=== PATIENT | male | born 1945 | race Caucasian/White ===

== ENCOUNTER 2018-05-07 09:14 | Emergency (ER) | payer MEDICARE, SELFPAY ==
[2018-05-07 09:16] VITALS: BP 127/71; PULSE 84; RESP 14; TEMP 36.9; O2SAT 92; BMI 27.1
--- NOTE | 2018-05-07 09:31 | EKG12_ITS ---
Test Reason : SOB/BACK PAIN Blood Pressure : / mmHG Vent. Rate : 064 BPM Atrial Rate : 065 BPM P-R Int : 252 ms QRS Dur : 082 ms QT Int : 448 ms P-R-T Axes : 062 063 059 degrees QTc Int : 462 ms Sinus rhythm with marked sinus arrhythmia with 1st degree A-V block Otherwise normal ECG Confirmed by KAYLI BARRIOS, BRISSA ([id number]), editor producer ARMAAN GARCIA ([id number]) on 05/12/2018 9:06:52 AM Referred By: HEIDI Confirmed By:BRISSA MILAN MD
--- NOTE | 2018-05-07 09:31 | RAD_ITS ---
STUDY: X-RAY CHEST REASON FOR EXAM: Male, 73 years old. 2 week history of shortness of breath. TECHNIQUE: PA and lateral views of the chest. COMPARISON: Comparison is made with prior study dated August 16, 2014. FINDINGS: EKG electrodes are seen. Stable increased linear markings at the lung bases suggestive of scarring. There is no demonstrated pleural abnormality. There is mild cardiac enlargement. Normal mediastinum and lori. Normal visualized pulmonary arteries. There is atherosclerotic calcification of the aortic arch with tortuosity. There are diffuse degenerative changes of the visualized thoracic spine. Healed fracture of the right 10th rib. There is no demonstrated abnormality of the visualized soft tissue structures of the upper abdomen. RAD/Chest PA and Lateral IMPRESSION: Stable increased markings at the lung bases suggestive of scarring. Mild cardiomegaly. Electronically Signed: Mateo Amador, at 11:15 EST , Service support ,
[2018-05-07 09:50] VITALS: PULSE 73; RESP 17; O2SAT 96
[2018-05-07] MEDS: Ipratropium/Albuterol Sulfate 3 ML AMPUL.NEB INHALATION (09:50)
[2018-05-07 09:55] LABS: Absolute Lymphocyte Count 1.87 X10^3/ul (0.83-4.51); Absolute Neutrophil Count 6.3 X10^3/uL (2.0-7.7); Basophil# 0.02 X10^3/uL; Basophil% 0.2 % (0-1); Eosinophil# 0.23 X10^3/uL; Eosinophils% 2.4 % (0-5); Hematocrit 47.3 % (40-54); Hemoglobin 16.5 g/dl (13.0-16.5); Lymphocyte # 1.87 X10^3/ul (4.0); Lymphocyte % 19.8 % (19-41); Mean Corp Hgb Conc 34.9 g/gl (32-36); Mean Corpuscular Hgb 32.4 pg (27.0-32.0); Mean Corpuscular Volume 92.7 fL (80-94); Mean Platelet Vol. 10.9 fl (6.2-12.0); Monocyte# 0.96 X10^3/uL; Monocyte% 10.2 % (0-10); Neutrophil # 6.32 X10^3/uL (2.7-7.7); Platelet Count 440 K/mm3 (150-450); RBC Distribution Width CV 14.3 % (11.6-14.6); White Blood Count 9.4 K/mm3 (4.4-11.0)
[2018-05-07 10:01] LABS: Anion Gap 7 (5-15); BUN 10 mg/dL (7-18); BUN/Creat Ratio 9.9 RATIO (10-20); Chloride 96 mmol/L (98-107); Creatinine, Serum 1.01 mg/dL (0.70-1.30); EST Glomerular Filtration Rate 77 mL/min (>60); Est Glom Filt Rate - Afr Amer 93 mL/min (>60); Estimated Creatinine Clearance 61.14 ml/min; Glucose 111 mg/dL (74-106); POSITIVE COUNT NO; POSITIVE DIFFERENTIAL NO; POSITIVE MORPHOLOGY NO; Sodium Level 132 mmol/L (136-145)
--- NOTE | 2018-05-07 11:01 | ED.DCSUM_ITS ---
- ER Visit Summary Date of Service: 05/07/18 Chief Complaint: Back pain History of Present Illness: The patient is a 73 M who goes to the [facility]. He reports that he has had a cough for the past 1-2 weeks. Productive green/white sputum without blood. Denies any fever or chills. Does report that he has shortness of breath that is severe with walking or coughing. Is mild at rest. Is not on home O2. He does use albuterol and Symbicort. Patient reports approximately 1 week ago he had the onset of left upper back pain. He describes it as sharp pain is 1010 worst 5-10 currently. Is worsened by movement or coughing. Is relieved by nothing. Denies any radiation to his legs. No numbness or weakness in his legs. No problem with his bowels or his bladder. No groin numbness. No recent trauma. No fall, MVA, or change in activity. Physical Examination: Vitals: Stable. Afebrile. General: A&O x 3. NAD. Cardiovascular exam: Regular rate and rhythm, no murmur, rub or gallop. Respiratory exam: No respiratory distress. Mild wheezing bilaterally. Good air movement. Abdominal exam: Soft, nontender, nondistended, normal bowel sounds. No peritoneal signs. Back: Moderate tenderness palpation of the paraspinous musculature left lower thoracic region. No vertebral tenderness. No point tenderness. Negative straight leg bilaterally. 5/5 DF, PF, EHL bilaterally. Normal sensation to light touch throughout. Extremity: No clubbing, cyanosis, or edema. Test Results: EKG is sinus with first-degree AV block rate is 64 with no acute changes. CBC shows monocytes 10. Chem-7 shows a sodium 132, potassium 3.0, chloride 96, glucose 111. Influenza is negative. Chest x-ray shows chronic changes. Emergency Department Course and Treatment: Patient was treated with morphine and Zofran IV. He was given Solu-Medrol IV. Was given albuterol and Atrovent aerosols. He is resting comfortably. Treatment Plan: Had a prolonged discussion with patient that I suspect that he pulled something in his coughing. He will be discharged with [place] and Colace for pain. He will be placed on a 5-day burst of prednisone and Zithromax for his COPD exacerbation. [facility] if not improving. Return to the emergency department for any worsening symptoms. Disposition: To home in improved and stable condition. Impression: 1. COPD exacerbation. 2. Thoracic back strain. This note was generated with [employer] dictation software. It may contain incorrect words, spelling, and punctuation that were not noted in review of the chart prior to signing ED Disposition - Plan for ED Patient: Disposition: Home or Assisted Living Instructions: ED Spasm Back No Trauma Prescriptions: Oxycodone HCl/Acetaminophen [Percocet 5/325] 1 tablet PO Q6H PRN PRN 5 Days #20 tablet PRN Reason: Pain Azithromycin [Zithromax Z-Garrison] 250 mg PO UD #1 box Docusate Sodium [Colace] 100 mg PO DAILY #20 capsule Potassium Chloride [K-Dur] 40 meq PO DAILY #10 tablet Prednisone [Deltasone] 60 mg PO DAILY #15 tablet [facility] - 3-5 Days if not improving
[2018-05-07] MEDS: MethylPREDNISolone 125 MG/2 ML Vial IV (11:17)
[2018-05-07] MEDS: Ondansetron 4 MG/2 ML Vial IV (11:17)
[2018-05-07] MEDS: Azithromycin 250 MG Tablet 500 MG PO (11:17)
[2018-05-07] MEDS: Morphine 4 MG/ML Syringe IV (11:17)
[2018-05-07] MEDS: 0.9% Normal Saline 1,000 ML 999 ML IV (11:18)
[2018-05-07 11:39] VITALS: O2SAT 92
[2018-05-07 13:39] VITALS: BP 114/70; PULSE 73; RESP 20; O2SAT 91
== END 2018-05-07 13:40 | disposition home or self-care (01) ==
PROVIDERS: Emergency Provider Emergency Medicine
DX: J44.1 Chronic obstructive pulmonary disease with (acute) exacerbation (principal); S29.012A Strain of muscle and tendon of back wall of thorax, initial encounter; X58.XXXA Exposure to other specified factors, initial encounter; Y93.9 Activity, unspecified; Y92.9 Unspecified place or not applicable; Y99.9 Unspecified external cause status; I44.0 Atrioventricular block, first degree; I10 Essential (primary) hypertension; E78.00 Pure hypercholesterolemia, unspecified; F17.210 Nicotine dependence, cigarettes, uncomplicated
CPT/HCPCS: 71046; 80048; 85025; 87804; 93005; 94640; 96361; 96374; 96375; 99285; J7030; A4216; J2405

== ENCOUNTER 2018-05-21 23:14 | Inpatient (IN) | payer OTHER, MEDICARE, SELFPAY ==
[2018-05-21 23:15] VITALS: BP 143/76; PULSE 87; RESP 18; TEMP 37.2; O2SAT 91; BMI 25.0
--- NOTE | 2018-05-21 23:39 | RAD_ITS ---
HISTORY: Cough and short of breath. EXAM: XR Chest 2 Views: COMPARISON: 05/07/18 CXR FINDINGS: LINES/DEVICES: None. LUNGS: There are chronic interstitial changes. Mild emphysema. No pneumothorax. No consolidation or effusion. MEDIASTINUM AND CARDIOVASCULAR STRUCTURES: Cardiac silhouette not enlarged. Central airways and mediastinal contour are unremarkable. BONES AND SOFT TISSUES: Unremarkable. RAD/Chest PA and Lateral IMPRESSION: Chronic interestitial changes and mild emphysema. No radiographic evidence of acute cardiopulmonary disease. at 0143 Reported and signed by: Cali Real MD Electronically Signed: Cali Real, at 1:42 EDT Tel , Service support ,
--- NOTE | 2018-05-21 23:39 | EKG12_ITS ---
Test Reason : SOB Blood Pressure : / mmHG Vent. Rate : 060 BPM Atrial Rate : 070 BPM P-R Int : 236 ms QRS Dur : 080 ms QT Int : 386 ms P-R-T Axes : 048 081 032 degrees QTc Int : 386 ms Sinus rhythm with marked sinus arrhythmia with 1st degree A-V block Otherwise normal ECG Confirmed by KAYLI BARRIOS, BRISSA ([id number]), telegraph editor CATHERINE HORVATH ([id number]) on 05/25/2018 11:45:56 AM Referred By: DR ECHEVARRIA Confirmed By:BRISSA MILAN MD
[2018-05-21 23:50] VITALS: PULSE 72; RESP 26
[2018-05-21] MEDS: Ipratropium/Albuterol Sulfate 3 ML AMPUL.NEB INHALATION (23:59)
[2018-05-21] MEDS: Albuterol 2.5 MG/3 ML VIAL.NEB. INHALATION (23:59)
[2018-05-22] VITALS (18 sets, daily range): BP systolic 102–137; BP diastolic 57–83; PULSE 54–86; RESP 16–29; TEMP 36.6–36.9; O2SAT 92–97; BMI 25.7
[2018-05-22] MEDS: MethylPREDNISolone 125 MG/2 ML Vial IV (00:03)
[2018-05-22 00:19] LABS: Absolute Lymphocyte Count 0.68 X10^3/ul (0.83-4.51); Absolute Neutrophil Count 7.6 X10^3/uL (2.0-7.7); Basophil# 0.02 X10^3/uL; Basophil% 0.2 % (0-1); Hematocrit 46.3 % (40-54); Hemoglobin 16.3 g/dl (13.0-16.5); Lymphocyte # 0.68 X10^3/ul (4.0); Lymphocyte % 7.3 % (19-41); Mean Corp Hgb Conc 35.2 g/gl (32-36); Mean Corpuscular Hgb 33.3 pg (27.0-32.0); Mean Corpuscular Volume 94.5 fL (80-94); Mean Platelet Vol. 11.7 fl (6.2-12.0); Monocyte# 0.99 X10^3/uL; Monocyte% 10.6 % (0-10); Neutrophil # 7.59 X10^3/uL (2.7-7.7); Neutrophil % 81.7 % (47-70); Platelet Count 264 K/mm3 (150-450); RBC Distribution Width CV 14.2 % (11.6-14.6); RBC Distribution Width SD 48.4 fl (35.1-43.9); White Blood Count 9.3 K/mm3 (4.4-11.0)
[2018-05-22 00:20] LABS: POSITIVE COUNT NO; POSITIVE DIFFERENTIAL NO; POSITIVE MORPHOLOGY NO
[2018-05-22 00:31] LABS: Anion Gap 8 (5-15); BUN 14 mg/dL (7-18); BUN/Creat Ratio 13.1 RATIO (10-20); Calcium,Total 8.6 mg/dL (8.5-10.1); Chloride 100 mmol/L (98-107); Creatinine, Serum 1.07 mg/dL (0.70-1.30); EST Glomerular Filtration Rate 72 mL/min (>60); Est Glom Filt Rate - Afr Amer 87 mL/min (>60); Estimated Creatinine Clearance 57.71 ml/min; Glucose 84 mg/dL (74-106); Potassium 3.6 mmol/L (3.5-5.1); Sodium Level 135 mmol/L (136-145)
--- NOTE | 2018-05-22 00:38 | ED.RN ---
PTS SISTER VITA WAS NOTIFIED PER PT REQUEST THAT HE WAS BEING SEEN IN THE EMERGENCY DEPARTMENT AND IS IN STABLE CONDITION. SHE STATED SHE WOULD CALL HIM IN THE MORNING TO CHECK ON HIM
--- NOTE | 2018-05-22 02:23 | ED.VISSUMM ---
- ER Visit Summary Date of Service: 05/22/18 Chief Complaint: Shortness of breath History of Present Illness: The patient is a 73 M who presents with shortness of breath. He does have a history of COPD. He has been worse since yesterday. He complains of congestion rhinorrhea shortness of breath and productive cough. He denies any pain. No fevers or vomiting. Physical Examination: Afebrile initial pulse ox 91% on room air Moist mucous membranes Heart regular rate and rhythm Decreased air exchange inspiratory and expiratory wheezing tachypnea Abdomen soft Alert Skin warm and dry Test Results: EKG shows sinus arrhythmia with a first-degree AV block at a rate of 60 similar to prior. CBC BMP unremarkable. Two-view chest x-ray shows chronic changes no acute disease. Emergency Department Course and Treatment: Patient was treated with IV Solu-Medrol as well as albuterol and Atrovent aerosols. He was placed on nasal cannula. On reevaluation his pulse ox is 92% even on 2 L. He is still tachypneic. Therefore I do feel he will need admitted. He was given additional aerosols and will be discussed with the hospitalist for admission. Treatment Plan: [] Disposition: Admit Impression: Acute COPD exacerbation This note was generated with [employer] dictation software. It may contain incorrect words, spelling, and punctuation that were not noted in review of the chart prior to signing ED Disposition - Plan for ED Patient: [facility] -
[2018-05-22] MEDS: Ipratropium/Albuterol Sulfate 3 ML AMPUL.NEB INHALATION ×6 (02:30→22:17)
[2018-05-22] MEDS: Albuterol 2.5 MG/3 ML VIAL.NEB. INHALATION (02:30)
--- NOTE | 2018-05-22 02:38 | PCM.HP.STD ---
Problem List (1) Tobacco abuse Status: Chronic (2) Chronic obstructive lung disease Status: Chronic (3) Benign essential hypertension Status: Chronic (4) COPD exacerbation Status: Chronic History of Present Illness Date of Admission: 05/22/18 Chief Complaint: shortness of breath The patient is a 73 year old M with a significant history of tobacco abuse; essential hypertension; and COPD who presented to the emergency department because of persistent shortness of breath at rest which markedly increases with exertion. Associated with her symptoms is predominantly dry, but occasionally productive with green sputum. Also he has nasal congestion, runny nose and teary eyes. Reportedly he completed a course of prednisone 1-2 weeks ago. Also he completed a course of azithromycin about a week ago. Past Medical History Past Medical History (Chronic Problems): Chronic Problems COPD exacerbation (Chronic) Tobacco abuse (Chronic) Chronic obstructive lung disease (Chronic) Benign essential hypertension (Chronic) Allergies No Known Allergies Allergy (Verified 05/21/18 23:17) Home Medications: Ambulatory Orders Medication Instructions Recorded Budesonide/Formoterol 160/4.5 2 puff INHALATION BID #1 inhaler 06/27/14 [Symbicort 160/4.5 Mcg Inhaler (SP)] Finasteride [Proscar] 5 mg PO DAILY 08/14/14 Multivitamins,Therapeutic 1 tablet PO DAILY 08/14/14 [Multivitamin] Simvastatin [Zocor] 40 mg PO QHS 08/14/14 Tamsulosin HCl [Flomax] 0.8 mg PO DAILY 08/14/14 Travoprost 0.004% [Travatan 0.004% 1 drop EACH EYE DAILY 08/14/14 Eye Drop] predniSONE tablet 60 mg PO DAILY #15 tablet 08/14/14 Amlodipine [Norvasc] mg PO DAILY 08/15/14 Lisinopril [Zestril] mg PO 08/15/14 hydrOXYzine tablet [Atarax] mg PO TID PRN PRN 08/15/14 Lorazepam [Ativan] 0.5 mg PO TID #14 tablet 08/16/14 Azithromycin [Zithromax Z-Garrison] 250 mg PO UD #1 box 05/07/18 Docusate Sodium [Colace] 100 mg PO DAILY #20 capsule 05/07/18 Potassium Chloride [K-Dur] 40 meq PO DAILY #10 tablet 03/07/19 Prednisone [Deltasone] 60 mg PO DAILY #15 tablet 05/07/18 Surgical History: no surgical history Lives: Alone Smoking Status: Current every day smoker Tobacco Use: Cigarettes Alcohol: None - *Family History Maternal History Items: - - Denies any maternal family history. Paternal History Items: - - Denies any paternal family history. Review of Systems Constitutional: Reports: Anorexia. Denies: Chills, Fever, Weight Change HEENT: Reports: Sinus Congestion, Sinus Drainage. Denies: Head Aches Cardiovascular: Denies: Chest Pain, Palpitations Respiratory: Reports: Cough, Shortness of breath at rest, Sputum production Gastrointestinal: Denies: Abdominal Pain, Nausea, Vomiting Genitourinary: Denies: Dysuria Musculoskeletal: Denies: Joint Pain, Joint Tenderness Skin: Denies: Rash, Wounds Neurological: Denies: Numbness, Tingling, Focal weakness Psychiatric: Denies: Anxiety, Depression, Homicidal Ideations, Suicidal Ideations Hematologic/ Lymphatic: Denies: Easy Bruising, Easy Bleeding VTE Information - Inpt Only VTE Present on Admission: No VTE Mechan Device Prophylaxis: None VTE Pharm Prophylaxis ordered?: Yes - Physical Exam General: Alert, Oriented x3, Cooperative HEENT: Atraumatic, PERRLA, EOMI, Normocephalic Neck: Supple, Trachea Midline Lungs: Diminished, Tachypneic Cardiovascular: Regular rate, No murmurs Abdomen: Bowel Sounds Present, Soft, Non Tender Extremities: No edema, Capillary Refill Less than 3 Seconds Skin: No rashes, No breakdown Musculoskeletal: No Tenderness to Palpation of Joints or Extremities Neurological: Neuro grossly intact Psych/Mental Status: Normal Affect, Appropriate Vital Signs Temp Pulse Resp BP Pulse Ox 99.0 F 70 18 105/57 L 93 05/21/18 23:15 05/22/18 02:30 05/22/18 02:30 05/22/18 01:11 05/22/18 02:31 Oxygen Flow Rate (L/min) 2 Oxygen Delivery Method Nasal Cannula Weight: 74.843 kg Body Mass Index (BMI) 25.0 Laboratory Tests Past 24 Hrs 05/22/18 05/22/18 00:01 00:01 WBC 9.3 RBC 4.90 Hgb 16.3 Hct 46.3 MCV 94.5 H MCH 33.3 H MCHC 35.2 RDW 14.2 RDW Differential 48.4 H Plt Count 264 MPV 11.7 Immature Gran % (Auto) 0.200 Neut % (Auto) 81.7 H Lymph % (Auto) 7.3 L [place] % (Auto) 10.6 H Eos % (Auto) 0.0 Baso % (Auto) 0.2 Absolute Neuts (auto) 7.6 Absolute Lymphs (auto) 0.68 L Total Counted Not Reportable Sodium 135 L Potassium 3.6 Chloride 100 Carbon Dioxide 27.0 Anion Gap 8 BUN 14 Creatinine 1.07 Estim Creat Clear Calc 57.71 Est GFR (MDRD) Af Amer 87 Est GFR (MDRD) Non-Af 72 BUN/Creatinine Ratio 13.1 Glucose 84 Calcium 8.6 Assessment/Plan The patient is a 73 year old M with a significant history of tobacco abuse; essential hypertension; and COPD who presented to the emergency department because of persistent shortness of breath at rest which markedly increases with exertion; productive cough consistent with likely COPD exacerbation. COPD exacerbation CXR independently reviewed confirms hyperinflation without any acute cardia pulmonary process. EKG independently reviewed confirms sinus arrhythmia with first-degree AV block. Review of old records shows that EKG is unchanged. Scheduled DuoNeb Albuterol as needed Solu-Medrol continued Received doxycycline in the emergency department. We will continue exactly. Oxygen as needed. Mucinex ordered. Hypertension On presentation his blood pressure was within goal Trend blood pressures Tobacco abuse Patient smoked 2 packs/day. Counseled Nicotine patch ordered. DVT prophylaxis: subcutaneous Lovenox ordered. Code Visit Inpatient E&M: 01440 Init Hosp L3
[2018-05-22] MEDS: Doxycycline 100 MG CAPSULE PO ×3 (03:00→21:50)
[2018-05-22] MEDS: 0.9% NaCl Peripheral Flush Adult/Peds IV ×3 (05:13→21:50)
[2018-05-22] MEDS: guaiFENesin 1,200 MG Tablet 1200 MG PO ×2 (05:13→21:50)
[2018-05-22] MEDS: Enoxaparin 40 MG/0.4 ML Syringe SC (09:26)
--- NOTE | 2018-05-22 09:34 | NURSING ---
Message left with nurse at [facility] in [place] to get home med list faxed.
--- NOTE | 2018-05-22 10:38 | PCM.PN.BLA ---
Progress Note 73-year-old male with past medical history of chronic nicotine dependence, hypertension, COPD admitted with shortness of breath. Patient was admitted to the floor and managed as acute COPD exacerbation. Respiratory panel was positive for influenza. Started on Tamiflu. He was seen and examined. Complains of feeling of wanting to smoke. Feels restless. Denied any fever or chills. On 2 L of oxygen which is new for him. Vitals are stable. Labs reviewed Chest X-ray negative for acute cardiopulmonary infiltrate Physical exam is significant for patient being relatively dyspneic on 2 L of oxygen, slight central and peripheral cyanosis Generalized wheezes on exam Continue with breathing treatment IV Solu-Medrol, Tamiflu, nicotine replacement, doxycycline
--- NOTE | 2018-05-22 13:20 | CASEMGMT ---
Addendum entered by Jf Montesinos 05/22/18 17:47: Call placed to the [facility] and spoke to SUSANA Hargrove. She was made aware of hospitalization and possible discharge over the weekend. She asked for pt to be instructed to contact [facility] on Friday so they can make a follow-up appt with them. She was made aware pt may discharge home with O2 but will need Home O2 qualification testing completed 1st and that he is agreeable to having it billed through [facility]. She asked for SUSANA VAZQUEZ to complete Home Oxygen Program packet with pt and fax to [facility]. She states if pt would decide in the future to have his O2 be provided through the [facility] instead of [facility], that he would have to drive up to [facility] to complete this paperwork if it is not done here while @ the hospital. SUSANA VAZQUEZ to room to complete Home Oxygen Program packet. Reviewed information with pt and forms signed by pt. Discussed importance of pt not smoking while using Oxygen. Pt voices understanding and states he plans on quitting. Unable to complete entire packet d/t home oxygen qualification testing has not been completed. CM to finish completing this information once it is available. Packet will need faxed to [facility] @ [phone]. Discharge instructions and summary to be faxed to [facility] @ when pt is discharged. Pt instructed to call the [facility] on Friday to schedule a follow-up appt. Pt voices understanding. Gene VELAZQUEZ RN, CM Original Note: SUSANA VAZQUEZ HOTEL OR MOTEL CLEANING SUPERVISOR TAYLOR to room to meet with patient for initial transition planning/care coordination assessment. SUSANA VAZQUEZ introduced self and role at [facility]. Pt voices understanding and consents to assessment at this time. Pt sitting up in bed in no distress at this time. Pt is A/O at this time and answers all questions appropriately. Care providers, pharmacy, and demographics verified/updated at this time. PCP: @ [facility]. CITY PLANT SUPERVISOR SUSANA Avila Specialists: Eye doctor @ [facility]. Preferred Pharmacy: [facility] for short-term. Insurance: [facility] A & B, [facility] Prescription Benefit: @ [facility]. Voices concern over cost of medication [facility], as he does not have any prescription benefit other than [facility]. Pt stated, I don't have any money. Pt states he could afford to pay $10-15 if he needed to. Will need collins check @ [facility] if discharges over the weekend. Pt would like to be notified of [id number] cost before he is discharged. Living Will/HPOA: Does not have LW or HCPOA. States is interested in completing paperwork. Brian FRASER, notified pt wishing to complete AD paperwork and also pt's financial concerns. LNOK: Son, Isaias, who lives in [place], [place]. Pt states does not see him often. Sister, Fatmata. Living Arrangements: Lives alone in one-story apt. No stairs. Independent. Transportation: Pt states drives self and states no transportation concerns at this time. States drove himself to the hospital and plans on driving home on discharge. States sister can assist with transportation if needed. DME: Denies using any DME and denies needs. Does not have Home O2, BIPAP/CPAP, or nebulizer. Will need home O2 qualification testing completed prior to discharge. Agreeable to having O2 billed through [facility]. States no preference of DME company but voices concern of any [id number] cost he may have. Call placed to [facility] and spoke to [place]. [facility] will cover 80% and [facility] will be billed the remainder 20%. Pt made aware and voiced appreciation of SUSANA VAZQUEZ getting this information. Pt states no need for further DME at this time. HHC/SNF: No history of either and pt denies needs. No needs identified. Discussed CCN for COPD but pt declines wanting referral made. Pt wishes to return home and states has no concerns with going home at time of discharge. Pt voices no further concerns/needs at this time. Advised pt to ask for CM if any further questions/concerns/needs arise. Voices understanding. PLAN: Home Gene VELAZQUEZ RN, CM
--- NOTE | 2018-05-22 13:47 | CASEMGMT ---
SUSANA VAZQUEZ NOTE: Reviewed [facility] Transfer Decl[facility] Form with pt. Pt states he does not wish to transfer to . Form signed by pt. Copy made and placed on chart. Pt given original. Form faxed to @ [phone], along with H/P, and demographics sheet. Gene VELAZQUEZ RN CM
--- NOTE | 2018-05-22 15:09 | CASEMGMT ---
Social Work Note SW received referral for advanced directives and financial. SW met with pt. SW introduced self and role at [facility]. Pt is alert and orientated x3. SW assisted pt with completed advanced directives. SW asked pt if he had financial concerns. Pt states no. SW provided pt with financial resources in the event he discharges home and needs assistance. SW provided pt with Medicaid application, prescription assistance, [employer], and prescription [employer]OPE resources. SW encouraged pt to review paperwork. Pt states understanding, denied additional needs or concerns at this time. BRIA placed copy of pt's advanced directives on pt's chart and provided pt with original copy. Kalyn Mcdowell [employer], FOOTWEAR PRODUCTION MACHINE OPERATOR
[2018-05-22] MEDS: Oseltamivir Phosphate 30 MG Capsule PO ×2 (15:30→21:50)
[2018-05-22] MEDS: Acetaminophen 325 MG Tablet 650 MG PO (15:30)
[2018-05-22] MEDS: Aspirin 81 MG TAB.CHEW PO (15:34)
[2018-05-22] MEDS: MELATONIN 3 MG TABLET PO (21:50)
[2018-05-22] MEDS: Latanoprost 0.005% 1 Bottle 1 DRP EACH EYE (21:50)
[2018-05-22] MEDS: amLODIPine 5 MG Tablet PO (21:50)
[2018-05-22] MEDS: Atorvastatin Calcium 20 MG Tablet PO (21:50)
[2018-05-23] VITALS (21 sets, daily range): BP systolic 103–134; BP diastolic 62–81; PULSE 50–90; RESP 16–28; TEMP 36.6–36.9; O2SAT 85–95
[2018-05-23] MEDS: Ipratropium/Albuterol Sulfate 3 ML AMPUL.NEB INHALATION ×6 (02:45→22:58)
[2018-05-23] MEDS: Haloperidol 5 MG Tablet 2.5 MG PO (03:49)
[2018-05-23] MEDS: 0.9% NaCl Peripheral Flush Adult/Peds IV ×3 (06:04→21:48)
[2018-05-23] MEDS: Enoxaparin 40 MG/0.4 ML Syringe SC (10:02)
[2018-05-23] MEDS: amLODIPine 5 MG Tablet PO (10:03)
[2018-05-23] MEDS: Lisinopril 40 MG Tablet PO (10:03)
[2018-05-23] MEDS: Tamsulosin HCl 0.4 MG Capsule 0.8 MG PO (10:03)
[2018-05-23] MEDS: Doxycycline 100 MG CAPSULE PO ×2 (10:03→21:46)
[2018-05-23] MEDS: Oseltamivir Phosphate 30 MG Capsule PO ×2 (10:03→21:47)
[2018-05-23] MEDS: hydroCHLOROthiazide 25 MG Tablet PO (10:03)
[2018-05-23] MEDS: guaiFENesin 1,200 MG Tablet 1200 MG PO ×2 (10:13→21:46)
--- NOTE | 2018-05-23 11:55 | CM.UR ---
Met face to face with patient to explain that he will have to go to [facility] within the month in order to keep the oxygen they send to him. Instructed the importance and that they will remove the oxygen if he fails to see them timely. Verified his address was correct. Instructed on the process for arranging the o2. Also instructed on routine checking to see if he is smoking. SUSANA Arvizu, CCM.
--- NOTE | 2018-05-23 12:11 | PCM.PN.HOSP ---
Subjective: Patient is short of breath. Patient is frustrated of his general health and respiratory distress. He feels like is not getting better as per his expectation even though was admitted on 05/22/2018. Patient has advanced COPD Vitals/I&O's: Vital Signs Temp Pulse Resp BP Pulse Ox 98.3 F 66 16 114/70 95 05/23/18 09:00 05/23/18 11:14 05/23/18 11:14 05/23/18 09:00 05/23/18 09:00 Oxygen Flow Rate (L/min) 2 Oxygen Delivery Method Nasal Cannula Weight: 169 lb 3 oz Body Mass Index (BMI) 25.7 Intake and Output for Last 24 Hours 05/21/18 05/22/18 05/23/18 23:59 23:59 23:59 Intake Total 610 / 610 600 / 600 Output Total 400 / 400 Balance 210 / 210 600 / 600 General: Alert, Oriented x3, Cooperative HEENT: Atraumatic, PERRLA, EOMI, Normocephalic Oral: Dry Mucosa Neck: Supple, No JVD, Negative Carotid Bruits Lungs: Diminished - Air entry severely diminished in all lung laird., Rhonchi, Short of Breath, Tachypneic, Wheezes Cardiovascular: Regular rate, Regular Rhythm, Normal S1, Normal S2, No murmurs Abdomen: Bowel Sounds Present, Soft, Non Tender, Non-Distended Extremities: No edema, Capillary Refill Less than 3 Seconds Skin: No rashes, No breakdown Musculoskeletal: No Tenderness to Palpation of Joints or Extremities, Arthritic Changes, Muscle Wasting Lymphatic: No Cervical, Supraclavicular, or Inguinal Adenopathy Neurological: Cranial nerves II-XII grossly intact, Deep Tendon Reflexes 2+/4 and Symmetrical, Neuro grossly intact Psych/Mental Status: Normal Affect, Appropriate Microbiology Past 72 Hours 05/22/18 04:55 Mucosa - Nasopharyngeal Respiratory Panel (PCR) - Final Influenza A (Subtype H3) Current Medications Acetaminophen (Tylenol) 650 mg PO Q6H PRN PRN PRN Reason: HEADACHE Last Admin: 05/22/18 15:30 Dose: 650 mg Albuterol Sulfate (Ventolin Aerosols) 2.5 mg INHALATION Q2H PRN PRN PRN Reason: SHORTNESS OF BREATH Albuterol/Ipratropium (Duoneb) 3 ml INHALATION Q4H.RT [facility] Last Admin: 05/23/18 11:14 Dose: 3 ml Amlodipine Besylate (Norvasc) 5 mg PO DAILY [facility] Last Admin: 05/23/18 10:03 Dose: 5 mg Atorvastatin Calcium (Lipitor) 20 mg PO QHS [facility] Last Admin: 05/22/18 21:50 Dose: 20 mg Doxycycline Monohydrate (Doxycycline) 100 mg PO BID [facility] Last Admin: 05/23/18 10:03 Dose: 100 mg Enoxaparin Sodium (Lovenox) 40 mg SC DAILY@1000 [facility] Last Admin: 05/23/18 10:02 Dose: 40 mg Guaifenesin (Mucinex) 1,200 mg PO BID [facility] Last Admin: 05/23/18 10:13 Dose: 1,200 mg Hydrochlorothiazide (Hctz) 25 mg PO DAILY [facility] Last Admin: 05/23/18 10:03 Dose: 25 mg Latanoprost (Xalatan Opthalmic) 1 drop EACH EYE QHS [facility] Last Admin: 05/22/18 21:50 Dose: 1 drop Lisinopril (Zestril) 40 mg PO DAILY [facility] Last Admin: 05/23/18 10:03 Dose: 40 mg Magnesium Hydroxide (Milk Of Magnesia) 30 ml PO DAILY PRN PRN PRN Reason: Constipation Melatonin (Melatonin) 3 mg PO QHS [facility] Last Admin: 05/22/18 21:50 Dose: 3 mg Methylprednisolone (Solu-Medrol) 40 mg IV Q8 [facility] Last Admin: 05/23/18 06:02 Dose: 40 mg Nicotine (Nicoderm Cq (Pbkc)) 21 mg TRANSDERM. DAILY [facility] Last Admin: 05/23/18 10:02 Dose: 21 mg Nicotine Polacrilex (Rugby Nicotine (Bkc)) 2 mg PO Q2H PRN PRN PRN Reason: Nicotine Craving Nystatin (Nystatin) 500,000 unit PO 4X/DAY [facility] Ondansetron HCl (Zofran) 4 mg IV Q8H PRN PRN PRN Reason: NAUSEA Oseltamivir Phosphate (Tamiflu) 30 mg PO BID [facility] Stop: 05/26/18 22:01 Last Admin: 05/23/18 10:03 Dose: 30 mg Sodium Chloride () 5 - 15 ml IV UD PRN PRN Reason: SALINE FLUSH Last Admin: 05/23/18 06:04 Dose: 10 ml Tamsulosin HCl (Flomax) 0.8 mg PO DAILY [facility] Last Admin: 05/23/18 10:03 Dose: 0.8 mg Medical Necessity - Tobacco Use Smoking Status: Current every day smoker Tobacco Use: Cigarettes Assessment/Plan The patient is a 73 year old M with a significant history of tobacco abuse; essential hypertension; and COPD, not on home oxygen who presented to the emergency department because of persistent shortness of breath at rest which markedly increases with exertion; productive cough consistent with likely COPD exacerbation. 1. COPD exacerbation, most probably from influenza A, subtype H3 changed from injury with underlying advanced COPD: Chest x-ray showed no acute cardiopulmonary process. On bronchodilator, DuoNeb every 4 hourly, IV Solu-Medrol, doxycycline, oxygen and Mucinex. On Tamiflu. 2. Hypertension: Blood pressure is controlled. First-degree AV block on EKG with sinus arrhythmia 3. Chronic nicotine use, smoker, 2 packs/day. On nicotine patch. Smoking cessation counseling was done. 4. DVT prophylaxis on Lovenox Patient was tried to convince the presence of his son regarding course of the disease, COPD exacerbation, influenza A and requested patience and cooperate with treatment in order to get better. Patient and his son affirmed understanding. Code Visit Inpatient E&M: 84055 Subs Hosp L3
--- NOTE | 2018-05-23 12:17 | PN_ITS ---
Subjective: Patient is short of breath. Patient is frustrated of his general health and respiratory distress. He feels like is not getting better as per his e xpectation even though was admitted on 05/22/2018. Patient has advanced COPD Vitals/I&O's: Vital Signs Temp Pulse Resp BP Pulse Ox 98.3 F 66 16 114/70 95 05/23/18 09:00 05/23/18 11:14 05/23/18 11:14 05/23/18 09:00 05/23/18 09:00 Oxygen Flow Rate (L/min) 2 Oxygen Delivery Method Nasal Cannula Weight: 169 lb 3 oz Body Mass Index (BMI) 25.7 Intake and Output for Last 24 Hours 05/21/18 05/22/18 05/23/18 23:59 23:59 23:59 Intake Total 610 / 610 600 / 600 Output Total 400 / 400 Balance 210 / 210 600 / 600 General: Alert, Oriented x3, Cooperative HEENT: Atraumatic, PERRLA, EOMI, Normocephalic Oral: Dry Mucosa Neck: Supple, No JVD, Negative Carotid Bruits Lungs: Diminished - Air entry severely diminished in all lung laird., Rhonchi, Short of Breath, Tachypneic, Wheezes Cardiovascular: Regular rate, Regular Rhythm, Normal S1, Normal S2, No murmurs Abdomen: Bowel Sounds Present, Soft, Non Tender, Non-Distended Extremities: No edema, Capillary Refill Less than 3 Seconds Skin: No rashes, No breakdown Musculoskeletal: No Tenderness to Palpation of Joints or Extremities, Arthritic Changes, Muscle Wasting Lymphatic: No Cervical, Supraclavicular, or Inguinal Adenopathy Neurological: Cranial nerves II-XII grossly intact, Deep Tendon Reflexes 2+/4 and Symmetrical, Neuro grossly intact Psych/Mental Status: Normal Affect, Appropriate Microbiology Past 72 Hours 05/22/18 04:55 Mucosa - Nasopharyngeal Respiratory Panel (PCR) - Final Influenza A (Subtype H3) Current Medications Acetaminophen (Tylenol) 650 mg PO Q6H PRN PRN PRN Reason: HEADACHE Last Admin: 05/22/18 15:30 Dose: 650 mg Albuterol Sulfate (Ventolin Aerosols) 2.5 mg INHALATION Q2H PRN PRN PRN Reason: SHORTNESS OF BREATH Albuterol/Ipratropium (Duoneb) 3 ml INHALATION Q4H.RT [facility] Last Admin: 05/23/18 11:14 Dose: 3 ml Amlodipine Besylate (Norvasc) 5 mg PO DAILY [facility] Last Admin: 05/23/18 10:03 Dose: 5 mg Atorvastatin Calcium (Lipitor) 20 mg PO QHS [facility] Last Admin: 05/22/18 21:50 Dose: 20 mg Doxycycline Monohydrate (Doxycycline) 100 mg PO BID [facility] Last Admin: 05/23/18 10:03 Dose: 100 mg Enoxaparin Sodium (Lovenox) 40 mg SC DAILY@1000 [facility] Last Admin: 05/23/18 10:02 Dose: 40 mg Guaifenesin (Mucinex) 1,200 mg PO BID [facility] Last Admin: 05/23/18 10:13 Dose: 1,200 mg Hydrochlorothiazide (Hctz) 25 mg PO DAILY [facility] Last Admin: 05/23/18 10:03 Dose: 25 mg Latanoprost (Xalatan Opthalmic) 1 drop EACH EYE QHS [facility] Last Admin: 05/22/18 21:50 Dose: 1 drop Lisinopril (Zestril) 40 mg PO DAILY [facility] Last Admin: 05/23/18 10:03 Dose: 40 mg Magnesium Hydroxide (Milk Of Magnesia) 30 ml PO DAILY PRN PRN PRN Reason: Constipation Melatonin (Melatonin) 3 mg PO QHS [facility] Last Admin: 05/22/18 21:50 Dose: 3 mg Methylprednisolone (Solu-Medrol) 40 mg IV Q8 [facility] Last Admin: 05/23/18 06:02 Dose: 40 mg Nicotine (Nicoderm Cq (Pbkc)) 21 mg TRANSDERM. DAILY [facility] Last Admin: 05/23/18 10:02 Dose: 21 mg Nicotine Polacrilex (Rugby Nicotine (Bkc)) 2 mg PO Q2H PRN PRN PRN Reason: Nicotine Craving Nystatin (Nystatin) 500,000 unit PO 4X/DAY [facility] Ondansetron HCl (Zofran) 4 mg IV Q8H PRN PRN PRN Reason: NAUSEA Oseltamivir Phosphate (Tamiflu) 30 mg PO BID [facility] Stop: 05/26/18 22:01 Last Admin: 05/23/18 10:03 Dose: 30 mg Sodium Chloride () 5 - 15 ml IV UD PRN PRN Reason: SALINE FLUSH Last Admin: 05/23/18 06:04 Dose: 10 ml Tamsulosin HCl (Flomax) 0.8 mg PO DAILY [facility] Last Admin: 05/23/18 10:03 Dose: 0.8 mg Medical Necessity - Tobacco Use Smoking Status: Current every day smoker Tobacco Use: Cigarettes Assessment/Plan The patient is a 73 year old M with a significant history of tobacco abuse; essential hypertension; and COPD, not on home oxygen who presented to the emergency department because of persistent shortness of breath at rest which markedly increases with exertion; productive cough consistent with likely COPD exacerbation. 1. COPD exacerbation, most probably from influenza A, subtype H3 changed from injury with underlying advanced COPD: Chest x-ray showed no acute cardiopulmonary process. On bronchodilator, DuoNeb every 4 hourly, IV Solu- Medrol, doxycycline, oxygen and Mucinex. On Tamiflu. 2. Hypertension: Blood pressure is controlled. First-degree AV block on EKG with sinus arrhythmia 3. Chronic nicotine use, smoker, 2 packs/day. On nicotine patch. Smoking cessation counseling was done. 4. DVT prophylaxis on Lovenox Patient was tried to convince the presence of his son regarding course of the disease, COPD exacerbation, influenza A and requested patience and cooperate with treatment in order to get better. Patient and his son affirmed understanding. Code Visit Inpatient E&M: 15412 Subs Hosp L3
[2018-05-23] MEDS: NYSTATIN 500,000 UNIT/5 ML UDC 500000 UNIT PO ×3 (13:14→21:48)
[2018-05-23] MEDS: Acetaminophen 325 MG Tablet 650 MG PO ×2 (14:35→21:47)
[2018-05-23] MEDS: ALPRAZolam 0.5 MG Tablet PO (15:41)
[2018-05-23] MEDS: MELATONIN 3 MG TABLET PO (21:46)
[2018-05-23] MEDS: Atorvastatin Calcium 20 MG Tablet PO (21:46)
[2018-05-23] MEDS: traZODone 50 MG Tablet PO (21:48)
[2018-05-23] MEDS: Latanoprost 0.005% 1 Bottle 1 DRP EACH EYE (21:50)
[2018-05-24] VITALS (17 sets, daily range): BP systolic 101–123; BP diastolic 58–74; PULSE 50–90; RESP 16–24; TEMP 36.7–37.1; O2SAT 90–96
[2018-05-24] MEDS: Ipratropium/Albuterol Sulfate 3 ML AMPUL.NEB INHALATION ×5 (03:09→23:15)
[2018-05-24] MEDS: ALPRAZolam 0.5 MG Tablet PO ×2 (03:27→21:10)
[2018-05-24] MEDS: 0.9% NaCl Peripheral Flush Adult/Peds IV ×3 (06:26→21:07)
[2018-05-24] MEDS: Oseltamivir Phosphate 30 MG Capsule PO ×2 (10:44→21:10)
[2018-05-24] MEDS: hydroCHLOROthiazide 25 MG Tablet PO (10:44)
[2018-05-24] MEDS: guaiFENesin 1,200 MG Tablet 1200 MG PO ×2 (10:44→21:10)
[2018-05-24] MEDS: Tamsulosin HCl 0.4 MG Capsule 0.8 MG PO (10:44)
[2018-05-24] MEDS: Lisinopril 40 MG Tablet PO (10:44)
[2018-05-24] MEDS: NYSTATIN 500,000 UNIT/5 ML UDC 500000 UNIT PO ×4 (10:45→21:07)
[2018-05-24] MEDS: Doxycycline 100 MG CAPSULE PO ×2 (10:45→21:10)
[2018-05-24] MEDS: Enoxaparin 40 MG/0.4 ML Syringe SC (10:46)
[2018-05-24] MEDS: amLODIPine 5 MG Tablet PO (10:47)
--- NOTE | 2018-05-24 12:12 | PN_ITS ---
Subjective: Patient slept well yesterday. Patient has mild shortness of breath and wheezing. Mild chest tightness. On 2 L of oxygen. Vitals/I&O's: Vital Signs Temp Pulse Resp BP Pulse Ox 98.8 F 63 16 116/65 94 05/24/18 07:44 05/24/18 07:44 05/24/18 07:44 05/24/18 07:44 05/24/18 07:44 Oxygen Flow Rate (L/min) [ 2 AMBULATION with Oxygen] Oxygen Flow Rate (L/min) 1 Oxygen Delivery Method Nasal Cannula Weight: 169 lb 3 oz Body Mass Index (BMI) 25.7 Intake and Output for Last 24 Hours 05/22/18 05/23/18 05/24/18 23:59 23:59 23:59 Intake Total 610 / 610 2109 250 / 250 Output Total 400 / 400 Balance 210 / 210 2109 250 / 250 General: Alert, Oriented x3, Cooperative HEENT: Atraumatic, PERRLA, EOMI, Normocephalic Neck: Supple, No JVD, Negative Carotid Bruits Lungs: Diminished, Rhonchi, Short of Breath, Wheezes Cardiovascular: Regular rate, Regular Rhythm, Normal S1, Normal S2, No murmurs Abdomen: Bowel Sounds Present, Soft, Non Tender, Non-Distended Extremities: No edema, Capillary Refill Less than 3 Seconds Skin: No rashes, No breakdown Musculoskeletal: No Tenderness to Palpation of Joints or Extremities, Arthritic Changes, Muscle Wasting Neurological: Cranial nerves II-XII grossly intact, Deep Tendon Reflexes 2+/4 and Symmetrical, Neuro grossly intact Psych/Mental Status: Normal Affect, Appropriate Microbiology Past 72 Hours 05/22/18 04:55 Mucosa - Nasopharyngeal Respiratory Panel (PCR) - Final Influenza A (Subtype H3) Current Medications Acetaminophen (Tylenol) 650 mg PO Q6H PRN PRN PRN Reason: HEADACHE Last Admin: 05/23/18 21:47 Dose: 650 mg Albuterol Sulfate (Ventolin Aerosols) 2.5 mg INHALATION Q2H PRN PRN PRN Reason: SHORTNESS OF BREATH Albuterol/Ipratropium (Duoneb) 3 ml INHALATION Q4H.RT [facility] Last Admin: 05/24/18 11:04 Dose: 3 ml Alprazolam (Xanax) 0.5 mg PO TID PRN PRN Reason: anxiety Last Admin: 05/24/18 03:27 Dose: 0.5 mg Amlodipine Besylate (Norvasc) 5 mg PO DAILY [facility] Last Admin: 05/24/18 10:47 Dose: 5 mg Atorvastatin Calcium (Lipitor) 20 mg PO QHS [facility] Last Admin: 05/23/18 21:46 Dose: 20 mg Doxycycline Monohydrate (Doxycycline) 100 mg PO BID [facility] Last Admin: 05/24/18 10:45 Dose: 100 mg Enoxaparin Sodium (Lovenox) 40 mg SC DAILY@1000 [facility] Last Admin: 05/24/18 10:46 Dose: 40 mg Guaifenesin (Mucinex) 1,200 mg PO BID [facility] Last Admin: 05/24/18 10:44 Dose: 1,200 mg Hydrochlorothiazide (Hctz) 25 mg PO DAILY [facility] Last Admin: 05/24/18 10:44 Dose: 25 mg Latanoprost (Xalatan Opthalmic) 1 drop EACH EYE QHS [facility] Last Admin: 05/23/18 21:50 Dose: 1 drop Lisinopril (Zestril) 40 mg PO DAILY [facility] Last Admin: 05/24/18 10:44 Dose: 40 mg Magnesium Hydroxide (Milk Of Magnesia) 30 ml PO DAILY PRN PRN PRN Reason: Constipation Melatonin (Melatonin) 3 mg PO QHS [facility] Last Admin: 05/23/18 21:46 Dose: 3 mg Methylprednisolone (Solu-Medrol) 40 mg IV Q8 [facility] Last Admin: 05/24/18 06:25 Dose: 40 mg Nicotine (Nicoderm Cq (Pbkc)) 21 mg TRANSDERM. DAILY [facility] Last Admin: 05/24/18 10:44 Dose: 21 mg Nicotine Polacrilex (Rugby Nicotine (Bkc)) 2 mg PO Q2H PRN PRN PRN Reason: Nicotine Craving Nystatin (Nystatin) 500,000 unit PO 4X/DAY [facility] Last Admin: 05/24/18 10:45 Dose: 500,000 unit Ondansetron HCl (Zofran) 4 mg IV Q8H PRN PRN PRN Reason: NAUSEA Oseltamivir Phosphate (Tamiflu) 30 mg PO BID [facility] Stop: 05/26/18 22:01 Last Admin: 05/24/18 10:44 Dose: 30 mg Sodium Chloride () 5 - 15 ml IV UD PRN PRN Reason: SALINE FLUSH Last Admin: 05/24/18 06:26 Dose: 10 ml Tamsulosin HCl (Flomax) 0.8 mg PO DAILY [facility] Last Admin: 05/24/18 10:44 Dose: 0.8 mg Trazodone HCl (Desyrel) 50 mg PO QHS PRN PRN Reason: insomnia Last Admin: 05/23/18 21:48 Dose: 50 mg Medical Necessity - Tobacco Use Smoking Status: Current every day smoker Tobacco Use: Cigarettes Assessment/Plan The patient is a 73 year old M with a significant history of tobacco abuse; essential hypertension; and COPD, not on home oxygen who presented to the emergency department because of persistent shortness of breath at rest which markedly increases with exertion; productive cough consistent with likely COPD exacerbation. 1. COPD exacerbation, most probably from influenza A, subtype H3 changed from injury with underlying advanced COPD: Chest x-ray showed no acute cardiopulmonary process. On bronchodilator, DuoNeb every 4 hourly, IV Solu- Medrol, doxycycline, oxygen and Mucinex. On Tamiflu. 2. Hypertension: Blood pressure is controlled. First-degree AV block on EKG with sinus arrhythmia 3. Chronic nicotine use, smoker, 2 packs/day. On nicotine patch. Smoking cessation counseling was done. 4. DVT prophylaxis on Lovenox 5. Mild anxiety/depression: Patient is started on Xanax 0.5 mg 3 times daily as needed and trazodone 50 mg at bedtime as needed yesterday. Patient was tried to convince the presence of his son regarding course of the disease, COPD exacerbation, influenza A and requested patience and cooperate with treatment in order to get better. Patient and his son affirmed understanding. Code Visit Inpatient E&M: 34427 Subs Hosp L2
[2018-05-24] MEDS: Latanoprost 0.005% 1 Bottle 1 DRP EACH EYE (21:05)
[2018-05-24] MEDS: Acetaminophen 325 MG Tablet 650 MG PO (21:08)
[2018-05-24] MEDS: MELATONIN 3 MG TABLET PO (21:09)
[2018-05-24] MEDS: Atorvastatin Calcium 20 MG Tablet PO (21:09)
[2018-05-24] MEDS: traZODone 50 MG Tablet PO (21:10)
[2018-05-25] VITALS (10 sets, daily range): BP systolic 101–140; BP diastolic 52–80; PULSE 53–62; RESP 16–20; TEMP 36.4–36.9; O2SAT 87–97
[2018-05-25] MEDS: Ipratropium/Albuterol Sulfate 3 ML AMPUL.NEB INHALATION ×2 (02:54→10:23)
[2018-05-25] MEDS: Acetaminophen 325 MG Tablet 650 MG PO (05:39)
[2018-05-25] MEDS: 0.9% NaCl Peripheral Flush Adult/Peds IV (05:39)
[2018-05-25] MEDS: ALPRAZolam 0.5 MG Tablet PO (05:39)
[2018-05-25 06:28] LABS: Anion Gap 7 (5-15); BUN 43 mg/dL (7-18); BUN/Creat Ratio 46.8 RATIO (10-20); Calcium,Total 9.4 mg/dL (8.5-10.1); Chloride 104 mmol/L (98-107); Creatinine, Serum 0.92 mg/dL (0.70-1.30); EST Glomerular Filtration Rate 85 mL/min (>60); Est Glom Filt Rate - Afr Amer 103 mL/min (>60); Estimated Creatinine Clearance 67.12 ml/min; Glucose 169 mg/dL (74-106); Potassium 3.7 mmol/L (3.5-5.1); Sodium Level 140 mmol/L (136-145)
--- NOTE | 2018-05-25 09:39 | DCINST_ITS ---
- Discharge Diagnoses Current Active Problems: Current Active and Chronic Problems COPD exacerbation (Chronic) You will use the following diet at home:: Cardiac Discharge Activity: May Not Drive Weight Bearing Status: Weight bearing as tolerated Call your doctor if you observe: Fever of 101 or Higher, Inability to urinate, Inability to have a bowel movement, Shortness of breath, Dizziness, Swelling in the ankles, Chest pain, Increased palpitations (irregular heartbeat), Calf discomfort Allergies/Adverse Reactions: Allergies No Known Allergies Allergy (Verified 05/22/18 04:08) Medications to take at Discharge Simvastatin [Zocor] 40 mg PO QHS 08/14/14 Tamsulosin HCl [Flomax] 0.8 mg PO DAILY 08/14/14 Amlodipine [Norvasc] 5 mg PO DAILY 08/15/14 Budesonide/Formoterol 160/4.5 [Symbicort 160/4.5 Mcg Inhaler (SP)] 2 puff INHALATION BID 05/22/18 Latanoprost/Pf [Latanoprost 0.005% Eye Drop] 1 drop EACH EYE QHS 05/22/18 Lisinopril/Hydrochlorothiazide [Lisinopril-Hctz 20-12.5 mg Tab] 2 each PO DAILY 05/22/18 Doxycycline 100 mg PO BID #8 capsule 05/25/18 Guaifenesin [Mucinex] 1,200 mg PO BID #14 tablet 05/25/18 Ipratropium/Albuterol Sulfate [Duoneb] 3 ml INHALATION Q4H PRN PRN #30 ampul.neb 05/25/18 Nicotine [Nicoderm Cq] 21 mg TRANSDERM. DAILY #20 patch 05/25/18 Oseltamivir Phosphate [Tamiflu] 30 mg PO BID #4 capsule 05/25/18 Prednisone 10 mg PO DAILY #30 tablet 05/25/18 The following prescriptions were given: Ipratropium/Albuterol Sulfate [Duoneb] 3 ml INHALATION Q4H PRN PRN #30 ampul.neb PRN Reason: Shortness Of Breath Nicotine [Nicoderm Cq] 21 mg TRANSDERM. DAILY #20 patch Prednisone 10 mg PO DAILY #30 tablet Doxycycline 100 mg PO BID #8 capsule Guaifenesin [Mucinex] 1,200 mg PO BID #14 tablet Oseltamivir Phosphate [Tamiflu] 30 mg PO BID #4 capsule Primary Care Physician: [facility] [Primary Care Provider] - Please follow up with your Primary Care Physician in: in 2 weeks Test Results: Test results from this visit will be discussed in further detail at your follow- up appointment, if applicable. Please Follow Up With: Calos Vega MD When: 1-2 weeks
--- NOTE | 2018-05-25 09:39 | DS.PCM_ITS ---
Discharge Date and Diagnosis Date of Admission: 05/22/18 Date of Discharge: 05/25/18 - Secondary Discharge Diagnosis Chronic Problems COPD exacerbation (Chronic) Tobacco abuse (Chronic) Chronic obstructive lung disease (Chronic) Benign essential hypertension (Chronic) Hospital Course and Treatment Summary of Care Provided: [] The patient is a 73 year old M with a significant history of tobacco abuse; essential hypertension; and COPD, not on home oxygen who presented to the emergency department because of persistent shortness of breath at rest which markedly increases with exertion; productive cough consistent with likely COPD exacerbation. 1. COPD exacerbation, most probably from influenza A, subtype H3 changed from injury with underlying advanced COPD: Chest x-ray showed no acute cardiopulmonary process. On bronchodilator, DuoNeb every 4 hourly, IV Solu- Medrol, doxycycline, oxygen and Mucinex. On Tamiflu. Patient improved. Patient does not have hypoxia at rest and even on ambulation. Does not need oxygen. Acute hypoxic respiratory failure, present since admission secondary to COPD exacerbation: Resolved. 2. Hypertension: Blood pressure is controlled. First-degree AV block on EKG with sinus arrhythmia 3. Chronic nicotine use, smoker, 2 packs/day. On nicotine patch. Smoking cessation counseling was done. 4. DVT prophylaxis on Lovenox 5. Mild anxiety/depression: Patient is started on Xanax 0.5 mg 3 times daily as needed and trazodone 50 mg at bedtime as needed yesterday. Discharge medication reconciliation done. Discharge follow-up instructions completed. Discharge process discussed with the patient and all questions were answered to patient's satisfaction. Prescription for Tamiflu, Mucinex, doxycycline and tapering dose of prednisone was given. Patient is advised to follow-up with energy administrator Dr. Vega in 2 weeks. Needs to [facility] in order to further evaluate anxiety/depression and may need SSRI. Total time spent, exact 35 minutes on discharge meds reconciliation, examination, review of imaging and blood test and discussion with the patient on follow-up instructions. Subjective: Shortness of breath and tachypnea has improved. Hypoxia resolved. Patient is a [facility] - Physical Exam General: Alert, Oriented x3, Cooperative HEENT: Atraumatic, PERRLA, EOMI, Normocephalic Neck: Supple, No JVD, Negative Carotid Bruits Lungs: Diminished, Rhonchi Cardiovascular: Regular rate, Regular Rhythm, Normal S1, Normal S2, No murmurs Abdomen: Bowel Sounds Present, Soft, Non Tender, Non-Distended Extremities: No edema, Capillary Refill Less than 3 Seconds Skin: No rashes, No breakdown Musculoskeletal: No Tenderness to Palpation of Joints or Extremities, Arthritic Changes Neurological: Cranial nerves II-XII grossly intact Psych/Mental Status: Normal Affect, Appropriate Vital Signs Temp Pulse Resp BP Pulse Ox 98.5 F 58 L 16 140/59 H 87 05/25/18 08:09 05/25/18 08:09 05/25/18 08:09 05/25/18 08:09 05/25/18 08:32 Oxygen Flow Rate (L/min) [ 0.5 AMBULATION with Oxygen] Oxygen Flow Rate (L/min) 0.5 Oxygen Delivery Method Room Air Weight: 169 lb 3 oz Body Mass Index (BMI) 25.7 Intake and Output for Last 24 Hours 05/23/18 05/24/18 05/25/18 23:59 23:59 23:59 Intake Total 2109 450 / 450 Output Total 500 / 500 Balance 2109 -50 / -50 Microbiology Past 72 Hours 05/22/18 04:55 Respiratory Panel (PCR) - Final Mucosa - Nasopharyngeal Influenza A (Subtype H3) Laboratory Tests Past 24 Hrs 05/25/18 05:50 Sodium 140 Potassium 3.7 Chloride 104 Carbon Dioxide 29.0 Anion Gap 7 BUN 43 H Creatinine 0.92 Estim Creat Clear Calc 67.12 Est GFR (MDRD) Af Amer 103 Est GFR (MDRD) Non-Af 85 BUN/Creatinine Ratio 46.8 H Glucose 169 H Calcium 9.4 Discharge Activity: May Not Drive Weight Bearing Status: Weight bearing as tolerated Call your doctor if you observe: Fever of 101 or Higher, Inability to urinate, Inability to have a bowel movement, Shortness of breath, Dizziness, Swelling in the ankles, Chest pain, Increased palpitations (irregular heartbeat), Calf discomfort Home Medications: Medications to take at Discharge Simvastatin [Zocor] 40 mg PO QHS 08/14/14 Tamsulosin HCl [Flomax] 0.8 mg PO DAILY 08/14/14 Amlodipine [Norvasc] 5 mg PO DAILY 08/15/14 Budesonide/Formoterol 160/4.5 [Symbicort 160/4.5 Mcg Inhaler (SP)] 2 puff INHALATION BID 05/22/18 Latanoprost/Pf [Latanoprost 0.005% Eye Drop] 1 drop EACH EYE QHS 05/22/18 Lisinopril/Hydrochlorothiazide [Lisinopril-Hctz 20-12.5 mg Tab] 2 each PO DAILY 05/22/18 Doxycycline 100 mg PO BID #8 capsule 05/25/18 Guaifenesin [Mucinex] 1,200 mg PO BID #14 tablet 05/25/18 Ipratropium/Albuterol Sulfate [Duoneb] 3 ml INHALATION Q4H PRN PRN #30 ampul.neb 05/25/18 Nicotine [Nicoderm Cq] 21 mg TRANSDERM. DAILY #20 patch 05/25/18 Oseltamivir Phosphate [Tamiflu] 30 mg PO BID #4 capsule 05/25/18 Prednisone 10 mg PO DAILY #30 tablet 05/25/18 Following Prescrptions Were Given to Patient: Ipratropium/Albuterol Sulfate [Duoneb] 3 ml INHALATION Q4H PRN PRN #30 ampul.neb PRN Reason: Shortness Of Breath Nicotine [Nicoderm Cq] 21 mg TRANSDERM. DAILY #20 patch Prednisone 10 mg PO DAILY #30 tablet Doxycycline 100 mg PO BID #8 capsule Guaifenesin [Mucinex] 1,200 mg PO BID #14 tablet Oseltamivir Phosphate [Tamiflu] 30 mg PO BID #4 capsule [facility] - Please follow up with your Primary Care Physician in: in 2 weeks Please Follow Up With: Calos Vega MD When: 1-2 weeks Medical Necessity - Tobacco Use Smoking Status: Current every day smoker Tobacco Use: Cigarettes Meaningful Use Info Meaningful Use Diagnoses (Choose all that apply): None applicable Code Visit Inpatient E&M: 80029 Disch Hosp
[2018-05-25] MEDS: Oseltamivir Phosphate 30 MG Capsule PO (10:04)
[2018-05-25] MEDS: Lisinopril 40 MG Tablet PO (10:04)
[2018-05-25] MEDS: Tamsulosin HCl 0.4 MG Capsule 0.8 MG PO (10:04)
[2018-05-25] MEDS: amLODIPine 5 MG Tablet PO (10:04)
[2018-05-25] MEDS: Doxycycline 100 MG CAPSULE PO (10:04)
[2018-05-25] MEDS: guaiFENesin 1,200 MG Tablet 1200 MG PO (10:04)
[2018-05-25] MEDS: NYSTATIN 500,000 UNIT/5 ML UDC 500000 UNIT PO (10:05)
[2018-05-25] MEDS: Enoxaparin 40 MG/0.4 ML Syringe SC (10:05)
[2018-05-25] MEDS: hydroCHLOROthiazide 25 MG Tablet PO (10:08)
--- NOTE | 2018-05-26 14:04 | CASEMGMT ---
SUSANA VAZQUEZ NOTE: Call received from Samson Piedra @ [facility], inquiring about pt's discharge. She was made aware pt was discharged yesterday 05/25/18 @ 1122. Gene VELAZQUEZ RN CM
--- NOTE | 2018-05-26 14:30 | CASEMGMT ---
SUSANA VAZQUEZ Discharge Follow-Up Phone Call. Cinthia: 12 Strata: 4 Discharge Date: 05/25/18 Adm Dx: COPD Exac Call to pt to inquire about how has been doing since being discharged from the hospital. Pt stated, i'm not doing too bad. States he still has a cough but is using the I.S frequently during the day. Pt stated he cancelled his appt @ the [facility] for 06/01 d/t he is not able to make it that late in the day. He states he now has an appt @ the [facility] on June 10 with PACT team 9 and also with a electrician's assistant the same day. Discussed instructions for appt with Dr Vega, and pt was made that an appt was scheduled for him for 07/08/18 @ 0815 and that he is on a waiting list to get in earlier if they have an opening. Pt provided with Dr Vega's phone number. 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 Pt inquired if he could come in to the hospital to have a walking test done again to see if he qualifies for oxygen. SUSANA VAZQUEZ inquired if he was feeling more SOB or if he felt like he needed oxygen and he stated, no, but I thought I might be able to get it. Informed pt that he did not qualify for it when they tested him here @ [facility] but that if he feels like he is starting to feel more SOB to call the [facility] to make an appt to see the ALUMINUM WELDER there or he could return to [facility] ER if he was SOB and unable to [facility]. Pt states he has no further questions. SUSANA VAZQUEZ thanked pt for choosing [facility]. Gene VELAZQUEZ RN, CM
== END 2018-05-25 11:15 | disposition home or self-care (01) | DRG 193 ==
LOC: ED 05-22 02:44 → MS3 05-22 03:27
PROVIDERS: Admitting Provider Hospitalist; Emergency Provider Emergency Medicine; Visit Provider Internal Medicine
DX: J10.1 Influenza due to other identified influenza virus with other respiratory manifestations (principal); J96.01 Acute respiratory failure with hypoxia; J44.1 Chronic obstructive pulmonary disease with (acute) exacerbation; F17.210 Nicotine dependence, cigarettes, uncomplicated; I44.0 Atrioventricular block, first degree; I10 Essential (primary) hypertension; F41.9 Anxiety disorder, unspecified; F32.9 Major depressive disorder, single episode, unspecified
CPT/HCPCS: 36415; 71046; 80048; 85025; 87633; 93005; 94640; 94667; 94668; 97161; 97165; 99282; A4216

== ENCOUNTER → 2018-10-06 12:06 | Outpatient (CLI) | payer MEDICARE, SELFPAY ==
[2018-10-06 12:03] VITALS: BMI 25.4
--- NOTE | 2018-10-06 12:09 | RAD_ITS ---
STUDY: X-RAY CHEST REASON FOR EXAM: Male, 73 years old. Right posterior chest pain. History of recent pneumonia. TECHNIQUE: PA and lateral views of the chest. COMPARISON: Comparison is made with prior examination dated May 22, 2018. FINDINGS: Stable pleural parenchymal changes at the left lung base with blunting of the left costophrenic angle. Mild increased markings in the right lung base. There is no demonstrated pleural abnormality. There is borderline cardiomegaly. Normal mediastinum and lori. Normal visualized pulmonary arteries. There is atherosclerotic calcification of the aortic arch with tortuosity. There are diffuse degenerative changes of the visualized thoracic spine. Healed right lower rib fractures. There is no demonstrated abnormality of the visualized soft tissue structures of the upper abdomen. RAD/Chest PA and Lateral IMPRESSION: Stable examination. Electronically Signed: Mateo Amador, at 12:44 EDT , Service support ,
== END ==
PROVIDERS: Referring Provider Physician Assistant Surgical; Visit Provider Physician Assistant Surgical
DX: J44.1 Chronic obstructive pulmonary disease with (acute) exacerbation (principal); R07.81 Pleurodynia
CPT/HCPCS: 71046

== ENCOUNTER 2019-05-25 13:49 | Emergency (ER) | payer MEDICARE, OTHER, SELFPAY ==
[2018-10-06 12:03] VITALS: BMI 25.4
[2019-05-25 13:50] VITALS: BP 142/78; PULSE 110; RESP 24; TEMP 36.9; O2SAT 97; BMI 25.8
[2019-05-25 14:05] VITALS: BP 125/75; PULSE 110; RESP 23; O2SAT 95
--- NOTE | 2019-05-25 14:11 | RAD_ITS ---
STUDY: X-RAY CHEST REASON FOR EXAM: Male, 74 years old. And quot; I NEED AN ALBUTEROL TREATMENT and quot;, COMPLAINS OF DYSPNEA, HX OF COPD TECHNIQUE: AP and lateral views of the chest. COMPARISON: Comparison is made with prior study dated October 06, 2018. FINDINGS: Hyperinflation. Stable lingular scarring with blunting of the left costophrenic angle. There is borderline cardiomegaly. Normal mediastinum and lori. Normal visualized pulmonary arteries. There is atherosclerotic calcification of the aortic arch with tortuosity. There are diffuse degenerative changes of the visualized thoracic spine. Normal visualized ribs, clavicles, and shoulders. There is no demonstrated abnormality of the visualized soft tissue structures of the upper abdomen. RAD/Chest 1 View (Portable) IMPRESSION: Stable pleural parenchymal changes at the left lung base. Electronically Signed: Mateo Amador, at 14:57 EDT , Service support ,
--- NOTE | 2019-05-25 14:12 | ED.DCSUM_ITS ---
History of Present Illness Chief Complaint: Shortness of Breath Informant: Patient Onset: Today Narrative: Worsening shortness of breath for last couple hours. States mild productive cough with phlegm. No fevers. No chest pain. No abdominal pain no nausea vomiting or diarrhea. No myalgias. Tobacco history. He is on Combivent for which he used prior to arrival which helps with wheezing. He is also on Symbicort. He states I want nebulizer treatment and to go home. Denies history of diabetes. Prior similar symptoms: Yes Past Medical History - Allergies and Home Meds Allergies/Adverse Reactions: Allergies No Known Allergies Allergy (Verified 05/25/19 13:52) Primary Care Physician: [place] [Primary Care Provider] - Surgical History: no surgical history Lives: - - COPD, hypertension Smoking Status: Current every day smoker - Family History Maternal Family History: Reports: - - Denies any maternal family history. Paternal Family History: Reports: - - Denies any paternal family history. Review of Systems General: Denies: Chills, Fever, Sweats Eyes: Denies: Visual changes - bilaterally, Diplopia ENT: Denies: Rhinorrhea, Sore throat Cardiovascular: Denies: Chest pain, Palpitations Respiratory: Reports: Dyspnea, Cough. Denies: Dyspnea on exertion Gastrointestinal: Denies: Abdominal pain, Nausea, Vomiting, Diarrhea, Melena, Hematochezia Genitourinary: Denies: Dysuria, Hematuria, Frequency Musculoskeletal: Denies: Back pain, Extremity Pain Skin: Denies: Rash, Wounds Neurological: Denies: Headache, Weakness, Numbness Physical Exam Vital Signs/Narrative: Vital Signs Temp Pulse Resp BP Pulse Ox 05/25/19 14:05 110 H 23 H 125/75 H 95 05/25/19 13:50 98.5 F 110 H 24 H 142/78 H 97 Inital Vital Signs reviewed: Yes General: Well nourished, Well developed, No Acute Distress Head: Normocephalic, Atraumatic Eyes: Perrl, EOMI ENT: Moist mucous membranes Neck: Supple, Nontender Cardiovascular: Regular rhythm, No murmurs, Tachycardia, - - Heart rate 106 on the monitor. Respiratory: No distress, Chest nontender, Decreased Air Movement Abdomen: Soft, Nontender, Nondistended, Normal bowel sounds Back: Nontender, Normal Inspection Extremities: Nontender, No edema Skin: Normal color, No rash Neurological: Alert, Oriented x3, Cranial nerves II-XII grossly intact, Normal Strength, Normal Sensation Psychological: Normal affect, Normal Mood Diagnostic/Tx/Re-eval Patient was not hypoxic, nontoxic, slight tachycardia. Patient started on st eroids, Zithromax started in treatment according to Gold's criteria. Aerosol treatment given. Shortly afterwards patient told respiratory he is anxious to leave. Chest x-ray reviewed by myself 1 view does not show any acute process. He is placed on antibiotics that would cover for any potential infiltrate findings. He has his Combivent to use. He will be given 4 days of steroids along with finishing his Zithromax. Due to new onset shortness of breath and cough, Covid information sent home with patient. Signs and symptoms discussed to return. ED Disposition - Plan for ED Patient: Disposition: Home or Assisted Living Diagnosis: COPD exacerbation Instructions: Copd Flare Prescriptions: predniSONE tablet 60 mg PO DAILY #12 tab Transmission Status: Pending to [facility] Azithromycin [Zithromax] 250 mg PO DAILY #4 tab Transmission Status: Pending to [facility] [[facility] - 3-5 Days if not improving
[2019-05-25] MEDS: Albuterol 2.5 MG/3 ML VIAL.NEB. INHALATION (14:29)
[2019-05-25 14:30] VITALS: PULSE 99; RESP 18
[2019-05-25 14:55] VITALS: BP 101/78; PULSE 116; RESP 18; O2SAT 96
[2019-05-25] MEDS: predniSONE 20 MG Tablet 60 MG PO (14:55)
[2019-05-25] MEDS: Azithromycin 250 MG Tablet 500 MG PO (14:55)
== END 2019-05-25 14:57 | disposition home or self-care (01) ==
LOC: ED 14:57
PROVIDERS: Emergency Provider Emergency Medicine
DX: J44.1 Chronic obstructive pulmonary disease with (acute) exacerbation (principal); I10 Essential (primary) hypertension; F17.200 Nicotine dependence, unspecified, uncomplicated
CPT/HCPCS: 71045; 94640; 99283

== ENCOUNTER 2019-11-22 06:12 | Emergency (ER) | payer OTHER, MEDICARE, SELFPAY ==
[2019-11-22 06:13] VITALS: BP 151/92; PULSE 75; RESP 16; TEMP 36.3; O2SAT 97; BMI 27.5
[2019-11-22 06:20] VITALS: O2SAT 98
--- NOTE | 2019-11-22 06:20 | RAD_ITS ---
STUDY: X-RAY CHEST REASON FOR EXAM: Male, 74 years old. SOB TECHNIQUE: PA and lateral views of the chest. COMPARISON: Comparison is made with prior study of 05/25/2019. FINDINGS: EKG electrodes are seen. Hyperinflation. Stable mild increased linear markings at the lung bases suggestive of scarring. There is no demonstrated pleural abnormality. Normal size heart. Normal mediastinum and lori. Normal visualized pulmonary arteries. There is atherosclerotic calcification of the aortic arch with tortuosity. There are diffuse degenerative changes of the visualized thoracic spine. Normal visualized ribs, clavicles, and shoulders. There is no demonstrated abnormality of the visualized soft tissue structures of the upper abdomen. RAD/Chest PA and Lateral IMPRESSION: Hyperinflation. Stable scarring at the lung bases. Electronically Signed: Mateo Amador, at 8:03 EDT , Service support ,
--- NOTE | 2019-11-22 06:20 | EKG12_ITS ---
Test Reason : SOB Blood Pressure : / mmHG Vent. Rate : 060 BPM Atrial Rate : 060 BPM P-R Int : 280 ms QRS Dur : 076 ms QT Int : 438 ms P-R-T Axes : 070 047 037 degrees QTc Int : 438 ms Sinus rhythm with 1st degree A-V block with Premature supraventricular complexes Low voltage QRS (Limb Leads) Confirmed by MARTA BARRIOS, ION ([id number]), photographic editor CATHERINE HORVATH ([id number]) on 11/24/2019 12:38:39 PM Referred By: MR Confirmed By:ION LOZANO MD
--- NOTE | 2019-11-22 06:24 | ED.DCSUM_ITS ---
History of Present Illness Chief Complaint: Shortness of Breath Informant: Patient Narrative: Patient presenting for evaluation secondary to shortness of breath. Patient has a underlying history of emphysema. Patient tells me the he had a relatively slow noted sooner shortness of breath tonight. He states that it is associated with some dyspnea on exertion. He denies any chest pain. He denies any fevers. Denies any cough. Patient denies any recent infectious symptoms such as nausea vomiting or diarrhea. Patient states that this does not have any sort of relieving factors, but states that in the past it has gotten better with an albuterol bath. He denies any recent travel or surgery. He denies any recent hospital admissions, antibiotic use or steroid use. Review of systems otherwise negative. Past Medical History - Allergies and Home Meds Allergies/Adverse Reactions: Allergies No Known Allergies Allergy (Verified 05/25/19 13:52) Primary Care Physician: [place] [Primary Care Provider] - 3-5 Days Prior records reviewed: Yes Past Medical History: - - COPD, hypertension, hyperlipidemia Surgical History: no surgical history Smoking Status: Current every day smoker Drugs: None - Family History Maternal Family History: Reports: - - Denies any maternal family history. Paternal Family History: Reports: - - Denies any paternal family history. Review of Systems All systems negative except as indicated General: Denies: Chills, Fever, Sweats Eyes: Denies: Visual changes - bilaterally, Diplopia ENT: Denies: Rhinorrhea, Sore throat Cardiovascular: Denies: Chest pain, Palpitations Respiratory: Reports: Dyspnea Gastrointestinal: Denies: Abdominal pain, Nausea, Vomiting, Diarrhea, Melena, Hematochezia Genitourinary: Denies: Dysuria, Hematuria, Frequency Musculoskeletal: Denies: Back pain, Extremity Pain Skin: Denies: Rash, Wounds Neurological: Denies: Headache, Weakness, Numbness Physical Exam Vital Signs/Narrative: Vital Signs Temp Pulse Resp BP Pulse Ox 11/22/19 06:13 97.3 F L 75 16 151/92 H 97 Inital Vital Signs reviewed: Yes General: Well nourished, Well developed, No Acute Distress Head: Normocephalic, Atraumatic Eyes: Perrl, EOMI ENT: Moist mucous membranes, No rhinorrhea Neck: Supple, Nontender Cardiovascular: Regular rate, Regular rhythm, No murmurs, - - 2+ radial pulses bilaterally symmetric Respiratory: Chest nontender, Wheezing - Minimal scattered, - - Patient is able to speak in about 8-10 word sentences and does not seem extremely dyspneic. Prolonged expiratory phase is noted. Poor air movement is noted throughout the lung laird Abdomen: Soft, Nontender, Normal bowel sounds, - - Minimal distention but not overly tympanitic, nontender Back: Nontender, Normal Inspection Extremities: Nontender, No edema Skin: Normal color, No rash Neurological: Alert, Oriented x3, Cranial nerves II-XII grossly intact, Normal Strength, Normal Sensation Psychological: Normal affect, Normal Mood Diagnostic/Tx/Re-eval Laboratory Data 11/22/19 11/22/19 06:25 06:25 WBC 8.2 RBC 4.79 Hgb 16.1 Hct 46.3 MCV 96.7 H MCH 33.6 H MCHC 34.8 RDW Std Deviation 49.1 H RDW Coeff of Tanja 13.7 Plt Count 270 MPV 12.0 Immature Gran % (Auto) 0.200 Neut % (Auto) 61.0 Lymph % (Auto) 28.5 Greene % (Auto) 9.0 Eos % (Auto) 1.1 Baso % (Auto) 0.2 Absolute Neuts (auto) 5.0 Absolute Lymphs (auto) 2.34 Nucleated RBC % 0 Sodium 141 Potassium 3.4 L Chloride 105 Carbon Dioxide 31.0 Anion Gap 5 BUN 11 Creatinine 1.09 Estim Creat Clear Calc 55.78 Est GFR (MDRD) Af Amer 85 Est GFR (MDRD) Non-Af 70 BUN/Creatinine Ratio 10.1 Glucose 119 H Calcium 8.9 Troponin I < 0.015 - EKG Initial EKG Interpretation: - - Sinus rhythm at 60 with a first-degree AV block MN interval was 280. Isoelectric ST segments. Normal T waves. Occasional PVCs are noted. No significant changes from prior EKG in May 2018. - Medical Decision Making Patient presented secondary to shortness of breath. Patient was evaluated with an EKG which is found to be unremarkable and unchanged from prior. CBC chemistr y and troponin unremarkable. Patient was given DuoNeb and albuterol breathing treatments as well as prednisone. Repeat evaluation showed symptomatic improvement. PA and lateral chest x-ray by my personal review shows a questionable right lower lobe infiltrate at. Patient is nontoxic, has reassuring vital signs, and I believe is appropriate for outpatient treatment. Patient will be given azithromycin Z-Garrison as well as a burst prednisone. [facility] He is encouraged to keep that. Patient was discharged in stable condition. ED Disposition - Plan for ED Patient: Disposition: Home or Assisted Living Diagnosis: COPD exacerbation Instructions: ED COPD Flare Prescriptions: Prednisone [Deltasone] 60 mg PO DAILY #15 tab Prescription Printed Azithromycin [Zithromax Z-Garrison] 250 mg PO UD #1 box Prescription Printed [facility]errals[facility] [Primary [facility] - 5-7 Days
[2019-11-22] MEDS: predniSONE 20 MG Tablet 60 MG PO (06:31)
[2019-11-22 06:33] LABS: Absolute Lymphocyte Count 2.34 X10^3/uL (0.83-4.51); Basophil# 0.02 X10^3/uL; Basophil% 0.2 % (0-1); Eosinophil# 0.09 X10^3/uL; Eosinophils% 1.1 % (0-5); Hematocrit 46.3 % (40-54); Hemoglobin 16.1 g/dL (13.0-16.5); Lymphocyte # 2.34 X10^3/ul (4.0); Lymphocyte % 28.5 % (19-41); Mean Corp Hgb Conc 34.8 g/dL (32-36); Mean Corpuscular Hgb 33.6 pg (27.0-32.0); Mean Corpuscular Volume 96.7 fL (80-94); Monocyte# 0.74 X10^3/uL; NRBC Flagged by Analyzer 0 % (0-5); Neutrophil # 4.99 X10^3/uL (2.7-7.7); Platelet Count 270 K/mm3 (150-450); RBC Distribution Width CV 13.7 % (11.6-14.6); RBC Distribution Width SD 49.1 fl (35.1-43.9); Red Blood Count 4.79 M/mm3 (4.6-6.2); White Blood Count 8.2 K/mm3 (4.4-11.0)
[2019-11-22] MEDS: Ipratropium/Albuterol Sulfate 3 ML AMPUL.NEB INHALATION (06:45)
[2019-11-22] MEDS: Albuterol 2.5 MG/3 ML VIAL.NEB. INHALATION ×3 (06:45)
[2019-11-22 06:46] VITALS: PULSE 67; RESP 16; O2SAT 97
[2019-11-22 06:51] LABS: Anion Gap 5 (5-15); BUN 11 mg/dL (7-18); BUN/Creat Ratio 10.1 RATIO (10-20); Calcium,Total 8.9 mg/dL (8.5-10.1); Chloride 105 mmol/L (98-107); Creatinine, Serum 1.09 mg/dL (0.70-1.30); EST Glomerular Filtration Rate 70 mL/min (>60); Est Glom Filt Rate - Afr Amer 85 mL/min (>60); Estimated Creatinine Clearance 55.78 ml/min; Glucose 119 mg/dL (74-106); Potassium 3.4 mmol/L (3.5-5.1); Sodium Level 141 mmol/L (136-145)
[2019-11-22 07:57] VITALS: BP 142/76; PULSE 61; RESP 18; O2SAT 94
== END 2019-11-22 07:58 | disposition home or self-care (01) ==
PROVIDERS: Emergency Provider Emergency Medicine
DX: J44.1 Chronic obstructive pulmonary disease with (acute) exacerbation (principal); I44.0 Atrioventricular block, first degree; F17.200 Nicotine dependence, unspecified, uncomplicated; I10 Essential (primary) hypertension; E78.5 Hyperlipidemia, unspecified
CPT/HCPCS: 71046; 80048; 84484; 85025; 93005; 94640; 99251; 99285; G0463

== ENCOUNTER 2021-01-04 13:19 | Emergency (ER) | payer OTHER, MEDICARE, SELFPAY ==
[2021-01-04 13:19] VITALS: BP 141/80; PULSE 84; RESP 16; TEMP 36.9; O2SAT 97; BMI 24.7
--- NOTE | 2021-01-04 13:42 | ED.RN ---
PT LEFT WITHOUT BEING SEEN. REGISTRATION AWARE
== END 2021-01-04 13:42 ==
LOC: ED 13:50
DX: R06.02 Shortness of breath (principal)

== ENCOUNTER 2021-02-01 12:58 | Emergency (ER) | payer OTHER, SELFPAY ==
[2021-02-01 12:58] VITALS: BP 118/64; PULSE 63; RESP 20; TEMP 36.4; O2SAT 98; BMI 25.5
--- NOTE | 2021-02-01 14:18 | NURSING ---
ELEANOR, FROM [facility] , CALLED TO SEE IF PATIENT WAS HERE
[2021-02-01 14:36] VITALS: BP 137/74; PULSE 68; RESP 14; O2SAT 97
[2021-02-01 14:37] VITALS: O2SAT 97
--- NOTE | 2021-02-01 15:04 | NURSING ---
GRETA LEIGH, CALLED. WAS CHECKING UP ON PATIENT STATUS
[2021-02-01 15:48] VITALS: PULSE 70; RESP 18; O2SAT 97
[2021-02-01] MEDS: Ipratropium/Albuterol Sulfate 3 ML AMPUL.NEB INHALATION (15:48)
--- NOTE | 2021-02-01 15:48 | EDS_ITS ---
HPI History of Present Illness Chief Complaint: Shortness of Breath Onset/Context/Timing Onset: Today Context: gradual Timing: Continuous Worsened by: Nothing Relieved by: Albuterol Associated Symptoms Negative for cough, rhinorrhea, ear pain, fever, sore throat, chills, clear sputum, white sputum, yellow sputum or green sputum Narrative Narrative: Patient presents with shortness of breath that became worse today. Patient states it is gradually gotten worse. Patient states it has been con stant. Patient denies any cough. Patient denies any sore throat. Patient denies any fevers or chills. Patient denies any chest pain. Patient states he has a history of COPD and this feels similar to prior flareups of his COPD. Patient states that I just need a breathing treatment. Patient denies any exposures to COVID-19. Patient states he has been vaccinated against COVID-19 and has also received a booster. [facility] Medical History Benign essential hypertension Chronic obstructive lung disease COPD exacerbation Hypertension Tobacco abuse Home Medications simvastatin 40 mg PO QHS 08/14/14 [History Last Taken Unknown] tamsulosin 0.8 mg PO DAILY 08/14/14 [History Last Taken Unknown] amlodipine 5 mg PO DAILY 08/15/14 [History Last Taken Unknown] budesonide-formoterol 2 puff INHALATION BID 05/22/18 [History Last Taken Unknown] latanoprost (PF) 1 drp EACH EYE QHS 05/22/18 [History Last Taken Unknown] lisinopril-hydrochlorothiazide 2 tab PO DAILY 05/22/18 [History Last Taken Unknown] ipratropium-albuterol 3 ml INHALATION Q4H PRN PRN #30 ampul.neb 05/25/18 [Rx Last Taken Unknown] azithromycin 250 mg PO UD #1 box 11/22/19 [Rx Last Taken Unknown] prednisone 60 mg PO DAILY #15 tab 11/22/19 [Rx Last Taken Unknown] Allergy/AdvReac Type Severity Reaction Status Date / Time No Known Allergies Allergy Verified 02/01/21 13:00 Social History Smoking Status: Current every day smoker tobacco type: cigarettes Tobacco: How many years used: 60 second hand exposure: Yes alcohol intake: never substance use type: does not use ROS ROS ED Constitutional Constitutional ED: Denies chills or fever(s) Eyes Eyes: Denies blurry vision or change in vision ENT ENT ED: Denies rhinorrhea or sore throat Cardiovascular Cardiovascular: Denies chest pain or palpitations Respiratory/Chest Respiratory/Chest: Reports dyspnea; Denies cough Gastrointestinal Gastrointestinal: Denies nausea or vomiting Genitourinary Genitourinary ED: Reports urinary frequency; Denies dysuria or hematuria Musculoskeletal Musculoskeletal: Denies back pain or neck pain Integumentary Denies abscess or rash Neurologic Neurologic: Denies headache(s) or weakness Allergic/Immunologic Allergic/Immunologic ED: Denies mouth swelling or urticaria EXAM Physical Exam Const Vital Signs: 02/01/21 12:58 02/01/21 14:36 02/01/21 14:37 Temperature 97.6 F L Temperature Source Temporal Pulse Rate 63 68 Respiratory Rate 20 H 14 Respiratory Effort Non-Labored Short of Breath Respiratory Depth Normal Respiratory Pattern Normal Blood Pressure 118/64 137/74 H Blood Pressure Mean 82 95 Pulse Ox 98 97 Oxygen Delivery Method Room Air Room Air Room Air Positive well nourished and well developed General Appearance ED: well developed HEENT Reports moist mucous membranes Neck supple and no JVD Resp normal respiratory effort Auscultation: wheezes expiratory wheezes (Mild) and throughout Cardio regular rate and regular rhythm GI non-tender and non-distended Palpation: soft Neuro oriented x3, CN's II-XII intact bilaterally and no sensory deficits noted Sensorium / Orientation: alert Motor Exam: strength 5/5 throughout Psych mental status grossly normal MDM MDM MDM Narrative Medical decision making narrative: Patient was given a DuoNeb aerosol here. Patient felt better on reevaluation. Patient wants to go home. Patient was instructed to follow-up with his primary care physician in 5 to 7 days. Patient understood and was agreeable with the plan. All questions were answered. Discharge Plan Triage Chief Complaint: Shortness of Breath ED Provider: [facility] Dx/Rx/DC Orders Clinical Impression: COPD exacerbation Instructions: ED COPD Flare Prescriptions: No Action simvastatin 40 MG tablet 40 mg PO QHS RF: 0 tamsulosin 0.4 MG capsule 0.8 mg PO DAILY RF: 0 amlodipine 2.5 MG tablet 5 mg PO DAILY RF: 0 budesonide-formoterol 1 INHALER inhaler 2 puff inhalation BID RF: 0 lisinopril-hydrochlorothiazide 1 EACH tablet 2 tab PO DAILY RF: 0 latanoprost (PF) 7.5 ML drops 1 drp EACH EYE QHS RF: 0 ipratropium-albuterol 3 ML solution for nebulization 3 ml inhalation Q4H PRN PRN (Reason: Shortness Of Breath) Qty: 30 RF: 0 prednisone 20 MG tablet 60 mg PO DAILY Qty: 15 RF: 0 azithromycin 250 MG tablet 250 mg PO UD Qty: 1 RF: 0 [facility]errals[facility] [Primary Care Provider] - 3-5 Days Disposition Disposition: Home, Self Care
[2021-02-01 16:05] VITALS: BP 146/87; O2SAT 96
== END 2021-02-01 16:05 | disposition home or self-care (01) ==
PROVIDERS: Emergency Provider Emergency Medicine
DX: J44.1 Chronic obstructive pulmonary disease with (acute) exacerbation (principal); F17.210 Nicotine dependence, cigarettes, uncomplicated; I10 Essential (primary) hypertension; Z79.52 Long term (current) use of systemic steroids
CPT/HCPCS: 94640; 99282

== ENCOUNTER 2021-04-04 06:21 | Emergency (ER) | payer OTHER, SELFPAY ==
[2021-04-04 06:21] VITALS: PULSE 69; RESP 26; TEMP 36.4; O2SAT 93; BMI 25.3
[2021-04-04 06:26] VITALS: BP 154/74; PULSE 69; PULSE 72; RESP 15; RESP 18; TEMP 36.4; O2SAT 92; O2SAT 96
--- NOTE | 2021-04-04 06:30 | EKG12_ITS ---
Test Reason : SOB Blood Pressure : / mmHG Vent. Rate : 059 BPM Atrial Rate : 059 BPM P-R Int : 330 ms QRS Dur : 074 ms QT Int : 444 ms P-R-T Axes : 071 058 039 degrees QTc Int : 439 ms Sinus bradycardia with 1st degree A-V block Anterior infarct , age undetermined Abnormal ECG Confirmed by ZI BARRIOS, SRIRAM ([id number]), copy editor CATHERINE HORVATH ([id number]) on 04/05/2021 11:07:34 AM Referred By: DARREL Confirmed By:XAVIER PINON MD
--- NOTE | 2021-04-04 06:32 | EDS_ITS ---
HPI History of Present Illness Chief Complaint: Shortness of Breath Informant: patient Onset/Context/Timing Onset: Yesterday Context: gradual Timing: Continuous Quality: Positive for Wheezing Current Severity: Mild Maximum Severity: Moderate Worsened by: Exertion and Coughing Relieved by: Rest, Oxygen and Albuterol Associated Symptoms cough; Negative for rhinorrhea, fever, sore throat, subjective, chills, sweats, clear sputum, white sputum, yellow sputum or green sputum Chest Pain: Positive for None Narrative Narrative: 75-year-old male history of COPD and hypertension. Not on home oxygen. Patient still smokes about 2 packs of cigarettes a day. States he started having shortness of breath about 6 PM yesterday. Denies any chest pain. No fever or chills. States he has a nonproductive cough. He cannot point to bring up the sputum. Denies any hemoptysis. He has had prior episodes like this before. He currently is on no antibiotics nor any steroids. He has never had a DVT or PE. No recent travel, surgery or immobilization. No leg pain or swelling. He is vaccinated against Covid with 2 Pfizer vaccines and a booster. PE Risk Factors: Negative for Cancer, Prior DVT or PE, Recent immobilization, Recent surgery and Recent travel Prior similar symptoms: Yes Recent Illness/Hospitalization: No PFSH PFS Medical History Benign essential hypertension Chronic obstructive lung disease COPD exacerbation Hypertension Tobacco abuse Home Medications simvastatin 40 mg PO QHS 08/14/14 [History Last Taken Unknown] tamsulosin 0.8 mg PO DAILY 08/14/14 [History Last Taken Unknown] amlodipine 5 mg PO DAILY 08/15/14 [History Last Taken Unknown] budesonide-formoterol 2 puff INHALATION BID 05/22/18 [History Last Taken Unknown] latanoprost (PF) 1 drp EACH EYE QHS 05/22/18 [History Last Taken Unknown] lisinopril-hydrochlorothiazide 2 tab PO DAILY 05/22/18 [History Last Taken Unknown] ipratropium-albuterol 3 ml INHALATION Q4H PRN PRN #30 ampul.neb 05/25/18 [Rx Last Taken Unknown] azithromycin 250 mg PO UD #1 box 11/22/19 [Rx Last Taken Unknown] prednisone 60 mg PO DAILY #15 tab 11/22/19 [Rx Last Taken Unknown] azithromycin [Zithromax] 250 mg PO DAILY 4 Days #4 tab 04/04/21 [Rx Last Taken Unknown] prednisone 40 mg PO DAILY 7 Days #14 tab 04/04/21 [Rx Last Taken Unknown] Allergy/AdvReac Type Severity Reaction Status Date / Time No Known Allergies Allergy Verified 02/01/21 13:00 Social History Smoking Status: Current every day smoker tobacco type: cigarettes Tobacco: How many years used: 60 second hand exposure: Yes alcohol intake: never substance use type: does not use ROS ROS ED ROS Narrative Nonproductive cough. Shortness of breath. Denies chest pain. Denies fever. Review of Systems ROS Unobtainable: Denies due to encephalopathy Constitutional Constitutional ED: Denies chills, fever(s) or sweats Eyes Eyes: Denies change in vision ENT ENT ED: Denies ear pain, rhinorrhea or sore throat Cardiovascular Cardiovascular: Denies chest pain or palpitations Respiratory/Chest Respiratory/Chest: Reports cough and dyspnea; Denies sputum Gastrointestinal Gastrointestinal: Denies abdominal pain, diarrhea, nausea or vomiting Genitourinary Genitourinary ED: Denies dysuria Musculoskeletal Musculoskeletal: Denies myalgias Integumentary Denies rash Neurologic Neurologic: Denies headache(s) Psychiatric Psychiatric: Denies depression Endocrine Endocrinology: Denies polyuria Hematologic/Lymphatic Hematologic/Lymphatic: Denies easy bruising Allergic/Immunologic Allergic/Immunologic ED: Denies urticaria EXAM Physical Exam Narrative Exam Narrative: 75-year-old male vital signs are stable. Per squad his pulse ox was 90% on room air at home. Here he is 96% on 2 L and not hypoxic. He is in no severe distress. He is not tripoding. H EENT exam is unremarkable. Moist mucous membranes. Poor dentition. Neck nontender. No JVD. No lymphadenopathy. Lungs coarse breath sounds. Prolonged expiratory phase. Rhonchi. Few scattered expiratory wheezes. Equal symmetrical. Heart regular rhythm rate about 72 no murmur. Chest wall nontender. No crepitus. No subcu air. Abdomen soft nontender normal bowel sounds no peritoneal signs. Moving all 4 extremities. Calves are nontender without edema or cords. Neurologically is awake and alert with no focal motor deficits. Back nontender. Const Vital Signs: 04/04/21 06:21 04/04/21 06:26 04/04/21 06:27 Temperature 97.6 F L 97.6 F L Temperature Source Temporal Temporal Pulse Rate 69 69 Respiratory Rate 26 H 15 Respiratory Effort Short of Breath Respiratory Pattern Blood Pressure 154/74 H Blood Pressure Mean 100 Pulse Ox 93 96 Oxygen Delivery Method Room Air Nasal Cannula Oxygen Flow Rate (L/min) 2 04/04/21 06:51 Temperature Temperature Source Pulse Rate 70 Respiratory Rate 22 H Respiratory Effort Respiratory Pattern Tachypnea Blood Pressure Blood Pressure Mean Pulse Ox Oxygen Delivery Method Oxygen Flow Rate (L/min) Positive well nourished and well developed; Negative for obese, cachectic, contractures or unkempt General Appearance ED: well developed and NAD; Negative for unkempt, cachectic, contractures or pallor Nutritional Appearance: Negative for cachectic or obese HEENT Reports moist mucous membranes atraumatic Eyes PERRL and EOMs intact bilaterally General Eye ED: Negative for scleral icterus Neck no lymphadenopathy, supple, no meningeal signs and no JVD General: Negative for tenderness Resp normal respiratory effort and No clear to auscultation bilaterally Resp Narrative: 29 expiratory phase. Effort and Inspection: Negative for pain with movement Auscultation: rhonchi and wheezes; Negative for rales or diminished lung sounds Cardio regular rate, regular rhythm, S1 normal heart sound, S2 normal heart sound and no murmurs GI non-tender, non-distended and no masses Auscultation: normoactive bowel sounds Palpation: soft; Negative for tender, guarding or rebound tenderness present Back/Spine no CVA tenderness and normal to inspection General Back: Negative for CVA tenderness or tenderness Extremity normal to inspection General Extremety ED: Negative for edema or tenderness General Extremity: Negative for edema Neuro oriented x3 Sensorium / Orientation: alert, oriented to person, oriented to place and oriented to time; Negative for orientation impaired, confused, lethargic or st uporous Motor Exam: strength 5/5 throughout Psych mental status grossly normal Appearance: Negative for unkempt Attitude: No agitated Mood & Affect: Negative for depressed, anxious or tearful Thought Process: normal thought process Skin no wounds General Skin Exam: Negative for jaundice or pallor Lesions: no lesions Rashes: no rashes MDM MDM MDM Narrative Medical decision making narrative: 75-year-old male with COPD not on home O2. Presents with nonproductive cough with shortness of breath. Clinically I suspect this to be a COPD flare rule out pneumonia or bronchitis. He has no history or risk factors for PE. I do not believe this to be a pneumothorax because he has breath sounds bilaterally. And clinically and only gets a CHF. He also has no cardiac history. Cardiac work-up with oral prednisone and both DuoNeb and albuterol aerosols. Repeat exam patient is doing well at 7:13 AM patient is doing well. He was able to cough up a small amount of sputum its noel in color. He will be placed on antibiotics. Zithromax. Given his first dose here. Also prednisone for the next week. [facility] Return if worse. Patient is comfortable with the plan. Lab Data Attestation: I reviewed the patient's lab results. Lab results narrative: CBC shows a white count of 9. Hemoglobin is 16.8 and hematocrit 47. Chemistry panel normal. Gap of 5 normal BUN and creatinine. Troponin normal at 8. Labs: Laboratory Results - last 24 hr 04/04/21 04/04/21 06:37 06:37 WBC 9.3 RBC 4.81 Hgb 16.8 H Hct 47.5 MCV 98.8 H MCH 34.9 H MCHC 35.4 RDW Std Deviation 50.5 H RDW Coeff of Tanja 13.8 Plt Count 254 MPV 11.2 Immature Gran % (Auto) 0.100 Neut % (Auto) 63.1 Lymph % (Auto) 26.8 Barber % (Auto) 9.5 Eos % (Auto) 0.3 Baso % (Auto) 0.2 Absolute Neuts (auto) 5.9 Absolute Lymphs (auto) 2.50 Nucleated RBC % 0 Sodium 138 Potassium 3.8 Chloride 104 Carbon Dioxide 29.0 Anion Gap 5 BUN 8 Creatinine 0.77 Estim Creat Clear Calc 59.85 Est GFR (MDRD) Af Amer 126 Est GFR (MDRD) Non-Af 104 BUN/Creatinine Ratio 10.4 Glucose 90 Calcium 9.0 Troponin I High Sens 8 Radiography Chest X-Ray - ED: 1 View, Read by ED Physician, Heart, Lungs, Mediastinum, Bony Structures, No Acute Disease and Chronic Changes Diagnostic Testing: Chest x-ray, portable, single view interpreted by myself shows chronic changes. No acute process. Normal cardiac silhouette. No infiltrate. No CHF. No pleural effusions. Rhythm Strip Rhythm Strip: Sinus Rhythm Rate: 59 Ectopy: None EKG Initial EKG: Attestation: I personally reviewed and interpreted this EKG as follows: Interpretation: Sinus Rhythm, No Acute Injury Pattern and Sinus Bradycardia Comments: Sinus bradycardia rate of 59. No acute signs of LA nor ischemia. First-degree AV block with a MN interval with 330. Unchanged from prior EKG from November 2019. Prior EKG tracings: available for review Prior: Unchanged Discharge Plan Triage Chief Complaint: Shortness of Breath ED Provider: Josef Varghese Dx/Rx/DC Orders Clinical Impression: COPD exacerbation, Acute dyspnea Instructions: Acute Bronchitis, ED COPD Flare Prescriptions: New prednisone 20 mg tablet 40 mg PO DAILY 7 Days Qty: 14 RF: 0 azithromycin [Zithromax] 250 mg tablet 250 mg PO DAILY 4 Days Qty: 4 RF: 0 No Action simvastatin 40 MG tablet 40 mg PO QHS RF: 0 tamsulosin 0.4 MG capsule 0.8 mg PO DAILY RF: 0 amlodipine 2.5 MG tablet 5 mg PO DAILY RF: 0 budesonide-formoterol 1 INHALER inhaler 2 puff inhalation BID RF: 0 lisinopril-hydrochlorothiazide 1 EACH tablet 2 tab PO DAILY RF: 0 latanoprost (PF) 7.5 ML drops 1 drp EACH EYE QHS RF: 0 ipratropium-albuterol 3 ML solution for nebulization 3 ml inhalation Q4H PRN PRN (Reason: Shortness Of Breath) Qty: 30 RF: 0 prednisone 20 MG tablet 60 mg PO DAILY Qty: 15 RF: 0 azithromycin 250 MG tablet 250 mg PO UD Qty: 1 RF: 0 Primary Care Provider: [facility] Referrals: [facility] [Primary Care Provider] - 3-5 Days Activity Restrictions/Additional Instructions: Plenty of fluids and rest. Follow-up with your doctors at the [place]. Prednisone daily to decrease inflammation in your lungs and help improve your breathing. Use your inhalers at home as needed. 2 puffs every 2-4 hours as needed. Return if worse. You absolutely, positively need to stop smoking. Disposition Disposition: Home, Self Care
[2021-04-04] MEDS: predniSONE 20 MG Tablet 60 MG PO (06:38)
[2021-04-04 06:46] LABS: Absolute Neutrophil Count 5.9 X10^3/uL (2.0-7.7); Basophil# 0.02 X10^3/uL; Basophil% 0.2 % (0-1); Eosinophil# 0.03 X10^3/uL; Eosinophils% 0.3 % (0-5); Hematocrit 47.5 % (40-54); Hemoglobin 16.8 g/dL (13.0-16.5); Lymphocyte % 26.8 % (19-41); Mean Corp Hgb Conc 35.4 g/dL (32-36); Mean Corpuscular Hgb 34.9 pg (27.0-32.0); Mean Corpuscular Volume 98.8 fL (80-94); Mean Platelet Vol. 11.2 fl (6.2-12.0); Monocyte# 0.89 X10^3/uL; Monocyte% 9.5 % (0-10); NRBC Flagged by Analyzer 0 % (0-5); Neutrophil # 5.88 X10^3/uL (2.7-7.7); Neutrophil % 63.1 % (47-70); Platelet Count 254 K/mm3 (150-450); RBC Distribution Width CV 13.8 % (11.6-14.6); RBC Distribution Width SD 50.5 fl (35.1-43.9); Red Blood Count 4.81 M/mm3 (4.6-6.2); White Blood Count 9.3 K/mm3 (4.4-11.0)
[2021-04-04] MEDS: Ipratropium/Albuterol Sulfate 3 ML AMPUL.NEB INHALATION (06:46)
[2021-04-04] MEDS: Albuterol 2.5 MG/3 ML VIAL.NEB. INHALATION ×2 (06:49→07:30)
[2021-04-04 06:51] VITALS: PULSE 70; RESP 22
[2021-04-04 07:04] LABS: Anion Gap 5 (5-15); BUN 8 mg/dL (7-18); BUN/Creat Ratio 10.4 RATIO (10-20); Chloride 104 mmol/L (98-107); Creatinine, Serum 0.77 mg/dL (0.70-1.30); EST Glomerular Filtration Rate 104 mL/min (>60); Est Glom Filt Rate - Afr Amer 126 mL/min (>60); Estimated Creatinine Clearance 59.85 ml/min; Glucose 90 mg/dL (74-106); Potassium 3.8 mmol/L (3.5-5.1); Sodium Level 138 mmol/L (136-145); Troponin-I HS 8 pg/mL (3.0-78.0)
--- NOTE | 2021-04-04 07:05 | RAD_ITS ---
STUDY: X-RAY CHEST REASON FOR EXAM: Male, 75 years old. Copd flare TECHNIQUE: Single AP portable view of the chest. COMPARISON: November 22, 2019 chest x-ray FINDINGS: Nonspecific hyperinflation of the lungs. There is no demonstrated pleural abnormality. Normal size heart. Normal mediastinum and lori. Normal visualized pulmonary arteries. Normal visualized aortic arch and descending thoracic aorta. There are diffuse degenerative changes of the visualized thoracic spine. -Year-old left lower rib fractures. There is no demonstrated abnormality of the visualized soft tissue structures of the upper abdomen. RAD/Chest 1 View (Portable) IMPRESSION: Stable chest. No visualized acute focal infiltrate. Electronically Signed: Allie Kimball MD at 7:27 EST ,
== END 2021-04-04 23:59 | disposition home or self-care (01) ==
PROVIDERS: Emergency Provider Emergency Medicine; Visit Provider Emergency Medicine
DX: J44.1 Chronic obstructive pulmonary disease with (acute) exacerbation (principal); F17.210 Nicotine dependence, cigarettes, uncomplicated; I10 Essential (primary) hypertension; R06.00 Dyspnea, unspecified
CPT/HCPCS: 71045; 80048; 84484; 85025; 87426; 93005; 94640; 99285

== ENCOUNTER 2021-09-11 01:33 | Emergency (ER) | payer OTHER, SELFPAY ==
[2021-09-11 01:34] VITALS: BP 141/81; RESP 18; TEMP 36.5; O2SAT 92; BMI 23.5
[2021-09-11 01:38] VITALS: O2SAT 92
--- NOTE | 2021-09-11 02:12 | RAD_ITS ---
STUDY: X-RAY CHEST REASON FOR EXAM: Male, 76 years old. dyspnea TECHNIQUE: PA and lateral. COMPARISON: 04/04/2021. FINDINGS: LUNGS: The lungs are hyperinflated. No consolidation. Reticular opacities in the mid to lower lungs likely scarring. No pneumothorax. MEDIASTINUM: Aortic atherosclerotic. CARDIAC SILHOUETTE: Not enlarged. BONES AND SOFT TISSUES: Nonacute bilateral rib fractures. Degenerative changes in the dorsal spine. RAD/Chest PA and Lateral IMPRESSION: Mildly hyperinflated lungs. No infiltrates. Electronically Signed: Ly Shah MD at 3:18 EDT ,
[2021-09-11 02:19] VITALS: PULSE 60; RESP 22; O2SAT 94
[2021-09-11] MEDS: Ipratropium/Albuterol Sulfate 3 ML AMPUL.NEB INHALATION (02:19)
[2021-09-11] MEDS: predniSONE 20 MG Tablet 40 MG PO (02:52)
[2021-09-11 03:24] VITALS: BP 144/80; PULSE 88; RESP 17; TEMP 36.7; O2SAT 95
--- NOTE | 2021-09-11 03:25 | EDS_ITS ---
HPI History of Present Illness Chief Complaint: Shortness of Breath Narrative Narrative: Patient is a 76-year-old male with past medical history of COPD who continues to smoke about 1 pack a day. He states he does not have need for supplemental oxygen at home. He states he has been taking his normal medications as directed but does feel increased shortness of breath at this time. He denies any fevers or chills or chest pain or known sick contacts but with his symptoms presents for evaluation [facility] Medical History Benign essential hypertension Chronic obstructive lung disease COPD exacerbation Hypertension Tobacco abuse Home Medications simvastatin 40 mg tablet 40 mg PO QHS cholesterol 08/14/14 [History Last Taken Unknown] tamsulosin 0.4 mg capsule 0.8 mg PO DAILY prostate 08/14/14 [History Last Taken Unknown] amlodipine 2.5 mg tablet 5 mg PO DAILY bp 08/15/14 [History Last Taken Unknown] budesonide-formoterol HFA 160 mcg-4.5 mcg/actuation aerosol inhaler 2 puff inhalation BID breathing 05/22/18 [History Last Taken Unknown] latanoprost (PF) 0.005 % eye drops 1 drp EACH EYE QHS eye drops 05/22/18 [History Last Taken Unknown] lisinopril 20 mg-hydrochlorothiazide 12.5 mg tablet 2 tab PO DAILY blood pressure 05/22/18 [History Last Taken Unknown] ipratropium 0.5 mg-albuterol 3 mg (2.5 mg base)/3 mL nebulization soln 3 ml inhalation Q4H PRN PRN Shortness Of Breath ##30 05/25/18 [Rx Last Taken Unknown] azithromycin 250 mg tablet 250 mg PO UD ##1 11/22/19 [Rx Last Taken Unknown] prednisone 20 mg tablet 60 mg PO DAILY #15 tabs 11/22/19 [Rx Last Taken Unknown] azithromycin 250 mg tablet (Zithromax) 250 mg PO DAILY 4 days #4 tabs 04/04/21 [Rx Last Taken Unknown] prednisone 20 mg tablet 40 mg PO DAILY 7 days #14 tabs 04/04/21 [Rx Last Taken Unknown] prednisone 20 mg tablet 40 mg PO DAILY 5 days #10 tabs 09/11/21 [Rx Last Taken Unknown] Allergy/AdvReac Type Severity Reaction Status Date / Time No Known Allergies Allergy Verified 09/11/21 01:37 Social History Smoking Status: Current every day smoker tobacco type: cigarettes Tobacco: How many years used: 60 second hand exposure: Yes alcohol intake: never substance use type: does not use ROS ROS ED Constitutional Constitutional ED: Denies chills or fever(s) ENT ENT ED: Denies sore throat Cardiovascular Cardiovascular: Denies chest pain Respiratory/Chest Respiratory/Chest: Reports dyspnea; Denies cough Gastrointestinal Gastrointestinal: Denies abdominal pain, diarrhea, nausea or vomiting Genitourinary Genitourinary ED: Denies dysuria Musculoskeletal Musculoskeletal: Denies myalgias Integumentary Denies rash Neurologic Neurologic: Denies headache(s) Hematologic/Lymphatic Hematologic/Lymphatic: Denies easy bleeding or easy bruising EXAM Physical Exam Const Vital Signs: 09/11/21 01:34 09/11/21 01:38 09/11/21 02:19 Temperature 97.7 F L Temperature Source Temporal Pulse Rate 60 Respiratory Rate 18 22 H Respiratory Effort Short of Breath Respiratory Depth Respiratory Pattern Tachypnea Blood Pressure 141/81 H Blood Pressure Mean 101 Pulse Ox 92 Oxygen Delivery Method Room Air Room Air 09/11/21 02:19 Temperature Temperature Source Pulse Rate Respiratory Rate 22 H Respiratory Effort Normal Short of Breath Respiratory Depth Normal Respiratory Pattern Tachypnea Blood Pressure Blood Pressure Mean Pulse Ox 94 Oxygen Delivery Method Room Air Positive well nourished and well developed General Appearance ED: well developed HEENT Reports moist mucous membranes HEENT Narrative: No tongue or lip swelling no oral lesions no airway edema or compromise Eyes PERRL and EOMs intact bilaterally Neck supple and no JVD Resp normal respiratory effort Resp Narrative: Breast sounds are diminished throughout with diffuse expiratory wheezing but no nasal flaring retractions tachypnea or accessory muscle use Cardio regular rate and regular rhythm Rate: other Other Details: Radial pulses are plus 2 out of 4 bilaterally are equal and symmetric Extremity normal to inspection Extremity Narrative: No asymmetric edema no pitting edema negative Homans' sign bilaterally Neuro oriented x3 and CN's II-XII intact bilaterally Sensorium / Orientation: alert Psych mental status grossly normal Skin no rashes or lesions noted MDM MDM MDM Narrative Medical decision making narrative: Patient presented to the ER satting 92% on room air but otherwise in no acute distress. His history and exam is consistent with a COPD exacerbation. We discussed basic blood work but patient states that he does not feel that is necessary as he has been down this road before and simply would like improvement with his breathing status and a possible x-ray. Patient had an x-ray obtained which showed changes consistent with COPD but no acute infection or pneumothorax. He was given oral steroids and a DuoNeb and on reevaluation reported feeling better and his breath sounds have improved as well. Therefore at this time as he is not requiring supplemental oxygen and is in no acute respiratory distress is otherwise safe for discharge Radiography Diagnostic Testing: Clinical Impression(s) from Imaging Studies Chest X-Ray 09/11/21 02:12 IMPRESSION: Mildly hyperinflated lungs. No infiltrates. Electronically Signed: Ly Shah MD at 3:18 EDT , 2 view chest x-ray as interpreted by the emergency medicine physician reveals hyperinflated lungs consistent with COPD but no infiltrate pneumothorax or pleural effusion Discharge Plan Triage Chief Complaint: Shortness of Breath ED Provider: Jossue Jenkins Dx/Rx/DC Orders Clinical Impression: COPD exacerbation Instructions: COPD: Chronic Coughing Prescriptions: New prednisone 20 mg tablet 40 mg PO DAILY 5 Days Qty: 10 0RF No Action simvastatin 40 MG tablet 40 mg PO QHS tamsulosin 0.4 MG capsule 0.8 mg PO DAILY amlodipine 2.5 MG tablet 5 mg PO DAILY Label Comments: PT UNSURE OF DOSE budesonide-formoterol 1 INHALER inhaler 2 puff inhalation BID lisinopril-hydrochlorothiazide 1 EACH tablet 2 tab PO DAILY latanoprost (PF) 7.5 ML drops 1 drp EACH EYE QHS ipratropium-albuterol 3 ML solution for nebulization 3 ml inhalation Q4H PRN PRN (Reason: Shortness Of Breath) Qty: 30 0RF prednisone 20 MG tablet 60 mg PO DAILY Qty: 15 0RF Rx Instructions: With food azithromycin 250 MG tablet 250 mg PO UD Qty: 1 0RF Rx Instructions: TAKE 2 TABLETS 1ST DAY THEN 1 TABLET DAILY FOR NEXT 4 DAYS. prednisone 20 mg tablet 40 mg PO DAILY 7 Days Qty: 14 0RF azithromycin [Zithromax] 250 mg tablet 250 mg PO DAILY 4 Days Qty: 4 0RF Rx Instructions: start on day 2 of therapy [facility] [facility] [Primary [facility] Provider] - Activity Restrictions/Additional Instructions: Continue all of your previous medications as directed and add the steroid for the next 5 days to control inflammation. If you have any further concerns please return to the ER for repeat evaluation Disposition Disposition: Home, Self Care
== END 2021-09-11 04:02 | disposition home or self-care (01) ==
PROVIDERS: Emergency Provider Emergency Medicine; Visit Provider Emergency Medicine
DX: J44.1 Chronic obstructive pulmonary disease with (acute) exacerbation (principal); I10 Essential (primary) hypertension; F17.210 Nicotine dependence, cigarettes, uncomplicated
CPT/HCPCS: 71046; 94640; 99251; 99282; G0463

== ENCOUNTER 2023-05-09 10:26 | Emergency (ER) | payer OTHER, SELFPAY ==
[2023-05-09] VITALS (8 sets, daily range): BP systolic 97–150; BP diastolic 65–86; PULSE 41–49; RESP 14–24; TEMP 36.1–36.8; O2SAT 88–97; BMI 23.9
--- NOTE | 2023-05-09 10:37 | EKG12_ITS ---
Test Reason : Blood Pressure : / mmHG Vent. Rate : 046 BPM Atrial Rate : 000 BPM P-R Int : 000 ms QRS Dur : 074 ms QT Int : 418 ms P-R-T Axes : 000 043 057 degrees QTc Int : 365 ms Junctional rhythm Cannot rule out Anterior infarct (cited on or before 04-APR-2021) ST & T wave abnormality, consider inferolateral ischemia Abnormal ECG NORMAL SINUS RHYTHM WITH HIGH GRADE AV BLOCK Confirmed by Abhijit Montenegro ([id number]), managing editor GT ERICKSON [id number]) on 05/12/2023 2:12:15 PM Referred By: Lincoln Mcguire Confirmed By:Abhijit Montenegro
--- NOTE | 2023-05-09 10:47 | EDS_ITS ---
HPI History of Present Illness Chief Complaint: Shortness of Breath Narrative Narrative: 78-year-old male presenting with shortness of breath. He states he is always short of breath. He seems a little confused. I asked him if he typically wears oxygen at home and he states yes and no . He then stares off. I repeated the question and he says not exactly . He states he does not believe he had a fever at home but has not checked. He does have a cough. He states he does not have any pain anywhere. He states he is not lightheaded or dizzy. He is not nauseous or vomiting. Patient does have history of COPD. Patient does answer questions appropriately with a delayed response. He is alert to self and situation. [facility] Medical History Benign essential hypertension Chronic obstructive lung disease COPD exacerbation Hypertension Tobacco abuse Home Medications simvastatin 40 mg tablet 40 mg PO QHS cholesterol 08/14/14 [History Last Taken Unknown] tamsulosin 0.4 mg capsule 0.8 mg PO DAILY prostate 08/14/14 [History Last Taken Unknown] amlodipine 2.5 mg tablet 5 mg PO DAILY bp 08/15/14 [History Last Taken Unknown] budesonide-formoterol HFA 160 mcg-4.5 mcg/actuation aerosol inhaler 2 puff inhalation BID breathing 05/22/18 [History Last Taken Unknown] latanoprost (PF) 0.005 % eye drops 1 drp EACH EYE QHS eye drops 05/22/18 [History Last Taken Unknown] lisinopril 20 mg-hydrochlorothiazide 12.5 mg tablet 2 tab PO DAILY blood pressure 05/22/18 [History Last Taken Unknown] ipratropium 0.5 mg-albuterol 3 mg (2.5 mg base)/3 mL nebulization soln 3 ml inhalation Q4H PRN PRN Shortness Of Breath ##30 05/25/18 [Rx Last Taken Unknown] azithromycin 250 mg tablet 250 mg PO UD ##1 11/22/19 [Rx Last Taken Unknown] prednisone 20 mg tablet 60 mg (3 x 20 mg) PO DAILY #15 tabs 11/22/19 [Rx Last Taken Unknown] azithromycin 250 mg tablet (Zithromax) 250 mg PO DAILY 4 days #4 tabs 04/04/21 [Rx Last Taken Unknown] prednisone 20 mg tablet 40 mg (2 x 20 mg) PO DAILY 7 days #14 tabs 04/04/21 [Rx Last Taken Unknown] prednisone 20 mg tablet 40 mg (2 x 20 mg) PO DAILY 5 days #10 tabs 09/11/21 [Rx Last Taken Unknown] prednisone 50 mg tablet 50 mg PO DAILY 5 days #5 tabs 05/09/23 [Rx Last Taken Unknown] Allergy/AdvReac Type Severity Reaction Status Date / Time No Known Allergies Allergy Verified 09/11/21 01:37 Social History Smoking Status: Current every day smoker tobacco type: cigarettes Tobacco: How many years used: 60 second hand exposure: Yes alcohol intake: never substance use type: does not use ROS ROS ED Constitutional Constitutional ED: Denies chills, fever(s) or sweats Eyes Eyes: Denies blurry vision or change in vision ENT ENT ED: Denies ear pain or sore throat Cardiovascular Cardiovascular: Denies chest pain, palpitations or racing heartbeat Respiratory/Chest Respiratory/Chest: Reports cough and dyspnea; Denies sputum Gastrointestinal Gastrointestinal: Denies abdominal pain, constipation, diarrhea, nausea or vomiting Genitourinary Genitourinary ED: Denies dysuria, hematuria or urinary frequency Musculoskeletal Musculoskeletal: Denies arthralgias, myalgias or neck pain Integumentary Denies abscess, Abrasions or rash Neurologic Neurologic: Denies headache(s), paresthesias or weakness Psychiatric Psychiatric: Denies anxiety, depression, suicidal ideation or suicidal thoughts Endocrine Endocrinology: Denies polydipsia or polyuria EXAM Physical Exam Const Vital Signs: 05/09/23 10:26 05/09/23 10:31 05/09/23 10:32 Temperature 98.3 F Temperature Source Oral Pulse Rate 49 L Respiratory Rate 23 H Respiratory Effort Short of Breath Respiratory Pattern Blood Pressure 97/86 H Blood Pressure Mean 89 Pulse Ox 93 93 Oxygen Delivery Method Room Air Room Air Room Air Oxygen Flow Rate (L/min) 05/09/23 10:35 05/09/23 10:35 05/09/23 10:39 Temperature Temperature Source Pulse Rate Respiratory Rate Respiratory Effort Respiratory Pattern Blood Pressure Blood Pressure Mean Pulse Ox 88 92 Oxygen Delivery Method Room Air Nasal Cannula Room Air Oxygen Flow Rate (L/min) 2 05/09/23 10:39 05/09/23 10:49 05/09/23 11:08 Temperature 97.8 F Temperature Source Temporal Pulse Rate 49 L 42 L Respiratory Rate 16 24 H Respiratory Effort Respiratory Pattern Tachypnea Blood Pressure 109/78 Blood Pressure Mean 88 Pulse Ox 93 Oxygen Delivery Method Room Air Room Air Oxygen Flow Rate (L/min) 05/09/23 12:00 05/09/23 13:50 Temperature 96.9 F L Temperature Source Pulse Rate 41 L 41 L Respiratory Rate 14 22 H Respiratory Effort Respiratory Pattern Blood Pressure 150/66 H 149/65 H Blood Pressure Mean 94 93 Pulse Ox 96 92 Oxygen Delivery Method Nasal Cannula Oxygen Flow Rate (L/min) Positive well nourished General Appearance ED: NAD; Negative for pallor HEENT Reports moist mucous membranes atraumatic Eyes PERRL and EOMs intact bilaterally Neck no lymphadenopathy and supple Resp normal respiratory effort and clear to auscultation bilaterally Cardio regular rhythm Rate: bradycardia GI non-tender Neuro CN's II-XII intact bilaterally and no sensory deficits noted Sensorium / Orientation: alert, oriented to person, oriented to place and oriented to time Skin no wounds General Skin Exam: Negative for jaundice or pallor MDM MDM MDM Narrative Medical decision making narrative: Patient presenting with dyspnea which is not a new issue for him. He is found to be bradycardic and found to be in a 3rd degree heart block on EKG on my interpretation. Cardiac workup was pursued. CBC to assess white blood cell count, hemoglobin, platelets. BMP to assess renal function, electrolytes, glucose. High-sensitivity troponin and BNP were obtained. CBC shows normal white blood cell count 10.5. Hemoglobin 16.2. Platelets 261 renal function normal. Potassium slightly low at 3.1 which was repleted orally. High- sensitivity troponin 18. BNP 123.1. Chest x-ray on my interpretation shows concern for CHF and the patient is slightly hypoxic at 91 to 92% on room air when his O2 is taken off. Patient was discussed with Dr. Montenegro who also spoke with Dr. Giang and the plan was to give the patient a pacemaker given his heart block. Patient expressed that he did not want this. Both Dr. Giang and myself spoke with the patient's son on the phone with nursing staff around and he ex pressed to his son that he does not want any pacemaker and he does not want to be admitted. His son acknowledges this. I individually called him back to make sure that he understood that his father was in heart failure and was hypoxic and his heart rate was 38-39 with a heart block and likely this would kill him. He acknowledged understanding severe disability, injury, based on current vi kendy signs and symptoms. Patient still does not want to stay at the hospital and is requesting to leave. Son is aware and states this is what he would want . I expressed to the patient's son that I could not obtain follow-up for him as his primary is the [place] and I recommended that he try to make contact with [facility] to get him to follow-up appointments. Patient discharged with a prednisone burst. He has albuterol at home. Impression: 1. CHF 2. Hypoxia 3. Third-degree heart block 4. COPD exacerbation Lab Data Attestation: I reviewed the patient's lab results. Labs: Laboratory Results - last 24 hr 05/09/23 10:41 WBC 10.5 RBC 5.01 Hgb 16.2 Hct 47.4 MCV 94.6 H MCH 32.3 H MCHC 34.2 RDW Std Deviation 51.0 H RDW Coeff of Tanja 14.7 H Plt Count 361 MPV 11.5 Immature Gran % (Auto) 0.600 Neut % (Auto) 56.6 Lymph % (Auto) 32.4 [place] % (Auto) 9.1 Eos % (Auto) 0.7 Baso % (Auto) 0.6 Absolute Neuts (auto) 5.9 Absolute Lymphs (auto) 3.39 Nucleated RBC % 0 Sodium 140 Potassium 3.1 L Chloride 104 Carbon Dioxide 32.0 Anion Gap 4 L BUN 11 Creatinine 0.87 Estim Creat Clear Calc 65.52 Est GFR (MDRD) Af Amer 108 Est GFR (MDRD) Non-Af 90 BUN/Creatinine Ratio 12.6 Glucose 94 Calcium 9.1 Troponin I High Sens 18 B-Natriuretic Peptide 123.1 H ABG Data ABG results: ABG 05/09/23 11:23 Specimen Type ART Sample Site R Radial pH 7.47 H Bicarbonate Actual 29.2 H Total CO2 30 Base Excess 6 H O2 Saturation 89 L ABG pCO2 40.4 ABG pO2 53 L O2 Delivery Device Room Air Vent Mode Not entered Radiography Diagnostic Testing: Clinical Impression(s) from Imaging Studies Chest X-Ray 05/09/23 11:20 IMPRESSION: Mild pulmonary venous hypertension worrisome for early CHF. This is a new finding when compared to 09/11/2021. Advise clinical correlation. Electronically Signed: José Latham MD at 11:33 EST , Discharge Plan Triage Chief Complaint: Shortness of Breath ED Provider: Lincoln Mcguire Dx/Rx/DC Orders Clinical Impression: CHF (congestive heart failure), Third degree heart block, Hypoxia, Acute hypokalemia Instructions: Heart Block 3rd Degree, ED Heart Failure, Congestive (CHF), ED Dyspnea Prescriptions: New prednisone 50 mg tablet 50 mg PO DAILY 5 Days Qty: 5 0RF No Action simvastatin 40 MG tablet 40 mg PO QHS tamsulosin 0.4 MG capsule 0.8 mg PO DAILY amlodipine 2.5 MG tablet 5 mg PO DAILY Patient Comments: PT UNSURE OF DOSE budesonide-formoterol 1 INHALER inhaler 2 puff inhalation BID lisinopril-hydrochlorothiazide 1 EACH tablet 2 tab PO DAILY latanoprost (PF) 7.5 ML drops 1 drp EACH EYE QHS ipratropium-albuterol 3 ML solution for nebulization 3 ml inhalation Q4H PRN PRN (Reason: Shortness Of Breath) Qty: 30 0RF prednisone 20 MG tablet 60 mg PO DAILY Qty: 15 0RF Rx Instructions: With food azithromycin 250 MG tablet 250 mg PO UD Qty: 1 0RF Rx Instructions: TAKE 2 TABLETS 1ST DAY THEN 1 TABLET DAILY FOR NEXT 4 DAYS. prednisone 20 mg tablet 40 mg PO DAILY 7 Days Qty: 14 0RF azithromycin [Zithromax] 250 mg tablet 250 mg PO DAILY 4 Days Qty: 4 0RF Rx Instructions: start on day 2 of therapy prednisone 20 mg tablet 40 mg PO DAILY 5 Days Qty: 10 0RF [facility] [[facility] Provider[facility] - Disposition Disposition: Against Medical Advice
[2023-05-09 11:04] LABS: Absolute Lymphocyte Count 3.39 X10^3/uL (0.83-4.51); Absolute Neutrophil Count 5.9 X10^3/uL (2.0-7.7); Basophil# 0.06 X10^3/uL; Basophil% 0.6 % (0-1); Eosinophil# 0.07 X10^3/uL; Eosinophils% 0.7 % (0-5); Hematocrit 47.4 % (40-54); Hemoglobin 16.2 g/dL (13.0-16.5); Lymphocyte # 3.39 X10^3/ul (0.83-4.51); Lymphocyte % 32.4 % (19-41); Mean Corp Hgb Conc 34.2 g/dL (32-36); Mean Corpuscular Hgb 32.3 pg (27.0-32.0); Mean Corpuscular Volume 94.6 fL (80-94); Mean Platelet Vol. 11.5 fl (6.2-12.0); Monocyte# 0.95 X10^3/uL; Monocyte% 9.1 % (0-10); NRBC Flagged by Analyzer 0 % (0-5); Neutrophil # 5.94 X10^3/uL (2.7-7.7); Neutrophil % 56.6 % (47-70); Platelet Count 361 K/mm3 (150-450); RBC Distribution Width CV 14.7 % (11.6-14.6); Red Blood Count 5.01 M/mm3 (4.6-6.2); White Blood Count 10.5 K/mm3 (4.4-11.0)
[2023-05-09] MEDS: Ipratropium/Albuterol Sulfate 3 ML AMPUL.NEB INHALATION (11:08)
[2023-05-09] MEDS: MethylPREDNISolone 125 MG/2 ML Vial IV (11:13)
[2023-05-09 11:15] LABS: Anion Gap 4 (5-15); BUN 11 mg/dL (7-18); BUN/Creat Ratio 12.6 RATIO (10-20); Calcium,Total 9.1 mg/dL (8.5-10.1); Chloride 104 mmol/L (98-107); Creatinine, Serum 0.87 mg/dL (0.70-1.30); EST Glomerular Filtration Rate 90 mL/min (>60); Est Glom Filt Rate - Afr Amer 108 mL/min (>60); Estimated Creatinine Clearance 65.52 ml/min; Glucose 94 mg/dL (74-106); Potassium 3.1 mmol/L (3.5-5.1); Sodium Level 140 mmol/L (136-145); Troponin-I HS 18 pg/mL (3.0-78.0)
--- NOTE | 2023-05-09 11:20 | RAD_ITS ---
EXAM: XR CHEST, 1 VIEW CLINICAL INDICATION: SOB TECHNIQUE: Frontal view of the chest. COMPARISON: 09/11/2021. FINDINGS: LUNGS AND PLEURAL SPACES: Discoid scarring with adjacent subsegmental atelectases in the left lower to mid peripheral lung zone. Clearing of discoid atelectasis in the right peripheral lung base. No pneumothorax. No effusion. No suspicious infiltrates. HEART: Unremarkable. Cardiac silhouette not enlarged. There is suspicious mild pulmonary venous hypertension worrisome for early CHF. MEDIASTINUM: Central airways and mediastinal contour are unremarkable. BONES/JOINTS: Unremarkable. No acute fracture. SOFT TISSUES: Unremarkable. RAD/Chest 1 View (Portable) IMPRESSION: Mild pulmonary venous hypertension worrisome for early CHF. This is a new finding when compared to 09/11/2021. Advise clinical correlation. Electronically Signed: José Latham MD at 11:33 EST ,
[2023-05-09 11:23] LABS: BNP,B-Type NATRIURETIC PEPTIDE 123.1 pg/mL (0-100)
[2023-05-09 11:26] LABS: Base Excess 6 mmol/L (-2 to +2); Bicarbonate 29.2 mmol/L (22-26); Blood Gas Specimen Type ART; Mode Not entered; O2 Delivery Device Room Air; PO2 53 mmHG (75-100); SITE R Radial; SO2 89 % (95-99); Total Carbon Dioxide 30 mmol/L; pCO2 40.4 mmHg (35-45); pH 7.47 (7.35-7.45)
--- NOTE | 2023-05-09 11:40 | ED.RN ---
THIS RN CONTACTED PT SISTER, WAS UNABLE TO REACH VIA PHONE CALL. THIS RN LEFT A VOICE MESSAGE WITH CALL BACK NUMBER.
--- NOTE | 2023-05-09 12:33 | ED.RN ---
THIS RN ASKED BY HEATHER MEZA TO NOTIFY PT SISTER OF HIS PRESENCE IN THE EMERGENCY ROOM, THE PATIENT HAD REQUESTED BY THE PATIENT. THIS RN CALLS VITA, THERE WAS NO ANSWER, AND THIS RN LEAVES A VOICE MESSAGE WITH A CALL BACK NUMBER. PT IS BRADYCARDIC WITH A HEART RATE 30-40 BEATS PER MINUTE. PT IS ALERT AND ORIENTED X3. PT REPORTS THAT HE DOES NOT WANT TO HAVE A PACEMAKER PLACED. PER DR. CHICAS PT DOES NOT HAVE CAPACITY TO MAKE MEDICAL DECISIONS AND REQUESTS THIS [employer] TO CONTACT THE SON. DR. MILAN AT THE BEDSIDE TO SPEAK WITH PATIENT ABOUT HIS SX AND BRADYCARDIA. DR. MILAN PROVIDES EDUCATION TO PT AND SON VIA PHONE CALL ABOUT MEDICAL NEED FOR THE PACEMAKER AND THE PATIENT REFUSES. THIS RN CALLS SON SHERYL AND INFORMS HIM OF PT PRESENCE IN THE DEPARTMENT AND SITUATION OF HIS LOW HEART RATE AND CONCERN OF PT BEING CONFUSED. SHERYL SPEAKS WITH THE PATIENT ON THE PHONE ,AND SPEAKS WITH WELL AND SHERYL REPORTS THAT HE WILL APPROVE OF THE FATHER SIGNING OUT AGAINST MEDICAL ADVICE. DR. CHICAS SHARES CONCERN THAT THE PT COULD FROM DECLINING INTERVENTION AND THE PATIENT AND THE SON REPORT THAT THEY ARE OK WITH THE PATIENT SIGNING OUT AMA. PT SIGNS AMA FORMS.
--- NOTE | 2023-05-09 12:52 | ED.RN ---
Patient states we need to contact Isaias for his ride home, no number for Isaias who is his landlord in his phone. Patient states he has his number at home and then requests the number for [employer] who would be able to come to get him. A number was provided to patient for [employer] and this nurse stayed in the patient room while he made the phone call. Patient spoke with Beth who advised they would arrange for someone to come pick him up. Patient did not hang up the phone and was noticed when I went to store the phone number for [employer] number in patients phone per his request, Beth called back and stated is he safe to go with us because I heard your conversation and I was making sure he was discharged . The conversation was again about patient being safe to go home, his health possibly deteriorating further with signing out against medical advise. At that time before I could answer Beth fully, patient sister Fatmata arrived to the hospital. I updated Beth that we were in discussion now with family and patient would not need a ride home right now. With patient's permission, I updated Fatmata regarding patient decision to sign out AMA, son Isaias being aware and approves decision. Fatmata was also updated that patient was strongly advised to stay at the hospital. At that point I stepped outside the room to let the family talk with patient.
--- NOTE | 2023-05-09 13:20 | ED.RN ---
Conversation with sister and her spouse along with patient, patient continues to be adament he wants to go home. He asks if I change my mind, can I come back in . I emphasized the importance on if he has any doubt he should consider staying at the hospital, Fatmata (sister) also emphasizes the importance. Patient advised to return to ED if symptoms worsen. Patient will be transported by sister back to his residence.
== END 2023-05-09 13:50 | disposition left against medical advice (07) ==
PROVIDERS: Emergency Provider Student in an Organized Health Care Education/Training Program; Referring Provider Student in an Organized Health Care Education/Training Program; Visit Provider Student in an Organized Health Care Education/Training Program
DX: I11.0 Hypertensive heart disease with heart failure (principal); J44.1 Chronic obstructive pulmonary disease with (acute) exacerbation; I50.9 Heart failure, unspecified; I44.2 Atrioventricular block, complete; E87.6 Hypokalemia; F17.210 Nicotine dependence, cigarettes, uncomplicated; R09.02 Hypoxemia
CPT/HCPCS: 36600; 71045; 80048; 82803; 83880; 84484; 85025; 87631; 93005; 94640; 96374; 99283

== ENCOUNTER 2023-05-14 03:54 | Inpatient (IN) | payer OTHER, SELFPAY ==
[2023-05-14] VITALS (20 sets, daily range): BP systolic 114–146; BP diastolic 45–105; PULSE 38–62; RESP 16–24; TEMP 35.8–36.7; O2SAT 92–98; BMI 26.0; BMI 24.1
--- NOTE | 2023-05-14 03:57 | EKG12_ITS ---
Test Reason : sob Blood Pressure : / mmHG Vent. Rate : 045 BPM Atrial Rate : 000 BPM P-R Int : 000 ms QRS Dur : 090 ms QT Int : 500 ms P-R-T Axes : 000 026 052 degrees QTc Int : 432 ms SINUS RHYTHM WITH 2:1 CONDUCTION Nonspecific T wave abnormality Abnormal ECG Confirmed by KAYLI BARRIOS, BRISSA ([id number]), legal editor GT ERICKSON ([id number]) on 05/15/2023 6:23:21 AM Referred By: Confirmed By:BRISSA MILAN MD
--- NOTE | 2023-05-14 03:57 | RAD_ITS ---
INDICATION: sob EXAMINATION/TECHNIQUE: X-RAY - XR Chest 2 Views COMPARISON: Prior study dated: 05/09/2023 FINDINGS: LINES/DEVICES: None. LUNGS: The lungs are well expanded. There is increased retrocardiac opacity. No pleural effusion or edema. No pneumothorax. MEDIASTINUM AND CARDIOVASCULAR STRUCTURES: Cardiac silhouette not enlarged. Aortic calcification. Central airways and mediastinal contour are unremarkable. BONES AND SOFT TISSUES: No acute abnormality. RAD/Chest PA and Lateral IMPRESSION: Increased retrocardiac opacity which could be atelectasis or pneumonia. Electronically Signed: Ashu Ellis MD at 5:55 EDT ,
--- NOTE | 2023-05-14 04:01 | ED.VIS.DYS ---
HPI History of Present Illness Chief Complaint: Shortness of Breath Informant: patient and EMS Narrative Narrative: Patient states he has been short of breath the last couple hours at home, presenting to the ER by EMS at around 4 AM. He denies a recent cough, denies any chest discomfort, admits that he has swelling in both legs that is worse than usual, denies orthopnea. EMS notes that he has a history of COPD and CHF, he has an albuterol nebulizer at home, patient admits this and also admits that he did not try to use it this morning. When asked why, he states it did not occur to him. [facility] Medical History (Updated 05/14/23 @ 06:[address] Zackery Teixeira MD) Benign essential hypertension CHF (congestive heart failure) Chronic obstructive lung disease Hypertension Nicotine dependence, cigarettes, uncomplicated Third degree heart block Tobacco abuse Home Medications simvastatin 40 mg tablet 40 mg PO QHS cholesterol 08/14/14 [History Last Taken Unknown] tamsulosin 0.4 mg capsule 0.8 mg PO DAILY prostate 08/14/14 [History Last Taken Unknown] amlodipine 2.5 mg tablet 5 mg PO DAILY bp 08/15/14 [History Last Taken Unknown] budesonide-formoterol HFA 160 mcg-4.5 mcg/actuation aerosol inhaler 2 puff inhalation BID breathing 05/22/18 [History Last Taken Unknown] latanoprost (PF) 0.005 % eye drops 1 drp EACH EYE QHS eye drops 05/22/18 [History Last Taken Unknown] lisinopril 20 mg-hydrochlorothiazide 12.5 mg tablet 2 tab PO DAILY blood pressure 05/22/18 [History Last Taken Unknown] ipratropium 0.5 mg-albuterol 3 mg (2.5 mg base)/3 mL nebulization soln 3 ml inhalation Q4H PRN PRN Shortness Of Breath ##30 05/25/18 [Rx Last Taken Unknown] Allergy/AdvReac Type Severity Reaction Status Date / Time No Known Allergies Allergy Verified 09/11/21 01:37 Social History Smoking Status: Current every day smoker tobacco type: cigarettes Tobacco: How many years used: 60 second hand exposure: Yes alcohol intake: never substance use type: does not use ROS ROS ED Constitutional Constitutional ED: Denies chills or fever(s) Eyes Eyes: Denies change in vision or diplopia ENT ENT ED: Denies rhinorrhea or sore throat Cardiovascular Cardiovascular: Reports leg edema; Denies chest pain, orthopnea or palpitations Respiratory/Chest Respiratory/Chest: Reports dyspnea; Denies cough or orthopnea Gastrointestinal Gastrointestinal: Denies abdominal pain, diarrhea, nausea or vomiting Genitourinary Genitourinary ED: Denies dysuria or hematuria Musculoskeletal Musculoskeletal: Denies back pain or neck pain Integumentary Denies abscess or rash Neurologic Neurologic: Denies headache(s), paresthesias or weakness Psychiatric Psychiatric: Reports anxiety; Denies suicidal thoughts EXAM Physical Exam Const Vital Signs: 05/14/23 03:55 05/14/23 04:01 05/14/23 04:30 Temperature 96.4 F L Temperature Source Temporal Pulse Rate 62 55 L Respiratory Rate 23 H 18 Respiratory Effort Short of Breath Respiratory Pattern Tachypnea Normal Blood Pressure 136/98 H Blood Pressure Mean 110 Pulse Ox 96 Oxygen Delivery Method Room Air 05/14/23 04:50 05/14/23 05:24 05/14/23 03:57 Temperature Temperature Source Pulse Rate 55 L 48 L Respiratory Rate 18 Respiratory Effort Respiratory Pattern Normal Blood Pressure 136/68 H Blood Pressure Mean Pulse Ox Oxygen Delivery Method Room Air 05/14/23 03:54 05/14/23 05:54 05/14/23 07:00 Temperature 97.4 F L Temperature Source Oral Pulse Rate 40 L 45 L 47 L Respiratory Rate 22 H 17 20 H Respiratory Effort Respiratory Pattern Blood Pressure 141/50 H 146/70 H 136/64 H Blood Pressure Mean 80 95 88 Pulse Ox 94 93 94 Oxygen Delivery Method Room Air Room Air Room Air 05/14/23 07:20 05/14/23 07:30 05/14/23 07:40 Temperature Temperature Source Pulse Rate 46 L 43 L 50 L Respiratory Rate 18 16 20 H Respiratory Effort Respiratory Pattern Blood Pressure 121/55 H Blood Pressure Mean 76 Pulse Ox 93 93 93 Oxygen Delivery Method 05/14/23 07:45 05/14/23 07:50 Temperature Temperature Source Pulse Rate 38 L 48 L Respiratory Rate 20 H 19 H Respiratory Effort Respiratory Pattern Blood Pressure 126/67 H Blood Pressure Mean 86 Pulse Ox 92 93 Oxygen Delivery Method Positive well nourished and well developed General Appearance ED: well developed and NAD HEENT Reports moist mucous membranes normocephalic and atraumatic Eyes PERRL and EOMs intact bilaterally Neck full ROM and supple Resp clear to auscultation bilaterally Resp Narrative: Tachypnea, no respiratory distress. Speaking in 10 word sentences, at least. Equal breath sounds bilaterally, diminished throughout but symmetrically. No other abnormal breath sounds. Cardio regular rate and regular rhythm Rate: Negative for bradycardia or tachycardic GI non-tender and non-distended Auscultation: normoactive bowel sounds Palpation: soft Back/Spine no CVA tenderness General Back: other FROM Extremity normal to inspection General Extremety ED: Yes edema; Negative for pulses abnormal or tenderness General Extremity: edema bilateral lower extremity Details: moderate; Negative for pulses abnormal Neuro oriented x3, CN's II-XII intact bilaterally and no sensory deficits noted Sensorium / Orientation: awake and alert Motor Exam: strength 5/5 throughout Psych Psych Narrative: Somewhat anxious, speaking at staff angrily Skin no rashes or lesions noted and no wounds MDM MDM MDM Narrative Medical decision making narrative: I reviewed prior ED visits to see if the patient had been here recently, he was here 5 days ago. Apparently he was in acute congestive heart failure to some degree, and had complete heart block on the EKG. He left AGAINST MEDICAL ADVICE, understanding that he could without a pacemaker. Here, his EKG similarly shows a rate in the 40s, on my interpretation it appears to be a high-grade AV block, 2:1 conduction with a PVC that appears to reset the ventricular starting point. Otherwise morphology is very similar to the one that he had 5 days ago. There is no acute injury pattern. In addition to the EKG, respiratory workup was ordered, and he was empirically treated for COPD with nebulizer treatments. He states afterwards that they did not help his breathing and he still feels short of breath although his respiratory rate is 18, and he is yelling at staff about it that he wants to get out of here if no one is going to help him. I explained to him that we are monitoring him closely, his vital signs are stable and normal, and that testing is underway but does not happen immediately since there are other patients in the department. He became more upset, again asking why we are not helping him if he cannot breathe. Seen 5 days ago that his x-ray showed mild pulmonary venous congestion, and that he was prescribed prednisone, I had nursing give him a nitroglycerin and considering the possibility that he has more pulmonary edema now although he does not sound wet, after that he stopped complaining of dyspnea and was able to converse with us in full sentences without any difficulty. His two-view chest x-ray on my interpretation looks very similar to what it did 5 days ago; radiology states he appears to have developed acute consolidation/infiltrate left lower lobe retrocardiac. In reviewing his tests that he had 5 days ago, it appears that he tested positive for COVID although it was not discussed and the patient did not know about it until I told him. When I asked him for how long he has been coughing, he states he thinks at least a week, definitely not less. This makes it much less likely that he continues to be contagious at this time, and his leukocytosis argues against active COVID as well. Given the possibility of early pneumonia, I will cover him with antibiotics, holding off on Decadron since he has been on steroids recently. His BNP came back a little more elevated than it was 5 days ago, from 123 to 202. This is still not extremely high for an 78-year-old man, and clinically he is not in acute congestive heart failure. He does have some peripheral fluid retention however which could be related to some right-sided failure. In addition I discussed with him the high degree AV block that he seems to continue to have, as well as refreshing his memory about the discussions with cardiology and about his heart several days ago. He does recall this, he states he change his mind and now he wants the pacemaker. He states he does not want to be admitted for it, but in discussing this further with him, I advised that he get the pacemaker soon as possible, because going home and coming back introduces unnecessary risk of permanent disability and due to symptomatic bradycardia and/or cardiac arrest. In the end after long discussion the patient is amenable to staying in the hospital if that is what it takes to get the pacemaker. History & Record Review Additional record(s) reviewed:: Prior ED visit Lab Data Attestation: I reviewed the patient's lab results. Labs: Laboratory Results - last 24 hr 05/14/23 04:28 WBC 14.1 H RBC 4.71 Hgb 15.6 Hct 45.4 MCV 96.4 H MCH 33.1 H MCHC 34.4 RDW Std Deviation 51.2 H RDW Coeff of Tanja 14.6 Plt Count 312 MPV 12.4 H Immature Gran % (Auto) 1.100 H Neut % (Auto) 80.0 H Lymph % (Auto) 11.2 L Falls % (Auto) 7.6 Eos % (Auto) 0.0 Baso % (Auto) 0.1 Absolute Neuts (auto) 11.3 H Absolute Lymphs (auto) 1.57 Nucleated RBC % 0 Sodium 143 Potassium 3.6 Chloride 105 Carbon Dioxide 34.0 H Anion Gap 4 L BUN 27 H Creatinine 1.00 Estim Creat Clear Calc 57.00 Est GFR (MDRD) Af Amer 93 Est GFR (MDRD) Non-Af 76 BUN/Creatinine Ratio 27.0 H Glucose 149 H Calcium 9.0 Troponin I High Sens 18 B-Natriuretic Peptide 201.7 H Radiography Diagnostic Testing: Clinical Impression(s) from Imaging Studies Chest X-Ray 05/14/23 03:57 IMPRESSION: Increased retrocardiac opacity which could be atelectasis or pneumonia. Electronically Signed: Ashu Ellis MD at 5:55 EDT Reading Location ID and State: [address] [place] [address] Tel , Service support , Rhythm Strip Rhythm Strip: Bradycardia Rate: 45 Ectopy: PVC(s) EKG Initial EKG: Attestation: I personally reviewed and interpreted this EKG as follows: Comments: High degree AV block, PVC, bradycardia Prior EKG tracings: available for review (05/09/2023) Prior: Unchanged Management Discussion w/another healthcare provider: Hospitalist and Rubber Splicer (Cardiology) Discharge Plan Dx/Rx/DC Orders Clinical Impression: High degree atrioventricular block, COVID-19, Pneumonia Disposition Disposition: Acute Care Hospital [facility]
[2023-05-14] MEDS: Albuterol 2.5 MG/3 ML VIAL.NEB. INHALATION ×3 (04:30→05:05)
[2023-05-14] MEDS: Ipratropium/Albuterol Sulfate 3 ML AMPUL.NEB INHALATION (04:30)
[2023-05-14 05:00] LABS: Anion Gap 4 (5-15); BUN 27 mg/dL (7-18); Chloride 105 mmol/L (98-107); EST Glomerular Filtration Rate 76 mL/min (>60); Est Glom Filt Rate - Afr Amer 93 mL/min (>60); Glucose 149 mg/dL (74-106); Potassium 3.6 mmol/L (3.5-5.1); Sodium Level 143 mmol/L (136-145); Troponin-I HS 18 pg/mL (3.0-78.0)
[2023-05-14] MEDS: Nitroglycerin SL (ED/IMG/CATH) 0.4 MG TABLET SL (05:24)
[2023-05-14 06:51] LABS: Absolute Lymphocyte Count 1.57 X10^3/uL (0.83-4.51); Absolute Neutrophil Count 11.3 X10^3/uL (2.0-7.7); Basophil# 0.02 X10^3/uL; Basophil% 0.1 % (0-1); Hematocrit 45.4 % (40-54); Hemoglobin 15.6 g/dL (13.0-16.5); Lymphocyte # 1.57 X10^3/ul (0.83-4.51); Lymphocyte % 11.2 % (19-41); Mean Corp Hgb Conc 34.4 g/dL (32-36); Mean Corpuscular Hgb 33.1 pg (27.0-32.0); Mean Corpuscular Volume 96.4 fL (80-94); Mean Platelet Vol. 12.4 fl (6.2-12.0); Monocyte# 1.07 X10^3/uL; Monocyte% 7.6 % (0-10); NRBC Flagged by Analyzer 0 % (0-5); Neutrophil # 11.25 X10^3/uL (2.7-7.7); Platelet Count 312 K/mm3 (150-450); RBC Distribution Width CV 14.6 % (11.6-14.6); RBC Distribution Width SD 51.2 fl (35.1-43.9); Red Blood Count 4.71 M/mm3 (4.6-6.2); White Blood Count 14.1 K/mm3 (4.4-11.0)
[2023-05-14] MEDS: Piperacil/Tazobactam 4.5 GM in 0.9% Normal Saline (100mL MB+) 100 ML IV (06:53)
[2023-05-14 07:42] LABS: BNP,B-Type NATRIURETIC PEPTIDE 201.7 pg/mL (0-100)
[2023-05-14] MEDS: Azithromycin 500 MG in Dextrose 5%-Water (250mL Bag) 250 ML 250 MG IV (07:48)
--- NOTE | 2023-05-14 08:05 | NURSING ---
DR FLORENCE FOR DR TRACEY
--- NOTE | 2023-05-14 08:09 | NURSING ---
PCU NAMAN H[facility]G AVB, DAVE
--- NOTE | 2023-05-14 08:11 | PCM.HP.STD ---
[facility] - General General Date of Admission: 05/14/23 Date of Service: 05/14/23 Chief Complaint: Shortness of breath ongoing for 5 days to 1 week. HPI Narrative FELTON BARBER, is a 78 M was brought to ED by EMS for shortness of breath pulse ox 92% on room air. As per the ED physician, patient is short of breath for about 1 day but looks like he has chronic shortness of breath on exertion as he came to ED on 05/09/2023 for shortness of breath. At that time patient was found to be COVID-positive. He has history of chronic smoking, 60 pack years of smoking. At that time patient was found to have high degree AV block/third-degree AV block and patient was recommended to admit but but he did not want to stay in the hospital and signed AMA. Patient was given prescription of prednisone 50 mg daily for 5 days and discharged. At home patient is on baseline COPD regimen with Symbicort When I see the patient on floor, boni moeller was called as he was very aggressive and agitated and restless. Patient was given 2 mg IV Haldol and 12.5 mg Phenergan and is little sedated. [facility] Medical History Benign essential hypertension CHF (congestive heart failure) Chronic obstructive lung disease Hypertension Nicotine dependence, cigarettes, uncomplicated Third degree heart block Tobacco abuse Home Medications simvastatin 40 mg tablet 40 mg PO QHS cholesterol 08/14/14 [History Last Taken Unknown] tamsulosin 0.4 mg capsule 0.8 mg PO DAILY prostate 08/14/14 [History Last Taken Unknown] amlodipine 2.5 mg tablet 5 mg PO DAILY bp 08/15/14 [History Last Taken Unknown] budesonide-formoterol HFA 160 mcg-4.5 mcg/actuation aerosol inhaler 2 puff inhalation BID breathing 05/22/18 [History Last Taken Unknown] latanoprost (PF) 0.005 % eye drops 1 drp EACH EYE QHS eye drops 05/22/18 [History Last Taken Unknown] lisinopril 20 mg-hydrochlorothiazide 12.5 mg tablet 2 tab PO DAILY blood pressure 05/22/18 [History Last Taken Unknown] ipratropium 0.5 mg-albuterol 3 mg (2.5 mg base)/3 mL nebulization soln 3 ml inhalation Q4H PRN PRN Shortness Of Breath ##30 05/25/18 [Rx Last Taken Unknown] Allergy/AdvReac Type Severity Reaction Status Date / Time No Known Allergies Allergy Verified 09/11/21 01:37 Social History Smoking Status: Current every day smoker tobacco type: cigarettes Tobacco: How many years used: 60 second hand exposure: Yes alcohol intake: never substance use type: does not use ROS ROS Narrative Patient encoded while at, aggressive restless and agitated. 14 system ROS unobtainable due to encephalopathy Review of Systems ROS Unobtainable: due to encephalopathy Vital Signs Vital Signs Vital Signs: 05/14/23 03:55 05/14/23 04:01 05/14/23 04:30 Temperature 96.4 F L Temperature Source Temporal Pulse Rate 62 55 L Respiratory Rate 23 H 18 Respiratory Effort Short of Breath Respiratory Pattern Tachypnea Normal Blood Pressure 136/98 H Blood Pressure Mean 110 Pulse Ox 96 Oxygen Delivery Method Room Air 05/14/23 04:50 05/14/23 05:24 05/14/23 03:57 Temperature Temperature Source Pulse Rate 55 L 48 L Respiratory Rate 18 Respiratory Effort Respiratory Pattern Normal Blood Pressure 136/68 H Blood Pressure Mean Pulse Ox Oxygen Delivery Method Room Air 05/14/23 03:54 05/14/23 05:54 05/14/23 07:00 Temperature 97.4 F L Temperature Source Oral Pulse Rate 40 L 45 L 47 L Respiratory Rate 22 H 17 20 H Respiratory Effort Respiratory Pattern Blood Pressure 141/50 H 146/70 H 136/64 H Blood Pressure Mean 80 95 88 Pulse Ox 94 93 94 Oxygen Delivery Method Room Air Room Air Room Air 05/14/23 07:20 05/14/23 07:30 05/14/23 07:40 Temperature Temperature Source Pulse Rate 46 L 43 L 50 L Respiratory Rate 18 16 20 H Respiratory Effort Respiratory Pattern Blood Pressure 121/55 H Blood Pressure Mean 76 Pulse Ox 93 93 93 Oxygen Delivery Method 05/14/23 07:45 05/14/23 07:50 Temperature Temperature Source Pulse Rate 38 L 48 L Respiratory Rate 20 H 19 H Respiratory Effort Respiratory Pattern Blood Pressure 126/67 H Blood Pressure Mean 86 Pulse Ox 92 93 Oxygen Delivery Method Weight Weight: 171 lb 8.314 oz Body Mass Index (BMI) 26.0 Physical Exam Narrative General: Lightly sedated but wakes up with opening eyes. Confused after Haldol and Phenergan HEENT: Atraumatic, PERRLA, EOMI, Normocephalic Oral: Oral mucosa dry no Gingival or Mucosal Lesions/ Ulcerations Neck: Supple, No JVD, Negative Carotid Bruits Chest wall/Lungs: Air entry diminished in bilateral lung bases. Bilateral coarse rhonchi Cardiovascular: Severe bradycardia, junctional rhythm normal S1, Normal S2, No M/G/R Abdomen: Bowel Sounds Present, Soft, Non Tender, Non-Distended : No dysuria. No renal angle tenderness. No suprapubic tenderness. Extremities: No edema, Capillary Refill Less than 3 Seconds Skin: No rashes, No breakdown Musculoskeletal: No Tenderness to Palpation of Joints or Extremities. Likely secondary therefore monitor out sensory exam not obtained Neurological: DTR 2+/4. Detailed neuroexam unobtainable Psych/Mental Status: Aggressive. Results Lab / Micro Data 05/14/23 04:28 05/14/23 04:28 Labs: Laboratory Results - last 24 hr 05/14/23 04:28: WBC 14.1 H, RBC 4.71, Hgb 15.6, Hct 45.4, MCV 96.4 H, MCH 33.1 H, MCHC 34.4, RDW Std Deviation 51.2 H, RDW Coeff of Tanja 14.6, Plt Count 312, MPV 12.4 H, Immature Gran % (Auto) 1.100 H, Neut % (Auto) 80.0 H, Lymph % (Auto) 11.2 L, Real % (Auto) 7.6, Eos % (Auto) 0.0, Baso % (Auto) 0.1, Absolute Neuts (auto) 11.3 H, Absolute Lymphs (auto) 1.57, Nucleated RBC % 0, Sodium 143, Potassium 3.6, Chloride 105, Carbon Dioxide 34.0 H, Anion Gap 4 L, BUN 27 H, Creatinine 1.00, Estim Creat Clear Calc 57.00, Est GFR (MDRD) Af Amer 93, Est GFR (MDRD) Non-Af 76, BUN/Creatinine Ratio 27.0 H, Glucose 149 H, Calcium 9.0, Troponin I High Sens 18, B-Natriuretic Peptide 201.7 H Rhythm Strip Rhythm Strip: Bradycardia Rate: 45 Ectopy: PVC(s) Imaging Radiology Impression Chest X-Ray 05/14/23 03:57 IMPRESSION: Increased retrocardiac opacity which could be atelectasis or pneumonia. Electronically Signed: Ashu Ellis MD at 5:55 EDT Reading Location ID and State: [address] [place] [address] Tel , Service support , Assessment & Plan Assessment/Plan (1) High degree atrioventricular block: (2) COVID-19: PLAN: Plan This 78-year-old gentleman being admitted for shortness of breath probably 1 week with chronic cough and found to have high degree AV block. On the floor he got very aggressive, restless and history but it was called had to be given Haldol and Phenergan to calm down. 1. High degree AV block possible third-degree block: Twelve-lead EKG from today and 05/08 reviewed. It shows junctional rhythm at 45 bpm, AV block with PVCs. P waves are not clear. 3 troponins are negative therefore ACS ruled out. Patient was seen by adjunct physical education instructor due to ED visit on 05/18 and was recommended permanent pacemaker. [employer] is consulted. He was first-degree AV block with sinus arrhythmia on previous admission in May 2018 2. COPD with COVID 19 recent infection: Patient is positive of COVID on 05/18 and was discharged on prednisone 50 mg daily for 5 days. I think high-dose of prednisone might have caused acute psychosis symptoms. Prednisone is discontinued. Chest x-ray individually reviewed and shows infiltrate on retrocardiac on PA and lateral view. Unclear whether it is new or chronic infiltrate but started on IV ceftriaxone and Zithromax to treat infection for pacemaker. Blood cultures x 2 and pneumonia workup ordered. Patient does not meet criteria for dexamethasone or remdesivir as is not hypoxic. Does not seem to be exacerbation 3. 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 He is not able to rationalize. As per the nursing staff, he wanted pacemaker right at that time so that he can go home after that. Patient was given Haldol and Phenergan. Started on low-dose Seroquel 25 mg twice daily. 4. Hypertension: Blood pressure is controlled. 5. Chronic nicotine use, smoker, 2 packs/day for about [address] Steel in pulmonary clinic. During previous clinic visit he was counseled to quit smoking 6. DVT prophylaxis on Lovenox Microbiology Past 72 Hours 05/14/23 08:48 Mucosa - Nose SARS-CoV-2, Influenza & RSV (PCR) - Final SARS-CoV-2 (COVID 19 PCR) Laboratory Results 05/14/23 04:28: WBC 14.1 H, RBC 4.71, Hgb 15.6, Hct 45.4, MCV 96.4 H, MCH 33.1 H, MCHC 34.4, RDW Std Deviation 51.2 H, RDW Coeff of Tanja 14.6, Plt Count 312, MPV 12.4 H, Immature Gran % (Auto) 1.100 H, Neut % (Auto) 80.0 H, Lymph % (Auto) 11.2 L, Real % (Auto) 7.6, Eos % (Auto) 0.0, Baso % (Auto) 0.1, Absolute Neuts (auto) 11.3 H, Absolute Lymphs (auto) 1.57, Nucleated RBC % 0, Sodium 143, Potassium 3.6, Chloride 105, Carbon Dioxide 34.0 H, Anion Gap 4 L, BUN 27 H, Creatinine 1.00, Estim Creat Clear Calc 57.00, Est GFR (MDRD) Af Amer 93, Est GFR (MDRD) Non-Af 76, BUN/Creatinine Ratio 27.0 H, Glucose 149 H, Calcium 9.0, Phosphorus 2.1 L, Magnesium 2.3, Troponin I High Sens 18, B-Natriuretic Peptide 201.7 H 05/14/23 09:25: Troponin I High Sens 21 05/14/23 10:40: Troponin I High Sens 21 Clinical Impression(s) from Imaging Studies Chest X-Ray 05/14/23 03:57 IMPRESSION: Increased retrocardiac opacity which could be atelectasis or pneumonia. Electronically Signed: Ashu Ellis MD at 5:55 EDT , Charges/Coding Visit Charges Inpatient E&M: 93275 Init Hosp L3
[2023-05-14 08:40] LABS: Magnesium 2.3 mg/dL (1.6-2.6); Phosphorus 2.1 mg/dL (2.5-4.9)
--- NOTE | 2023-05-14 09:04 | ECHOD_ITS ---
Reason For Study: Complete Heart Block Procedure This was a limited 2D transthoracic echocardiogram. Exam performed portable in patient room. The exam was abbreviated due to the COVID 19 protocol. Left Ventricle Normal LV size. Left ventricular systolic function is normal. The estimated ejection fraction is 70 %. No regional wall motion abnormalities noted. Right Ventricle Normal RV size. Normal systolic function. Atria Normal left atrium. Normal right atrium. Mitral Valve Normal mitral valve. Tricuspid Valve Normal tricuspid valve. Mild (1+) tricuspid valve insufficiency. Pulmonary artery systolic pressure is 45 mmHg. Aortic Valve Trisinus/trileaflet aortic valve. Pulmonic Valve Normal pulmonic valve. Great Vessels Normal aortic root. The pulmonary artery is normal size. Inferior vena cava collapse with respiration. Pericardium/Pleural No pericardial effusion. MMode/2D Measurements & Calculations LVIDd: 4.7 cm IVSd: 0.94 cm LVAd ap4: 24.3 cm2 LVIDs: 2.7 cm LVPWd: 0.92 cm LVLd ap4: 7.9 cm FS: 42.9 % EDV(MOD-sp4): 62.2 ml EDV(sp4-el): 63.6 ml LVAs ap4: 11.7 cm2 LVLs ap4: 6.1 cm ESV(MOD-sp4): 19.2 ml ESV(sp4-el): 18.9 ml EF(MOD-sp4): 69.1 % EF(sp4-el): 70.2 % SV(MOD-sp4): 43.0 ml SV(sp4-el): 44.7 ml Doppler Measurements & Calculations TR max katy: 323.0 cm/sec TR max P.7 mmHg ECHO/Echo Complete Interpretation Summary Normal LV size. Left ventricular systolic function is normal. The estimated ejection fraction is 70 %. Pulmonary artery systolic pressure is 45 mmHg. Ordering Physician: Edison García Referring Physician: [facility] Performed By: Nurys Fajardo RDCS, ISABELA
[2023-05-14] MEDS: Enoxaparin 40 MG/0.4 ML Syringe SC (09:48)
[2023-05-14] MEDS: Lactated Ringers 1,000 ML 75 ML IV (09:48)
[2023-05-14 09:57] LABS: Troponin-I HS 21 pg/mL (3.0-78.0)
--- NOTE | 2023-05-14 10:37 | NURSING ---
Gave report to Kamryn MEZA
[2023-05-14 11:11] LABS: Troponin-I HS 21 pg/mL (3.0-78.0)
[2023-05-14] MEDS: 0.9% Saline Lock 10 ML Syringe IV (12:00)
[2023-05-14] MEDS: proMETHazine 25 MG/ML Syringe 12.5 MG IM (12:00)
[2023-05-14] MEDS: Haloperidol Lactate 5 MG/ML Vial 2 MG IV (12:00)
[2023-05-14] MEDS: QUEtiapine 25 MG Tablet PO ×2 (14:00→20:30)
[2023-05-14] MEDS: Ensure Plus High Protein 120 ML LIQUID PO ×2 (15:00→18:35)
[2023-05-14] MEDS: Potassium Chloride 40 MEQ in 0.45% Normal Saline 1,000 ML 75 MEQ IV (15:00)
[2023-05-14] MEDS: Ceftriaxone 1 GM/50 ML BAG IV (15:00)
[2023-05-14] MEDS: Azithromycin 250 MG Tablet 500 MG PO (15:00)
[2023-05-15] VITALS (7 sets, daily range): BP systolic 110–139; BP diastolic 50–70; PULSE 45–60; RESP 15–20; TEMP 36.4–36.9; O2SAT 95
[2023-05-15 06:35] LABS: Absolute Lymphocyte Count 3.09 X10^3/uL (0.83-4.51); Absolute Neutrophil Count 6.9 X10^3/uL (2.0-7.7); Basophil# 0.01 X10^3/uL; Basophil% 0.1 % (0-1); Eosinophil# 0.03 X10^3/uL; Eosinophils% 0.3 % (0-5); Hematocrit 40.6 % (40-54); Hemoglobin 13.7 g/dL (13.0-16.5); Lymphocyte # 3.09 X10^3/ul (0.83-4.51); Lymphocyte % 27.6 % (19-41); Mean Corp Hgb Conc 33.7 g/dL (32-36); Mean Corpuscular Hgb 32.6 pg (27.0-32.0); Mean Corpuscular Volume 96.7 fL (80-94); Mean Platelet Vol. 11.4 fl (6.2-12.0); Monocyte# 1.15 X10^3/uL; Monocyte% 10.3 % (0-10); NRBC Flagged by Analyzer 0 % (0-5); Neutrophil # 6.85 X10^3/uL (2.7-7.7); Neutrophil % 61.2 % (47-70); Platelet Count 238 K/mm3 (150-450); RBC Distribution Width CV 14.7 % (11.6-14.6); RBC Distribution Width SD 52.5 fl (35.1-43.9); White Blood Count 11.2 K/mm3 (4.4-11.0)
[2023-05-15 07:30] LABS: Anion Gap 3 (5-15); BUN 23 mg/dL (7-18); BUN/Creat Ratio 30.9 RATIO (10-20); Chloride 109 mmol/L (98-107); Creatinine, Serum 0.74 mg/dL (0.70-1.30); EST Glomerular Filtration Rate 108 mL/min (>60); Est Glom Filt Rate - Afr Amer 130 mL/min (>60); Estimated Creatinine Clearance 71.25 ml/min; Glucose 77 mg/dL (74-106); Potassium 3.7 mmol/L (3.5-5.1); Sodium Level 142 mmol/L (136-145); Thyroid Stim Hormone (TSH) 2.87 uIU/mL (0.358-3.74)
--- NOTE | 2023-05-15 07:31 | CON.PCM.CA_ITS ---
Assessment & Plan Assessment/Plan (1) High degree atrioventricular block: PLAN: He does have evidence of a 2-1 heart block which appears to be stable at this time. With his COVID positivity I will suggest that we wait a few more days before proceeding with a permanent pacemaker if the patient and his family are in full agreement. In addition he has external skin excoriations which makes me concerned about possible secondary infection. (2) COVID-19: PLAN: He has ongoing COVID-19 infection though he appears to be stable at this time with minimal oxygen requirements. He also appears to have a retrocardiac infiltrate and is currently being treated for pneumonia. Would not recommend placing a device with this ongoing. (3) Benign essential hypertension: PLAN: His blood pressure appears to be elevated and the plan will be to continue him on the current medical therapy. Thank you for allowing me to participate in the care of your patient. Please don't hesitate to call if any issues arise. HPI Consult Data Date of Consult: 05/15/23 HPI Narrative HPI Narrative: FELTON BARBER, is a 78 M who presents to the hospital with shortness of breath. I had initially seen him when he presented on the for consideration of a permanent pacemaker. He was noted to be in 2-1 heart block but was stable with a narrow QRS and adequate blood pressure. After extensive discussion with him and his son on the phone he decided against having a permanent pacemaker. Apparently at that time he was swabbed and was noted to be COVID-positive but this information was not communicated to us. He presents 4 days later with shortness of breath and it is not clear whether he called the ambulance or a family member. He however appears to be completely asymptomatic but still remains COVID-positive. His heart rate has been stable and cardiology was consulted once again for consideration of permanent pacemaker. He was actually quite belligerent on the telemetry floor and had a code sajan called and has been noted to have excoriations on both wrists. He is asymptomatic he is not clear about whether he wants a pacemaker placed or not. [facility], LATER [facility] Medical History Benign essential hypertension CHF (congestive heart failure) Chronic obstructive lung disease Hypertension Nicotine dependence, cigarettes, uncomplicated Third degree heart block Tobacco abuse Home Medications simvastatin 40 mg tablet 40 mg PO QHS cholesterol 08/14/14 [History Last Taken Unknown] tamsulosin 0.4 mg capsule 0.8 mg PO DAILY prostate 08/14/14 [History Last Taken Unknown] amlodipine 2.5 mg tablet 5 mg PO DAILY bp 08/15/14 [History Last Taken Unknown] budesonide-formoterol HFA 160 mcg-4.5 mcg/actuation aerosol inhaler 2 puff inhalation BID breathing 05/22/18 [History Last Taken Unknown] latanoprost (PF) 0.005 % eye drops 1 drp EACH EYE QHS eye drops 05/22/18 [History Last Taken Unknown] lisinopril 20 mg-hydrochlorothiazide 12.5 mg tablet 2 tab PO DAILY blood pressure 05/22/18 [History Last Taken Unknown] ipratropium 0.5 mg-albuterol 3 mg (2.5 mg base)/3 mL nebulization soln 3 ml inhalation Q4H PRN PRN Shortness Of Breath ##30 05/25/18 [Rx Last Taken Unknown] Allergy/AdvReac Type Severity Reaction Status Date / Time No Known Allergies Allergy Verified 09/11/21 01:37 Social History Smoking Status: Current every day smoker tobacco type: cigarettes Tobacco: How many years used: 60 second hand exposure: Yes alcohol intake: never substance use type: does not use ROS Review of Systems ROS Unobtainable: due to mental status Constitutional Constitutional: Denies fever(s) or weight loss Eyes Eyes: Reports systems reviewed and no addt'l complaints, except as documented ENT HEENT: Reports systems reviewed and no addt'l complaints, except as documented Cardiovascular Cardiovascular: Reports dyspnea at rest; Denies chest pain at rest, chest pain with activity, dyspnea on exertion, edema, palpitations or paroxysmal nocturnal dyspnea Respiratory/Chest Respiratory/Chest: Reports shortness of breath at rest; Denies dyspnea on exertion, productive cough or shortness of breath with exertion Gastrointestinal Gastrointestinal: Denies change in bowel habits, nausea, vomiting or weight changes Genitourinary Genitourinary: Denies difficulty urinating Musculoskeletal Musculoskeletal: Denies joint stiffness or muscle weakness Integumentary Integumentary: Denies lesions Neurologic Neurologic: Denies dizziness or syncope Psychiatric Psychiatric: Denies anxiety Endocrine Endocrinology: Denies excessive sweating or fatigue Hematologic/Lymphatic Hematologic/Lymphatic: Denies anemia Allergic/Immunologic Allergic/Immunologic: Denies seasonal rhinorrhea Risk Stratification Risk Stratification Applicable: No Objective Data Vital Signs: Vital Signs Temp Pulse Resp BP Pulse Ox O2 Del Method O2 Flow Rate 98.5 F 45 L 16 114/50 L 95 Nasal Cannula 2 05/15/23 04:33 05/15/23 04:33 05/15/23 04:33 05/15/23 04:33 05/15/23 04:05/15/23 07:05 05/15/23 07:05 Oxygen Flow Rate (L/min) 2 Oxygen Delivery Method Nasal Cannula Weight: 158 lb 11.725 oz Body Mass Index (BMI) 24.1 Intake & Output: Intake and Output for Last 24 Hours 05/13/23 05/14/23 05/15/23 23:59 23:59 23:59 Intake Total 1511.25 / 1611.25 1120 / 1120 Output Total 860 / 860 Balance 651.25 / 751.25 1120 / 1120 Lab / Micro Data 05/15/23 06:20 05/15/23 06:20 Labs: Laboratory Results - last 24 hr 05/14/23 04:28: Phosphorus 2.1 L, Magnesium 2.3, B-Natriuretic Peptide 201.7 H 05/14/23 09:25: Troponin I High Sens 21 05/14/23 10:40: Troponin I High Sens 21 05/15/23 06:20: WBC 11.2 H, RBC 4.20 L, Hgb 13.7, Hct 40.6, MCV 96.7 H, MCH 32.6 H, MCHC 33.7, RDW Std Deviation 52.5 H, RDW Coeff of Tanja 14.7 H, Plt Count 238, MPV 11.4, Immature Gran % (Auto) 0.500, Neut % (Auto) 61.2, Lymph % (Auto) 27.6, [place] % (Auto) 10.3 H, Eos % (Auto) 0.3, Baso % (Auto) 0.1, Absolute Neuts (auto) 6.9, Absolute Lymphs (auto) 3.09, Nucleated RBC % 0, Sodium 142, Potassium 3.7, Chloride 109 H, Carbon Dioxide 30.0, Anion Gap 3 L, BUN 23 H, Creatinine 0.74, Estim Creat Clear Calc 71.25, Est GFR (MDRD) Af Amer 130, Est GFR (MDRD) Non-Af 108, BUN/Creatinine Ratio 30.9 H, Glucose 77, Calcium 8.0 L, TSH 2.87 Micro: Microbiology 05/14/23 08:48 Mucosa - Nose SARS-CoV-2, Influenza & RSV (PCR) - Final SARS-CoV-2 (COVID 19 PCR) Rhythm Strip Rhythm Strip: Bradycardia Rate: 45 Ectopy: PVC(s) Cardiology Labs/Tests 05/14/23 04:28: Phosphorus 2.1 L, Magnesium 2.3, B-Natriuretic Peptide 201.7 H 05/15/23 06:20: WBC 11.2 H, RBC 4.20 L, Hgb 13.7, Hct 40.6, MCV 96.7 H, MCH 32.6 H, MCHC 33.7, Plt Count 238, MPV 11.4, Immature Gran % (Auto) 0.500, Neut % (Au to) 61.2, Lymph % (Auto) 27.6, [place] % (Auto) 10.3 H, Eos % (Auto) 0.3, Baso % (Auto) 0.1, Absolute Neuts (auto) 6.9, Nucleated RBC % 0, Sodium 142, Potassium 3.7, Chloride 109 H, Carbon Dioxide 30.0, Anion Gap 3 L, BUN 23 H, Creatinine 0.74, Est GFR (MDRD) Af Amer 130, Est GFR (MDRD) Non-Af 108, BUN/Creatinine Ratio 30.9 H, Glucose 77, Calcium 8.0 L Rhythm: EKG: ECHO: Stress Test: Cardiac Cath: PCI: CT Surgery: Holter monitor: EPS: PPM: CXR: Chest CT Scan: Radiography Diagnostic Testing: Radiology Impression Chest X-Ray 05/14/23 03:57 IMPRESSION: Increased retrocardiac opacity which could be atelectasis or pneumonia. Electronically Signed: Ashu Ellis MD at 5:55 EDT , Echocardiogram 05/14/23 09:04 Interpretation Summary Normal LV size. Left ventricular systolic function is normal. The estimated ejection fraction is 70 %. Pulmonary artery systolic pressure is 45 mmHg. Ordering Physician: Edison García Referring Physician: [facility] Performed By: Nurys Fajardo, TREVA, RVT
--- NOTE | 2023-05-15 08:48 | PCM.PN.HOSP ---
Reason for Visit Reason for Visit: Diagnoses Essential (primary) hypertension (05/14/23) Other atrioventricular block (05/14/23) COVID-19 (05/14/23) Subjective Subjective Asking why the pacemaker cannot be placed today. Objective Data Objective Data Vital Signs: Vital Signs Temp Pulse Resp BP Pulse Ox O2 Del Method O2 Flow Rate 36.9 C 45 L 16 114/50 L 95 Nasal Cannula 2 05/15/23 04:33 05/15/23 04:33 05/15/23 04:33 05/15/23 04:33 05/15/23 04:33 05/15/23 07:05 05/15/23 07:05 Oxygen Flow Rate (L/min) 2 Oxygen Delivery Method Nasal Cannula Weight: 72 kg Body Mass Index (BMI) 24.1 Intake & Output: Intake and Output for Last 24 Hours 05/13/23 05/14/23 05/15/23 23:59 23:59 23:59 Intake Total 1511.25 / 1611.25 1120 / 1120 Output Total 860 / 860 Balance 651.25 / 751.25 1120 / 1120 Lab / Micro Data 05/15/23 06:20 05/15/23 06:20 Labs: Laboratory Results - last 24 hr 05/14/23 09:25: Troponin I High Sens 21 05/14/23 10:40: Troponin I High Sens 21 05/15/23 06:20: WBC 11.2 H, RBC 4.20 L, Hgb 13.7, Hct 40.6, MCV 96.7 H, MCH 32.6 H, MCHC 33.7, RDW Std Deviation 52.5 H, RDW Coeff of Tanja 14.7 H, Plt Count 238, MPV 11.4, Immature Gran % (Auto) 0.500, Neut % (Auto) 61.2, Lymph % (Auto) 27.6, [place]ke % (Auto) 10.3 H, Eos % (Auto) 0.3, Baso % (Auto) 0.1, Absolute Neuts (auto) 6.9, Absolute Lymphs (auto) 3.09, Nucleated RBC % 0, Sodium 142, Potassium 3.7, Chloride 109 H, Carbon Dioxide 30.0, Anion Gap 3 L, BUN 23 H, Creatinine 0.74, Estim Creat Clear Calc 71.25, Est GFR (MDRD) Af Amer 130, Est GFR (MDRD) Non-Af 108, BUN/Creatinine Ratio 30.9 H, Glucose 77, Calcium 8.0 L, TSH 2.87 Micro: Microbiology 05/14/23 08:48 Mucosa - Nose SARS-CoV-2, Influenza & RSV (PCR) - Final SARS-CoV-2 (COVID 19 PCR) Radiography Diagnostic Testing: Radiology Impression Chest X-Ray 05/14/23 03:57 IMPRESSION: Increased retrocardiac opacity which could be atelectasis or pneumonia. Electronically Signed: Ashu Ellis MD at 5:55 EDT , Echocardiogram 05/14/23 09:04 Interpretation Summary Normal LV size. Left ventricular systolic function is normal. The estimated ejection fraction is 70 %. Pulmonary artery systolic pressure is 45 mmHg. Ordering Physician: Edison García Referring Physician: [facility] Performed By: Nurys Fajardo, TREVA, RVT Rhythm Strip Rhythm Strip: Bradycardia Rate: 45 Ectopy: PVC(s) Physical Exam Const alert Constitutional Narrative: Oriented to self. Did not know where he was and the date was May 11. Was pleasant on first encounter but after explained to him that he would not have the pacemaker done today and it is unclear when that would actually be done safely, he did start becoming angry. Resp normal respiratory effort, no retractions, no use of accessory muscles and clear to auscultation bilaterally Cardio regular rate, regular rhythm, S1 normal heart sound and S2 normal heart sound GI normal to inspection, nondistended, normoactive bowel sounds, soft to palpation, non-tender and non-distended Assessment & Plan Assessment/Plan (1) High degree atrioventricular block: (2) COVID-19: PLAN: Plan High degree AV block Cardiology consulted, permanent place maker to be placed when the patient is more appropriate. Complicating issues are his encephalopathy. COVID 19 subsequent visit diagnosed 3, still positive on the . chronic changes on CXR. I dont appreciate any retrocardiac infiltrates as mentioned by radiology. Xray appears to be poor inspiratory effort. Encephalopathy likely multifactorial. prednisone discontinued started on QHS quetiapine Chronic conditions: Hypertension: Blood pressure is controlled. Chronic nicotine use, smoker, 2 packs/day for about [address] Steel in pulmonary clinic. During previous clinic visit he was counseled to quit smoking DVT prophylaxis on Lovenox Charges/Coding Visit Charges Inpatient E&M: 94586 Subs Hosp L2
[2023-05-15] MEDS: Ceftriaxone 1 GM/50 ML BAG IV (09:44)
[2023-05-15] MEDS: Ensure Plus High Protein 120 ML LIQUID PO ×4 (09:44→19:58)
[2023-05-15] MEDS: Acetaminophen 325 MG Tablet 650 MG PO (09:45)
[2023-05-15] MEDS: Azithromycin 250 MG Tablet 500 MG PO (09:45)
[2023-05-15] MEDS: QUEtiapine 25 MG Tablet PO ×2 (09:45→19:58)
[2023-05-15] MEDS: Enoxaparin 40 MG/0.4 ML Syringe SC (09:47)
[2023-05-15] MEDS: Ipratropium/Albuterol Sulfate 3 ML AMPUL.NEB INHALATION ×3 (10:28→21:48)
--- NOTE | 2023-05-15 11:35 | CM.UR ---
SUSANA VAZQUEZ Assessment Pt is displaying some confusion and is forgetful and INUPIAT. Code Julia was called on this pt yesterday for increased agitation and aggression towards staff. At this time, this RN CM calls the pt sister (Fatmata) on file who is agreeable to answering this RN TAYLOR questions. Pt sister states she is at home now but was in the hospital yesterday to see the pt. SUSANA VAZQUEZ introduced self and role at [facility], pt sister voices understanding. Care providers, pharmacy, and demographics verified. Admitting dx: Bradycardia LACE Strata: 2 [facility] [place] [facility] [place] Specialists: Denies Preferred Pharmacy: [facility] during this stay Insurance: [facility], [facility] A/B Prescription Benefit: Yes LNOK: Fatmata Macias (Sister), Isaias Ortiz (son) Living Arrangements: Pt lives alone in a small ground level apartment with a flat entrance. Pt sister states that the pt house is a mess. SW updated. ADLs/IADLs: Pt sister states that the pt is becoming more dependant with ADLs. Transportation: Pt sister states the pt does drive but only short distances. Pt sister states that the pt does not have anyone else that is able to drive him. DME: Nebulizer. Pt sister states the pt does not have any other DME at home. HHC/SNF: Denies history. Pt sister states that she is agreeable for the pt to go to a SNF for further therapy/ treatment. Plan: TBD. PT was unable to see the pt yesterday d/t the code julia. SW updated that the pt may need SNF placement. Pt sister states that the pt memory is declining. CM/ SW to follow therapy. CM/SW to follow for safe DC from [facility]. Lucero Peck RN, CM
--- NOTE | 2023-05-15 15:04 | NURSING ---
spoke with Infection Control this am. clarified when patient can come out of isolation. tested positive 05/08 but had sx 1 week prior. Per infection control can come out of isolation on friday
[2023-05-15 18:19] LABS: M R Staph aureus DNA By PCR Negative (Negative); Probe Check PASS; Specimen Processing Control PASS
[2023-05-16] VITALS (16 sets, daily range): BP systolic 121–158; BP diastolic 55–86; PULSE 47–76; RESP 16–22; TEMP 36.1–36.8; O2SAT 93–96
--- NOTE | 2023-05-16 07:38 | PN.HOSP_ITS ---
Reason for Visit Reason for Visit: Diagnoses Essential (primary) hypertension (05/14/23) Other atrioventricular block (05/14/23) COVID-19 (05/14/23) Objective Data Objective Data Vital Signs: Vital Signs Temp Pulse Resp BP Pulse Ox O2 Del Method O2 Flow Rate 36.8 C 47 L 16 121/55 H 95 Nasal Cannula 2 05/16/23 04:24 05/16/23 04:24 05/16/23 04:24 05/16/23 04:24 05/16/23 04:24 05/16/23 04:24 05/16/23 04:24 Oxygen Flow Rate (L/min) 2 Oxygen Delivery Method Nasal Cannula Weight: 72 kg Body Mass Index (BMI) 24.1 Intake & Output: Intake and Output for Last 24 Hours 05/14/23 05/15/23 05/16/23 23:59 23:59 23:59 Intake Total 1511.25 / 1611.25 2045 / 2285 240 / 240 Output Total 860 / 860 375 / 375 Balance 651.25 / 751.25 1670 / 1910 240 / 240 Lab / Micro Data 05/15/23 06:20 05/15/23 06:20 Labs: Laboratory Results - last 24 hr 05/15/23 15:35: MRSA (PCR) Negative Micro: Microbiology 05/14/23 08:48 Mucosa - Nose SARS-CoV-2, Influenza & RSV (PCR) - Final SARS-CoV-2 (COVID 19 PCR) Rhythm Strip Rhythm Strip: Bradycardia Rate: 45 Ectopy: PVC(s) Assessment & Plan Assessment/Plan (1) High degree atrioventricular block: (2) COVID-19: PLAN: Plan High degree AV block * Cardiology consulted, permanent place maker to be placed when the patient is more appropriate. Complicating issues are his encephalopathy. COVID 19 * subsequent visit * diagnosed 05/08, still positive on the . * chronic changes on CXR. I dont appreciate any retrocardiac infiltrates as mentioned by radiology. Xray appears to be poor inspiratory effort. Encephalopathy * likely multifactorial. * prednisone discontinued * started on QHS quetiapine Chronic conditions: * Hypertension: Blood pressure is controlled despite not on his normal antih ypertensives (amlopidine, Lisinopril/HCTZ) * Chronic nicotine use, smoker, 2 packs/day for about [address] Steel in pulmonary clinic. During previous clinic visit he was counseled to q uit smoking DVT prophylaxis on Lovenox
--- NOTE | 2023-05-16 07:38 | PCM.PN.HOSP ---
Reason for Visit Reason for Visit: Diagnoses Essential (primary) hypertension (05/14/23) Other atrioventricular block (05/14/23) COVID-19 (05/14/23) Subjective Subjective Anxious about having the pacemaker placement. Objective Data Objective Data Vital Signs: Vital Signs Temp Pulse Resp BP Pulse Ox O2 Del Method O2 Flow Rate 36.8 C 47 L 16 121/55 H 95 Nasal Cannula 2 05/16/23 04:24 05/16/23 04:24 05/16/23 04:24 05/16/23 04:24 05/16/23 04:24 05/16/23 04:24 05/16/23 04:24 Oxygen Flow Rate (L/min) 2 Oxygen Delivery Method Nasal Cannula Weight: 72 kg Body Mass Index (BMI) 24.1 Intake & Output: Intake and Output for Last 24 Hours 05/14/23 05/15/23 05/16/23 23:59 23:59 23:59 Intake Total 1511.25 / 1611.25 2045 / 2285 240 / 240 Output Total 860 / 860 375 / 375 Balance 651.25 / 751.25 1670 / 1910 240 / 240 Lab / Micro Data 05/15/23 06:20 05/15/23 06:20 Labs: Laboratory Results - last 24 hr 05/15/23 15:35: MRSA (PCR) Negative Micro: Microbiology 05/14/23 08:48 Mucosa - Nose SARS-CoV-2, Influenza & RSV (PCR) - Final SARS-CoV-2 (COVID 19 PCR) Rhythm Strip Rhythm Strip: Bradycardia Rate: 45 Ectopy: PVC(s) Physical Exam Const alert and no apparent distress HEENT head/scalp atraumatic and moist oral mucous membranes Resp normal respiratory effort, no retractions, no use of accessory muscles and clear to auscultation bilaterally Cardio regular rate, regular rhythm, S1 normal heart sound and S2 normal heart sound GI normal to inspection, nondistended, normoactive bowel sounds, soft to palpation, non-tender and non-distended Extremity normal to inspection and full ROM Neuro Sensorium / Orientation: awake and alert Assessment & Plan Assessment/Plan (1) High degree atrioventricular block: (2) COVID-19: PLAN: Plan High degree AV block Cardiology consulted, permanent place maker to be placed when the patient is more appropriate. Complicating issues are his encephalopathy. COVID 19 subsequent visit diagnosed 05/08, still positive on the . Was ill 1-week prior to positive test. Now taken out of isolation. chronic changes on CXR. I dont appreciate any retrocardiac infiltrates as mentioned by radiology. Xray appears to be poor inspiratory effort. Encephalopathy likely multifactorial. prednisone discontinued started on QHS quetiapine Chronic conditions: Hypertension: Blood pressure is controlled despite not on his normal antihypertensives (amlopidine, Lisinopril/HCTZ) Chronic nicotine use, smoker, 2 packs/day for about [address] Steel in pulmonary clinic. During previous clinic visit he was counseled to quit smoking DVT prophylaxis on Lovenox Charges/Coding Visit Charges Inpatient E&M: 74058 Subs Hosp L2
--- NOTE | 2023-05-16 10:23 | CASEMGMT ---
SW spoke with the [facility] BRIA Meyers regarding patient. Patient is not service connected, but he is eligible for services in the home. SW met with patient. Introduced self and role at [facility]. SW explained [facility] offering help at home. Patient was open to SW making a referral to [facility]. SW also spoke with patient about his d/c plan. Patient stated he is going home. Patient declines going anywhere for rehab. Patient did well with therapy, however he will have his arm in a sling for several weeks so how he does with PT/OT could change. BRIA and RN CM to follow. Patient did give BRIA permission to talk with his sister. Maryjo Min [employer]INE [employer] ENGINEER NANCY
--- NOTE | 2023-05-16 10:34 | CASEMGMT ---
BRIA called patient's sister, Fatmata. BRIA explained SW spoke with patient about getting help at home through the [facility] and patient is agreeable. BRIA explained patient did well with therapy so he may not need SNF. Patient was not agreeable to SNF. However, BRIA explained that patient after having a pacemaker placed patient will have his arm in a sling for a few weeks so he may need more help. Fatmata asked if patient mentioned him going home with her. BRIA said patient did not, but that might be a good idea. Fatmata would like a phone call when a time is known for patient's pacer insertion. BRIA will notify RN. Fatmata thanked BRIA for the update. BRIA faxed the [place] GE form to BRIA Meyers at the [facility] clinic and requested aide services for patient. Maryjo CRUZ
[2023-05-16] MEDS: Ipratropium/Albuterol Sulfate 3 ML AMPUL.NEB INHALATION ×3 (10:44→20:23)
[2023-05-16] MEDS: QUEtiapine 25 MG Tablet PO ×2 (14:11→20:56)
[2023-05-16] MEDS: Azithromycin 250 MG Tablet 500 MG PO (14:12)
[2023-05-16] MEDS: Ceftriaxone 1 GM/50 ML BAG IV (14:22)
--- NOTE | 2023-05-16 14:39 | DCINST_ITS ---
Discharge Instructions Diet Discharge Diet: No restrictions (as you feel able. No excessive stretching. No lifting your arm over your head (keep elbow below shoulder level) until seen for your pacemaker check. Do not lift your elbow away from your side until you are seen for your first visit. Keep the arm sling on if it helps remind you not to lift your arm.) Activity Discharge Activity: May Not Drive May shower in (days): 2 Additional Activity Instructions:: May shower or bathe on [day 3]. Do not scrub the incision or soak in the tub. Just wash with soap and let the water run over the incision. Gently pat dry with towel. Medications: Take your pain medication as directed. Refer to your discharge instruction sheet for a list of medications you are to take. Dressing / Incision Call your doctor if your incision/area has: Continuous Slow Oozing, Sudden Increased Bleeding, Increased Pain/ Swelling, Increased Redness, Foul Smelling Discharge and Swelling at the incision site Call your doctor if you observe: Fever of 101 or Higher, Shortness of breath, Dizziness, Fainting spells, Swelling in the ankles, Chest pain, Prolonged hiccupping and Increased palpitations (irregular heartbeat) Suture Line Care: Avoid Pulling/Pushing and Avoid Pinching/Bending Additional Dressing/Incision Instructions:: When dressing is removed, wash and dry incision. Keep covered with a light bandage if it is rubbing against your clothing. Do not cover the incision with an airtight bandage. Change the bandage daily. Do not remove steri strips. The strips will fall off on their own. Follow Up Care Please Follow Up With: El Giang MD When: Pacemaker follow-up in the pacemaker clinic on May 21 at 2 PM. Test Results: Test results from this visit will be discussed in further detail at your follow- up appointment, if applicable. Discharge Plan Admission Admit Date/Time: 05/14/23 08:07 Attending Provider: Bc Moore Primary Care Provider: [place] Consulting Providers: Abhijit Montenegro; Edison García Discharge Orders/Prescriptions Prescriptions: No Action simvastatin 40 MG tablet 40 mg PO QHS tamsulosin 0.4 MG capsule 0.8 mg PO DAILY amlodipine 2.5 MG tablet 5 mg PO DAILY Patient Comments: PT UNSURE OF DOSE budesonide-formoterol 1 INHALER inhaler 2 puff inhalation BID lisinopril-hydrochlorothiazide 1 EACH tablet 2 tab PO DAILY latanoprost (PF) 7.5 ML drops 1 drp EACH EYE QHS ipratropium-albuterol 3 ML solution for nebulization 3 ml inhalation Q4H PRN PRN (Reason: Shortness Of Breath) Qty: 30 0RF Referrals / Follow [facility]: [facility] [Primary [facility] Provider[facility] -
--- NOTE | 2023-05-16 14:40 | CASEMGMT ---
BRIA met with patient's sister Fatmata and patient. Patient had just returned from a procedure so he was not completely alert and oriented. Fatmata is concerned about patient going home. BRIA verbalized understanding. BRIA explained to Fatmata like BRIA told her on the phone earlier we will have to see how patient does with therapy while he only has the use of 1 arm. BRIA also explained depending on patient's orientation status he will have to be in agreement. BRIA told Fatmata we can provide them with a list. BRIA told Fatmata patient will likely be here until Friday as a referral will need to be made once they pick facilities. Maryjo Min AND [employer]OLLEY NANCY
--- NOTE | 2023-05-16 14:47 | CASEMGMT ---
Discharge Planning A list of?SNF providers including quality and resource use data and consistent with the patient's preferred geographic region, medical needs, and insurance network were printed and provided from the [employer] Guide. Zahra [place], Discharge Planning Asst.
[2023-05-16] MEDS: Senna/Docusate Sodium 1 Tablet 2 TABLET PO (20:56)
[2023-05-16] MEDS: Acetaminophen 325 MG Tablet 650 MG PO (20:57)
[2023-05-17] VITALS (18 sets, daily range): BP systolic 130–147; BP diastolic 65–81; PULSE 50–92; RESP 16–19; TEMP 36.4–36.7; O2SAT 90–97
[2023-05-17] MEDS: Ipratropium/Albuterol Sulfate 3 ML AMPUL.NEB INHALATION ×5 (00:07→19:42)
--- NOTE | 2023-05-17 05:55 | RAD_ITS ---
STUDY: X-RAY CHEST REASON FOR EXAM: Male, 78 years old. Post permanant ICD/Pacemaker -- inspiration/expiration. Arms Down. Wet read to TECHNIQUE: PA and lateral views of the chest. COMPARISON: May 14, 2023 FINDINGS: 1. A new left chest cardiac device with right heart leads is present. No pneumothorax is seen 2. Redemonstration of chronic interstitial scarring in the bilateral lung bases. Remaining lung laird are clear 3. Normal heart size 4. Stable osseous structures 5. Stable mediastinal contours There is no demonstrated abnormality of the visualized soft tissue structures of the upper abdomen. RAD/Chest PA and Lateral IMPRESSION: * A new left chest cardiac device with right heart leads is present. No pneumothorax is seen Electronically Signed: Yan Velazquez MD at 9:00 EDT ,
--- NOTE | 2023-05-17 07:48 | PN.HOSP_ITS ---
Reason for Visit Reason for Visit: Diagnoses Essential (primary) hypertension (05/14/23) Other atrioventricular block (05/14/23) COVID-19 (05/14/23) Subjective Subjective Anxious to leave and go home. Objective Data Objective Data Vital Signs: Vital Signs Temp Pulse Resp BP Pulse Ox O2 Del Method O2 Flow Rate 36.4 C L 66 16 146/81 H 96 Nasal Cannula 2 05/17/23 03:05 05/17/23 03:05 05/17/23 03:05 05/17/23 03:05 05/17/23 05:38 05/17/23 05:38 05/17/23 05:38 Oxygen Flow Rate (L/min) 2 Oxygen Delivery Method Nasal Cannula Weight: 72 kg Body Mass Index (BMI) 24.1 Intake & Output: Intake and Output for Last 24 Hours 05/15/23 05/16/23 05/17/23 23:59 23:59 23:59 Intake Total 2045 / 2285 290 / 290 Output Total 375 / 375 150 / 150 Balance 1670 / 1910 140 / 140 Lab / Micro Data 05/15/23 06:20 05/15/23 06:20 Micro: Microbiology 05/15/23 20:05 Urine, Clean Catch Legionella Antigen - Final 05/15/23 20:05 Urine, Clean Catch Streptococcus pneumoniae Antigen (M - Final 05/14/23 15:17 Blood Culture (Wb) - Anticubital Left Blood Culture - Preliminary No growth in 48 hours. 05/14/23 15:10 Blood Culture (Wb) - Arm Left Blood Culture - Preliminary No growth in 48 hours. 05/14/23 08:48 Mucosa - Nose SARS-CoV-2, Influenza & RSV (PCR) - Final SARS-CoV-2 (COVID 19 PCR) Rhythm Strip Rhythm Strip: Bradycardia Rate: 45 Ectopy: PVC(s) Physical Exam Const alert and no apparent distress HEENT head/scalp atraumatic and moist oral mucous membranes Resp normal respiratory effort and no retractions Skin Skin Narrative: left chest pacemaker site with guaze overlying w/o erythema or ecchymosis. Neuro Sensorium / Orientation: awake and alert Psych affect normal Assessment & Plan Assessment/Plan (1) High degree atrioventricular block: (2) COVID-19: PLAN: Plan High degree AV block * Cardiology placed PPM w atrial and ventricular leads on 05/15. COVID 19 * subsequent visit * diagnosed 05/08, still positive on the . Was ill 1-week prior to positive test. Now taken out of isolation. * chronic changes on CXR. I dont appreciate any retrocardiac infiltrates as mentioned by radiology. Xray appears to be poor inspiratory effort. Encephalopathy * likely multifactorial. * prednisone discontinued * started on QHS quetiapine Chronic conditions: * Hypertension: Blood pressure is controlled despite not on his normal antihypertensives (amlopidine, Lisinopril/HCTZ) * Chronic nicotine use, smoker, 2 packs/day for about [address] Steel in pulmonary clinic. During previous clinic visit he was counseled to quit smoking DVT prophylaxis on Lovenox Disposition: TBD. Concerning pt may require SNF given limitations with his arm post-PPM placement. Await PT/OT reeval. Charges/Coding Visit Charges Inpatient E&M: 41271 Subs Hosp L2
[2023-05-17] MEDS: Enoxaparin 40 MG/0.4 ML Syringe SC (10:05)
[2023-05-17] MEDS: QUEtiapine 25 MG Tablet PO ×2 (10:06→21:25)
[2023-05-17] MEDS: Azithromycin 250 MG Tablet 500 MG PO (10:08)
[2023-05-17] MEDS: Acetaminophen 325 MG Tablet 650 MG PO ×2 (10:15→17:45)
[2023-05-17] MEDS: Ceftriaxone 1 GM/50 ML BAG IV (10:29)
[2023-05-17] MEDS: Ensure Plus High Protein 120 ML LIQUID PO ×2 (10:34→14:43)
[2023-05-17] MEDS: 0.9% Saline Lock 10 ML Syringe IV ×2 (10:42→12:34)
--- NOTE | 2023-05-17 13:00 | CASEMGMT ---
Social Work This proposal lead writer hide message left at nurses station indicating on the nursing home facility provided to the patient, nursing home facility choices as follows: [facility] and then [facility]. Patient sister seemingly wrote on the nursing facility list that patient changes his mind again and wants to go through the [facility] for help at home this would be okay. Sister indicated that patient continues to change minds throughout the day on Friday. This proposal lead writer met with patient in room, introducing to self and social work role. This proposal lead writer broached with patient, that patient did indeed make choices for nursing home facility. Patient reports that can't really remember yesterday too much. Reports desire to be able to go back home. This proposal lead writer explored with patient safety concerns, and reinforced that until patient is able to have full range of his arm, there is concern about patient returning home. Reviewed with patient the choices that were identified, and patient looked at the list. Patient gave this proposal lead writer permission to make referrals but did indicate preference if possible was to return home. Patient also stated I agree I should not go home if it's not safe. Referral sent to both nursing facilities via care port. Plan: anticipate short-term nursing home facility. Pending referrals at the [facility]. -JOSE Matt, [employer]YST[employer]ER *This note was generated with [employer] dictation software. It may contain incorrect words, spelling, and punctuation that were not noted in review of the chart prior to signing*
--- NOTE | 2023-05-17 20:49 | EKG12_ITS ---
Test Reason : rythm change Blood Pressure : / mmHG Vent. Rate : 058 BPM Atrial Rate : 058 BPM P-R Int : 146 ms QRS Dur : 072 ms QT Int : 504 ms P-R-T Axes : 000 017 241 degrees QTc Int : 494 ms Atrial sensing, ventricular non capture Confirmed by KAYLI BARRIOS, BRISSA ([id number]), field map editor CATHERINE HORVATH ([id number]) on 05/20/2023 6:53:44 AM Referred By: Ricky Confirmed By:BRISSA MILAN MD
--- NOTE | 2023-05-17 23:05 | RAD_ITS ---
INDICATION: post pacemaker leads placement -- portable EXAMINATION/TECHNIQUE: X-RAY - XR Chest 1 View COMPARISON: Chest radiograph earlier same day, 0633 hours, 05/09/2023, 05/14/2023 and 11/22/2019. Findings: Single frontal view of the chest. LUNG PARENCHYMA: Again noted streaky bibasilar atelectasis versus other airspace disease, little change from prior. PLEURA: No pleural effusion. No pneumothorax. HEART/GREAT VESSELS: Left chest multilead pacemaker device in place. Cardiomediastinal silhouette is borderline enlarged. BONES: Osseous structures are unremarkable for age. RAD/Chest 1 View (Portable) IMPRESSION: Again noted streaky bibasilar atelectasis versus other airspace disease, little change from earlier same day. Recommend follow-up to resolution. Electronically Signed: Christiano Jackson MD at 23:24 EDT ,
[2023-05-18] VITALS (13 sets, daily range): BP systolic 115–151; BP diastolic 67–84; PULSE 61–75; RESP 15–20; TEMP 36.5–36.9; O2SAT 87–97
[2023-05-18] MEDS: Ipratropium/Albuterol Sulfate 3 ML AMPUL.NEB INHALATION ×5 (03:03→20:07)
--- NOTE | 2023-05-18 07:49 | PN.HOSP_ITS ---
Reason for Visit Reason for Visit: Diagnoses Essential (primary) hypertension (05/14/23) Other atrioventricular block (05/14/23) COVID-19 (05/14/23) Subjective Subjective Pt denies complaints. Atrial lead no longer working. Pt apparently has been moving his left arm relatively freely despite sling. Objective Data Objective Data Vital Signs: Vital Signs Temp Pulse Resp BP Pulse Ox O2 Del Method O2 Flow Rate 36.6 C 75 18 142/83 H 94 Nasal Cannula 2 05/18/23 02:48 05/18/23 07:30 05/18/23 07:30 05/18/23 02:48 05/18/23 07:30 05/18/23 07:30 05/18/23 07:30 Oxygen Flow Rate (L/min) 2 Oxygen Delivery Method Nasal Cannula Weight: 72 kg Body Mass Index (BMI) 24.1 Intake & Output: Intake and Output for Last 24 Hours 05/16/23 05/17/23 05/18/23 23:59 23:59 23:59 Intake Total 290 / 290 690 / 690 Output Total 150 / 150 Balance 140 / 140 690 / 690 Lab / Micro Data 05/15/23 06:20 05/15/23 06:20 Micro: Microbiology 05/15/23 20:05 Urine, Clean Catch Legionella Antigen - Final 05/15/23 20:05 Urine, Clean Catch Streptococcus pneumoniae Antigen (M - Final 05/14/23 15:17 Blood Culture (Wb) - Anticubital Left Blood Culture - Preliminary No growth in 48 hours. 05/14/23 15:10 Blood Culture (Wb) - Arm Left Blood Culture - Preliminary No growth in 48 hours. 05/14/23 08:48 Mucosa - Nose SARS-CoV-2, Influenza & RSV (PCR) - Final SARS-CoV-2 (COVID 19 PCR) Radiography Diagnostic Testing: Radiology Impression Chest X-Ray 05/17/23 05:55 IMPRESSION: * A new left chest cardiac device with right heart leads is present. No pneumothorax is seen Electronically Signed: Yan Velazquez MD at 9:00 EDT , Chest X-Ray 03/16/24 23:05 IMPRESSION: Again noted streaky bibasilar atelectasis versus other airspace disease, little change from earlier same day. Recommend follow-up to resolution. Electronically Signed: Christiano Jackson MD at 23:24 EDT , Rhythm Strip Rhythm Strip: Bradycardia Rate: 45 Ectopy: PVC(s) Physical Exam Const alert and no apparent distress Resp normal respiratory effort, no retractions, no use of accessory muscles and clear to auscultation bilaterally Cardio regular rate, regular rhythm, S1 normal heart sound and S2 normal heart sound GI normal to inspection, nondistended, normoactive bowel sounds, soft to palpation and non-tender Extremity Extremity Narrative: left arm loosely in sling. Assessment & Plan Assessment/Plan (1) High degree atrioventricular block: (2) COVID-19: PLAN: Plan High degree AV block * Cardiology placed PPM w atrial and ventricular leads on 05/15. * atrial lead not pacing. Per RN, cardiology aware and will reassess. Concern pt may have dislodged lead with moving his arm freely. COVID 19 * subsequent visit * diagnosed 05/08, still positive on the . Was ill 1-week prior to positive test. Now taken out of isolation. * chronic changes on CXR. I dont appreciate any retrocardiac infiltrates as mentioned by radiology. Xray appears to be poor inspiratory effort. Encephalopathy * resolved. likely multifactorial. * prednisone discontinued * started on QHS quetiapine Chronic conditions: * Hypertension: Blood pressure is controlled despite not on his normal anti hypertensives (amlopidine, Lisinopril/HCTZ) * Chronic nicotine use, smoker, 2 packs/day for about [address] Steel in pulmonary clinic. During previous clinic visit he was counseled to quit smoking DVT prophylaxis on Lovenox Disposition: TBD. Plan for SNF when ready. Charges/Coding Visit Charges Inpatient E&M: 87698 Subs Hosp L2
[2023-05-18] MEDS: Azithromycin 250 MG Tablet 500 MG PO (09:41)
[2023-05-18] MEDS: Enoxaparin 40 MG/0.4 ML Syringe SC (09:41)
[2023-05-18] MEDS: Acetaminophen 325 MG Tablet 650 MG PO ×2 (09:41→17:11)
[2023-05-18] MEDS: QUEtiapine 25 MG Tablet PO ×2 (09:41→22:34)
[2023-05-18] MEDS: Ceftriaxone 1 GM/50 ML BAG IV (09:50)
--- NOTE | 2023-05-18 12:29 | PCM.PN.BLA ---
Progress Note Last evening's events noted. Ventricular lead without capture. Device interrogated. Output increased. On demand A-V sensing and pacing with good capture this morning. Check PA and lateral chest x-ray for lead position.
--- NOTE | 2023-05-18 12:31 | RAD_ITS ---
STUDY: X-RAY CHEST REASON FOR EXAM: Male, 78 years old. Chest pain/pressure TECHNIQUE: PA and lateral views of the chest. COMPARISON: 05/17/2023 FINDINGS: Satisfactory appearance of the pacemaker leads. EKG leads overlie the chest. These are mildly hyperexpanded with stable bibasilar opacifications, likely atelectasis. Overall, no interval change since the previous study. Normal size heart. Normal mediastinum and lori. Normal visualized pulmonary arteries. Normal visualized aortic arch and descending thoracic aorta. Normal visualized thoracic spine. Normal visualized ribs, clavicles, and shoulders. There is no demonstrated abnormality of the visualized soft tissue structures of the upper abdomen. RAD/Chest PA and Lateral IMPRESSION: No interval change Electronically Signed: Yuan Rivera MD at 15:00 EDT ,
[2023-05-18] MEDS: Ensure Plus High Protein 120 ML LIQUID PO ×2 (17:18→22:32)
[2023-05-18] MEDS: 0.9% Saline Lock 10 ML Syringe IV (22:32)
[2023-05-19] VITALS (18 sets, daily range): BP systolic 121–147; BP diastolic 63–91; PULSE 58–72; RESP 16–28; TEMP 36.5–36.7; O2SAT 82–97
--- NOTE | 2023-05-19 07:18 | PCM.PN.CARD ---
Subjective Subjective Patient seen and evaluated. Events of the weekend noted. It appears that the ventricular lead has moved. Objective Data Vital Signs: Vital Signs Temp Pulse Resp BP Pulse Ox O2 Del Method O2 Flow Rate 98.0 F 65 18 139/78 H 96 Nasal Cannula 2 05/19/23 05:06 05/19/23 05:06 05/19/23 05:06 05/19/23 05:06 05/19/23 05:06 05/19/23 05:06 05/19/23 05:06 Oxygen Flow Rate (L/min) 2 Oxygen Delivery Method Nasal Cannula Weight: 158 lb 11.725 oz Body Mass Index (BMI) 24.1 Intake & Output: Intake and Output for Last 24 Hours 05/17/23 05/18/23 05/19/23 23:59 23:59 23:59 Intake Total 690 / 690 770 / 770 0 / 0 Output Total 150 / 150 Balance 690 / 690 620 / 620 0 / 0 Lab / Micro Data 05/15/23 06:20 05/15/23 06:20 Rhythm Strip Rhythm Strip: Bradycardia Rate: 45 Ectopy: PVC(s) Cardiology Labs/Tests Rhythm: EKG: ECHO: Stress Test: Cardiac Cath: PCI: CT Surgery: Holter monitor: EPS: PPM: CXR: Chest CT Scan: Radiography Diagnostic Testing: Radiology Impression Chest X-Ray 05/18/23 12:31 IMPRESSION: No interval change Electronically Signed: Yuan Rivera MD at 15:00 EDT Reading Location ID and State: [address] [place] [address] , Service support , Physical Exam Const alert, oriented x3 and no apparent distress General Appearance: cooperative HEENT hearing grossly normal bilaterally Head and Scalp: atraumatic Eyes EOMs intact bilaterally Neck General: normal visual inspection Chest inspection of chest normal and palpation of chest normal Resp normal respiratory effort Auscultation: clear to auscultation bilaterally Cardio regular rate, regular rhythm, S1 normal heart sound and S2 normal heart sound Jugular Venous Distention: JVD GI normal to inspection, nondistended, normoactive bowel sounds Extremity normal capillary refill and no pedal edema Peripheral Pulses: Yes pulses 2+ throughout and femoral pulses present Skin no rashes or lesions noted Neuro oriented x3 and CN's II-XII intact bilaterally Psych Appearance: grossly normal and appropriate Assessment & Plan Assessment/Plan (1) High degree atrioventricular block: PLAN: High degree AV block? Cardiology placed PPM w atrial and ventricular leads on 05/15.? Will readjust ventricular lead this afternoon.? Appears to have dislodged with him moving his arm freely. (2) COVID-19: PLAN: No longer on isolation. Appears to be breathing fairly well. (3) Benign essential hypertension: PLAN: Blood pressure appears to be under fairly good control at this time. No changes will be made.
[2023-05-19] MEDS: Ipratropium/Albuterol Sulfate 3 ML AMPUL.NEB INHALATION ×3 (07:26→20:30)
--- NOTE | 2023-05-19 07:52 | PN.HOSP_ITS ---
Reason for Visit Reason for Visit: Diagnoses Essential (primary) hypertension (05/14/23) Other atrioventricular block (05/14/23) COVID-19 (05/14/23) Subjective Subjective No new complaints. States that he understands the reason for not moving his arm for pacemaker. Objective Data Objective Data Vital Signs: Vital Signs Temp Pulse Resp BP Pulse Ox O2 Del Method O2 Flow Rate 36.7 C 65 18 139/78 H 96 Nasal Cannula 2 05/19/23 05:06 05/19/23 05:06 05/19/23 05:06 05/19/23 05:06 05/19/23 05:06 05/19/23 05:06 05/19/23 05:06 Oxygen Flow Rate (L/min) 2 Oxygen Delivery Method Nasal Cannula Weight: 72 kg Body Mass Index (BMI) 24.1 Intake & Output: Intake and Output for Last 24 Hours 05/17/23 05/18/23 05/19/23 23:59 23:59 23:59 Intake Total 690 / 690 770 / 770 0 / 0 Output Total 150 / 150 Balance 690 / 690 620 / 620 0 / 0 Lab / Micro Data 05/15/23 06:20 05/15/23 06:20 Micro: Microbiology 05/15/23 20:05 Urine, Clean Catch Legionella Antigen - Final 05/15/23 20:05 Urine, Clean Catch Streptococcus pneumoniae Antigen (M - Final 05/14/23 15:17 Blood Culture (Wb) - Anticubital Left Blood Culture - Preliminary No growth in 48 hours. 05/14/23 15:10 Blood Culture (Wb) - Arm Left Blood Culture - Preliminary No growth in 48 hours. 05/14/23 08:48 Mucosa - Nose SARS-CoV-2, Influenza & RSV (PCR) - Final SARS-CoV-2 (COVID 19 PCR) Radiography Diagnostic Testing: Radiology Impression Chest X-Ray 05/18/23 12:31 IMPRESSION: No interval change Electronically Signed: Yuan Rivera MD at 15:00 EDT , Rhythm Strip Rhythm Strip: Bradycardia Rate: 45 Ectopy: PVC(s) Physical Exam Const alert and no apparent distress Constitutional Narrative: sling on LUE. afebrile. Psych affect normal Assessment & Plan Assessment/Plan (1) High degree atrioventricular block: (2) COVID-19: PLAN: Plan High degree AV block * Cardiology placed PPM w atrial and ventricular leads on 05/15. * Cardiology to readjust ventricular lead. * Concern pt may have dislodged lead with moving his arm freely. COVID 19 * subsequent visit * diagnosed 05/08, still positive on the . Was ill 1-week prior to positive test. Now taken out of isolation. * chronic changes on CXR. I dont appreciate any retrocardiac infiltrates as mentioned by radiology. Xray appears to be poor inspiratory effort. Encephalopathy * resolved. likely multifactorial. * prednisone discontinued * started on QHS quetiapine Chronic conditions: * Hypertension: Blood pressure is controlled despite not on his normal antihypertensives (amlopidine, Lisinopril/HCTZ) * Chronic nicotine use, smoker, 2 packs/day for about [address] Steel in pulmonary clinic. During previous clinic visit he was counseled to quit smoking DVT prophylaxis on Lovenox Disposition: TBD. Plan for SNF when ready. Charges/Coding Visit Charges Inpatient E&M: 39106 Subs Hosp L1
[2023-05-19] MEDS: QUEtiapine 25 MG Tablet PO (08:38)
[2023-05-19] MEDS: Ceftriaxone 1 GM/50 ML BAG IV (08:44)
[2023-05-19 08:58] LABS: Bedside Glucose 93 mg/dL (74-106)
--- NOTE | 2023-05-19 09:03 | CASEMGMT ---
Discharge Planning Updates sent to [facility] and [facility] via [employer]. Zahra Montana DC Planning Asst.
--- NOTE | 2023-05-19 09:21 | CASEMGMT ---
Discharge Planning CC declined. SW updated. Zahra Montana, Discharge Planning Asst.
--- NOTE | 2023-05-19 15:56 | PCM.OP.PRO ---
Procedure Report Date of Procedure: 05/19/23 Pacemaker lead revision Patient was brought to the cardiac catheterization lab in the postabsorptive nonsedated state. Informed consent was obtained. Patient was prepped and draped in the usual sterile manner. An incision was made over the old pacemaker incision and exposed to the pacemaker. The pacemaker pocket was then irrigated with antibiotic solution and the pacemaker device was explanted from the pocket. The ventricular lead was identified and disconnected from the pacemaker. The sutures on the leads were removed and a wire was passed through the right ventricular lead and the lead was freed from the ventricular myocardium. Patient was observed for a few minutes was noted to be hemodynamically stable. The lead was then advanced and placed in a different position and tested and the device measurements were noted to be an R wave of 21.5 mV threshold 0.4 V at point 4 ms and impedance of 739 ohms recurrent 0.5 mA. The lead was then connected back to the device and the lead was sutured in place with 2-0 silk. The pocket was then copiously irrigated once again with antibiotic solution and the wound was closed in 2 layers with 3-0 Vicryl and 4-0 Vicryl. The patient was transferred out of the [employer] in stable condition.
[2023-05-19] MEDS: Ensure Plus High Protein 120 ML LIQUID PO (17:26)
[2023-05-19] MEDS: 0.9% Normal Saline (1000mL) 1,000 ML 15 ML IV ×2 (17:27→17:28)
--- NOTE | 2023-05-19 21:25 | RAD_ITS ---
STUDY: X-RAY CHEST REASON FOR EXAM: Male, 78 years old. Increase in o2 TECHNIQUE: Single AP portable view of the chest. COMPARISON: May 18, 2023 FINDINGS: Dual chamber pacemaker device on the left is stable. There are monitoring and support devices. There are mild lower lung increased opacities. There is no demonstrated pleural abnormality. Normal size heart. Normal mediastinum and lori. Normal visualized pulmonary arteries. Normal visualized aortic arch and descending thoracic aorta. There is demineralization of the osseous structures. Normal visualized ribs, clavicles, and shoulders. There is no demonstrated abnormality of the visualized soft tissue structures of the upper abdomen. RAD/Chest 1 View (Portable) IMPRESSION: Lower lung infiltrates or edema. Electronically Signed: Zackery Limon MD at 23:03 EDT ,
[2023-05-20] VITALS (29 sets, daily range): BP systolic 135–148; BP diastolic 69–86; PULSE 62–83; RESP 18–23; TEMP 36.5–36.8; O2SAT 84–98
[2023-05-20] MEDS: LORazepam 2 MG/ML Syringe 0.5 MG IV (01:09)
[2023-05-20 01:28] LABS: Allen Test Positive; Base Excess 2 mmol/L (-2 to +2); Bicarbonate 26.6 mmol/L (22-26); Blood Gas Specimen Type ART; Mode Not entered; O2 Delivery Device Venti Mask; PO2 50 mmHG (75-100); SITE L Radial; SO2 86 % (95-99); Total Carbon Dioxide 28 mmol/L; pCO2 41.3 mmHg (35-45); pH 7.42 (7.35-7.45)
[2023-05-20] MEDS: Ipratropium/Albuterol Sulfate 3 ML AMPUL.NEB INHALATION ×3 (02:18→10:29)
--- NOTE | 2023-05-20 08:03 | PCM.PN.HOSP ---
Reason for Visit Reason for Visit: Diagnoses Essential (primary) hypertension (05/14/23) Other atrioventricular block (05/14/23) COVID-19 (05/14/23) Subjective Subjective Feels well. Objective Data Objective Data Vital Signs: Vital Signs Temp Pulse Resp BP Pulse Ox O2 Del Method O2 Flow Rate 36.8 C 67 18 139/69 H 94 Venturi Mask 12 05/20/23 06:00 05/20/23 07:00 05/20/23 07:00 05/20/23 06:00 05/20/23 07:00 05/20/23 07:00 05/20/23 06:00 FiO2 50 05/20/23 07:00 Oxygen Flow Rate (L/min) 12 Oxygen Delivery Method Venturi Mask Weight: 72 kg Body Mass Index (BMI) 24.1 Intake & Output: Intake and Output for Last 24 Hours 05/18/23 05/19/23 05/20/23 23:59 23:59 23:59 Intake Total 770 / 770 179.00 / 179.00 Output Total 150 / 150 250 / 250 100 / 100 Balance 620 / 620 -71.00 / -71.00 -100 / -100 Lab / Micro Data 05/15/23 06:20 05/15/23 06:20 Labs: Laboratory Results - last 24 hr 05/19/23 08:36: POC Glucose 93 Micro: Microbiology 05/15/23 20:05 Urine, Clean Catch Legionella Antigen - Final 05/15/23 20:05 Urine, Clean Catch Streptococcus pneumoniae Antigen (M - Final 05/14/23 15:17 Blood Culture (Wb) - Anticubital Left Blood Culture - Preliminary No growth in 48 hours. 05/14/23 15:10 Blood Culture (Wb) - Arm Left Blood Culture - Preliminary No growth in 48 hours. 05/14/23 08:48 Mucosa - Nose SARS-CoV-2, Influenza & RSV (PCR) - Final SARS-CoV-2 (COVID 19 PCR) ABG Data ABG results: ABG 05/20/23 01:24 Specimen Type ART Sample Site L Radial pH 7.42 Bicarbonate Actual 26.6 H Total CO2 28 Base Excess 2 O2 Saturation 86 L O2 % 50.0 ABG pCO2 41.3 ABG pO2 50 L Luciano Test Positive O2 Delivery Device Venti Mask Vent Mode Not entered Radiography Diagnostic Testing: Radiology Impression Chest X-Ray 05/19/23 21:25 IMPRESSION: Lower lung infiltrates or edema. Electronically Signed: Zackery Limon MD at 23:03 EDT , Rhythm Strip Rhythm Strip: Bradycardia Rate: 45 Ectopy: PVC(s) Physical Exam Const alert and no apparent distress Constitutional Narrative: left arm in sling with arm raised slightly with remote in hand. Resp normal respiratory effort, no retractions, no use of accessory muscles and clear to auscultation bilaterally Cardio regular rate, regular rhythm, S1 normal heart sound and S2 normal heart sound GI normal to inspection, nondistended, normoactive bowel sounds, soft to palpation, non-tender and non-distended Extremity normal to inspection, full ROM and no clubbing, cyanosis or edema Neuro Sensorium / Orientation: awake, alert and oriented to person Assessment & Plan Assessment/Plan (1) High degree atrioventricular block: (2) COVID-19: PLAN: Plan High degree AV block Cardiology placed PPM w atrial and ventricular leads on 05/15. Cardiology to readjusted ventricular lead 05/18. Concern pt may have dislodged lead with moving his arm freely. COVID 19 subsequent visit diagnosed 05/08, still positive on the . Was ill 1-week prior to positive test. Now taken out of isolation. chronic changes on CXR. I dont appreciate any retrocardiac infiltrates as mentioned by radiology. Xray appears to be poor inspiratory effort. Encephalopathy resolved. likely multifactorial. prednisone discontinued started on QHS quetiapine Chronic conditions: Hypertension: Blood pressure is controlled despite not on his normal antihypertensives (amlopidine, Lisinopril/HCTZ) Chronic nicotine use, smoker, 2 packs/day for about [address] Steel in pulmonary clinic. During previous clinic visit he was counseled to quit smoking DVT prophylaxis on Lovenox Disposition: TBD. Plan for SNF when ready. Charges/Coding Visit Charges Inpatient E&M: 63039 Subs Hosp L2
--- NOTE | 2023-05-20 08:50 | PCM.PN.CARD ---
Subjective Subjective Patient seen and evaluated. Appears to be doing better. More cooperative. Objective Data Vital Signs: Vital Signs Temp Pulse Resp BP Pulse Ox O2 Del Method O2 Flow Rate 98.2 F 69 20 H 141/72 H 93 High Flow 6 05/20/23 08:00 05/20/23 08:00 05/20/23 08:00 05/20/23 08:00 05/20/23 08:12 05/20/23 08:12 05/20/23 08:12 FiO2 50 05/20/23 07:30 Oxygen Flow Rate (L/min) 6 Oxygen Delivery Method High Flow Weight: 158 lb 11.725 oz Body Mass Index (BMI) 24.1 Intake & Output: Intake and Output for Last 24 Hours 05/18/23 05/19/23 05/20/23 23:59 23:59 23:59 Intake Total 770 / 770 179.00 / 179.00 Output Total 150 / 150 250 / 250 100 / 100 Balance 620 / 620 -71.00 / -71.00 -100 / -100 Lab / Micro Data 05/15/23 06:20 05/15/23 06:20 Labs: Laboratory Results - last 24 hr 05/19/23 08:36: POC Glucose 93 ABG Data ABG results: ABG 05/20/23 01:24 Specimen Type ART Sample Site L Radial pH 7.42 Bicarbonate Actual 26.6 H Total CO2 28 Base Excess 2 O2 Saturation 86 L O2 % 50.0 ABG pCO2 41.3 ABG pO2 50 L Luciano Test Positive O2 Delivery Device Venti Mask Vent Mode Not entered Rhythm Strip Rhythm Strip: Bradycardia Rate: 45 Ectopy: PVC(s) Cardiology Labs/Tests 05/20/23 01:24: pH 7.42, Bicarbonate Actual 26.6 H, Base Excess 2, O2 Saturation 86 L, ABG pCO2 41.3, ABG pO2 50 L, Luciano Test Positive Rhythm: EKG: ECHO: Stress Test: Cardiac Cath: PCI: CT Surgery: Holter monitor: EPS: PPM: CXR: Chest CT Scan: Radiography Diagnostic Testing: Radiology Impression Chest X-Ray 05/19/23 21:25 IMPRESSION: Lower lung infiltrates or edema. Electronically Signed: Zackery Limon MD at 23:03 EDT , Physical Exam Const alert, oriented x3 and no apparent distress General Appearance: cooperative HEENT hearing grossly normal bilaterally Head and Scalp: atraumatic Eyes EOMs intact bilaterally Neck General: normal visual inspection Chest inspection of chest normal and palpation of chest normal Resp normal respiratory effort Auscultation: clear to auscultation bilaterally Cardio regular rate, regular rhythm, S1 normal heart sound and S2 normal heart sound Jugular Venous Distention: JVD GI normal to inspection, nondistended, normoactive bowel sounds Extremity normal capillary refill and no pedal edema Peripheral Pulses: Yes pulses 2+ throughout and femoral pulses present Skin no rashes or lesions noted Neuro oriented x3 and CN's II-XII intact bilaterally Psych Appearance: grossly normal and appropriate Assessment & Plan Assessment/Plan (1) High degree atrioventricular block: PLAN: High degree AV block? Pacemaker repositioned yesterday. Appears to be functioning well today with appropriate threshold and impedance levels. Plan will be to keep him (2) COVID-19: PLAN: No longer on isolation. Appears to be breathing fairly well. (3) Benign essential hypertension: PLAN: Blood pressure appears to be under fairly good control at this time. No changes will be made.
[2023-05-20] MEDS: Ensure Plus High Protein 120 ML LIQUID PO (10:58)
[2023-05-20] MEDS: Enoxaparin 40 MG/0.4 ML Syringe SC (10:59)
[2023-05-20] MEDS: Senna/Docusate Sodium 1 Tablet 2 TABLET PO (10:59)
[2023-05-20] MEDS: QUEtiapine 25 MG Tablet PO (10:59)
[2023-05-20] MEDS: 0.9% Saline Lock 10 ML Syringe IV (11:00)
[2023-05-20] MEDS: Ceftriaxone 1 GM/50 ML BAG IV (11:15)
--- NOTE | 2023-05-20 11:31 | CASEMGMT ---
SW met with patient. Introduced self and role at [facility]. Patient remembered SW. SW reminded patient of the discussion the Friday SW had with him about a d/c plan. Patient remembered talking about d/c and going to a facility short term. SW told patient that based on he and his sister's preferences referrals were made to [facility] and [facility]. SW let patient know [facility] accepted patient. SW asked patient if that sounds good and patient said it did. SW will contact patient's sister and updated her as well. Maryjo CRUZ
--- NOTE | 2023-05-20 11:56 | PCM.TXEXTCAR ---
Diet Diet Order/Speech Therapy: 05/20/23 11:50 Diet: Regular - General Food consistency:: Soft & Bite Sized Liquid Consistency:: Regular/Thin Is pt able to select menu?: No Diet Comments: Direct Supervision/Assist Feeding, meds whole 1 at a time Routine Orders/Code Status Code Status: Full Code Wound(s) right arm: Wound Type: Skin Tear left arm: Wound Type: Skin Tear Left upper chest: Wound Type: Surgical Incision Therapies Weight Bearing: Non weight bearing Extremity Affected:: Left Upper (left arm to remain in sling until ok'd by cardiology. Patient is not to move his left arm, but may hold small objects (such as remotes) in his left hand. May remove sling for bathing and changing clothes. ) Physical Therapy: Eval and Treat Occupational Therapy: Eval and Treat Problem/Diagnosis (1) High degree atrioventricular block: Status: Acute Code(s): I44.39 - Other atrioventricular block (2) COVID-19: Status: Acute Code(s): U07.1 - COVID-19 Plan High degree AV block Cardiology placed PPM w atrial and ventricular leads on 05/15. Cardiology to readjusted ventricular lead 05/18. Concern pt may have dislodged lead with moving his arm freely. COVID 19 subsequent visit diagnosed 05/08, still positive on the . Was ill 1-week prior to positive test. Now taken out of isolation. chronic changes on CXR. I dont appreciate any retrocardiac infiltrates as mentioned by radiology. Xray appears to be poor inspiratory effort. Encephalopathy resolved. likely multifactorial. prednisone discontinued started on QHS quetiapine Chronic conditions: Hypertension: Blood pressure is controlled despite not on his normal antihypertensives (amlopidine, Lisinopril/HCTZ) Chronic nicotine use, smoker, 2 packs/day for about [address] Steel in pulmonary clinic. During previous clinic visit he was counseled to quit smoking DVT prophylaxis on Lovenox Disposition: TBD. Plan for SNF when ready. Allergies/Procedures Done in Hospital Allergies No Known Allergies Allergy (Verified 09/11/21 01:37) Procedures: - (pacemaker. ) Type of Care/Length of Stay Estimated LOS: Convalescent Care Less Than 30 days Type of Care Needed: Skilled Rehab Potential: Fair Prognosis: Good Additional Orders/Day of Discharge Day of Discharge: 05/20/23 Dietary and Speech Recommendations Dietitian Recommendations/Changes: Resume cardiac diet as tolerated s/p procedure. Will continue ensure plus high protein 120mL 4x/day w/ medpass. Adjust ONS as needed. Follow Up Care Please Follow Up With: El Giang MD Discharge Plan Admission Admit Date/Time: 05/14/23 08:07 Primary Reason for Your Visit: heart block. Attending Provider: Bc Moore Primary Care Provider: [facility],[place] Consulting Providers: Abhijit Montenegro; Edison García Discharge Orders/Prescriptions Prescriptions: New quetiapine 25 mg Tablet 25 mg PO BID Qty: 0 0RF acetaminophen 325 mg Tablet 325 - 650 mg PO Q6H PRN PRN (Reason: Pain Score 1-10 /fever) Qty: 0 0RF nicotine 14 mg/24 hr Patch 24 Hour 14 mg transdermal 2200 Qty: 0 0RF sennosides-docusate sodium [Stool Softener-Stimulant Laxat] 8.6-50 mg Tablet 2 tab PO BID Qty: 0 0RF Chloraseptic Sore Throat 6-10 mg Lozenge 1 telma mucous membrane Q2H PRN PRN (Reason: COUGH) Qty: 0 0RF Ensure Plus High Protein 0.08 gram-1.5 kcal/mL Liquid 120 ml PO 4X/DAY Qty: 0 0RF Continued simvastatin 40 MG tablet 40 mg PO QHS budesonide-formoterol 1 INHALER inhaler 2 puff inhalation BID latanoprost (PF) 7.5 ML drops 1 drp EACH EYE QHS ipratropium-albuterol 3 ML solution for nebulization 3 ml inhalation Q4H PRN PRN (Reason: Shortness Of Breath) Qty: 30 0RF Discontinued tamsulosin 0.4 MG capsule 0.8 mg PO DAILY amlodipine 2.5 MG tablet 5 mg PO DAILY Patient Comments: PT UNSURE OF DOSE lisinopril-hydrochlorothiazide 1 EACH tablet 2 tab PO DAILY Referrals / Follow Up: [facility] [Provider Group] - Within 1 Month [facility] [Primary Care Provider] - Within 2 Weeks Disposition Disposition (needs filled in before D/C Order can be placed): Assisted Facility
--- NOTE | 2023-05-20 12:00 | CASEMGMT ---
BRIA called patient's sister Fatmata and let her know [facility] accepted patient. BRIA also let Fatmata know patient will be discharged today. Fatmata was surprised that patient is being discharged today. BRIA told Fatmata that SW can set up transport, but it would likely not be covered by insurance. Fatmata said they will take him, but she does not know when they will be in to get patient. Fatmata asked if patient could stay another day. BRIA explained patient is medically ready so there is no medical reason to keep patient in the hospital. Fatmata said she will be in sometime today to get patient. BRIA notified RN. Fatmata mentioned that she had a voice mail from the [place]. BRIA explained to her that the social services assistant at the [facility] will be able to help get help set up at home. BRIA called Luigi at the [facility]. BRIA let Luigi know that patient is agreeable for now to go to [facility]. BRIA will let her know if this changes, but he should go today. Luigi thanked BRIA for the update. Plan: d/c to [facility] under skilled level of care on a convalescent stay. Family will transport patient via private vehicle. Maryjo CRUZ
--- NOTE | 2023-05-20 12:02 | DS.PCM_ITS ---
Providers Date of Admission: 05/14/23 Primary Care Physician: [place] Hospital Consultations 05/14/23 09:04 Consult: Cardiology Routine Consulting Provider: Abhijit Montenegro Reason for Consult: Complete heart block/high degree. kristina EMERGENT Consult: No MD Notified: Yes Date Notified: 05/14/23 Time Notified: 08:13 Method of Notification: ED Physician Initiated Reason For Visit: BRADYCARDIA, HIGH DEGREE AV BLOCL Diagnosis Discharge Diagnosis (1) High degree atrioventricular block: Status: Acute Code(s): I44.39 - Other atrioventricular block (2) COVID-19: Status: Acute Code(s): U07.1 - COVID-19 Plan High degree AV block * Cardiology placed PPM w atrial and ventricular leads on 05/15. * Cardiology to readjusted ventricular lead 05/18. * Concern pt may have dislodged lead with moving his arm freely. COVID 19 * subsequent visit * diagnosed 05/08, still positive on the . Was ill 1-week prior to positive test. Now taken out of isolation. * chronic changes on CXR. I dont appreciate any retrocardiac infiltrates as mentioned by radiology. Xray appears to be poor inspiratory effort. Encephalopathy * resolved. likely multifactorial. * prednisone discontinued * started on QHS quetiapine Chronic conditions: * Hypertension: Blood pressure is controlled despite not on his normal antihypertensives (amlopidine, Lisinopril/HCTZ) * Chronic nicotine use, smoker, 2 packs/day for about [address] Steel in pulmonary clinic. During previous clinic visit he was counseled to quit smoking DVT prophylaxis on Lovenox Disposition: TBD. Plan for SNF when ready. Medications at Discharge Home Medications simvastatin 40 mg tablet 40 mg PO QHS cholesterol 08/14/14 budesonide-formoterol HFA 160 mcg-4.5 mcg/actuation aerosol inhaler 2 puff inhalation BID breathing 05/22/18 latanoprost (PF) 0.005 % eye drops 1 drp EACH EYE QHS eye drops 05/22/18 ipratropium 0.5 mg-albuterol 3 mg (2.5 mg base)/3 mL nebulization soln 3 ml inhalation Q4H PRN PRN Shortness Of Breath ##30 05/25/18 acetaminophen 325 mg tablet 325 - 650 mg (1 - 2 x 325 mg) PO Q6H PRN PRN Pain Score 1-10 /fever #0 tabs 05/20/23 benzocaine 6 mg-menthol 10 mg lozenges (Chloraseptic Sore Throat) 1 telma mucous membrane Q2H PRN PRN COUGH #0 ea 05/20/23 food supplemt, lactose-reduced 0.08 gram-1.5 kcal/mL oral liquid (Ensure Plus High Protein) 120 ml PO 4X/DAY #0 mL 05/20/23 nicotine 14 mg/24 hr daily transdermal patch 14 mg transdermal 2200 #0 ea 05/01 11/24 quetiapine 25 mg tablet 25 mg PO BID #0 tabs 05/20/23 sennosides 8.6 mg-docusate sodium 50 mg tablet (Stool Softener-Stimulant Laxative) 2 tab PO BID #0 tabs 05/20/23 Hospital Course Operations None Procedures - (dual chamber pacemaker. ventricular lead replacement. ) Summary of Care Provided Minutes Spent on Discharge: 32 Hospital Course: Patient presents with shortness of breath. Patient was found COVID-19 during previous emergency room visit. Concerned patient may have developing pneumonia started with ceftriaxone azithromycin. Patient was found to have a high degree heart block. Patient underwent a pacemaker placement on the . It was noted later that the ventricular lead was not pacing. There is concern the patient may have been moving his arm freely that may potentially dislodge the ventricular lead. On the , the ventricular lead was reattached and reconnected. Patient has done well. Patient has required reassurance on numerous occasions about keeping his left arm still. Patient did have issues with some agitation and did require being on Seroquel. Pt has completed his COVID-19 isolation. Weight / BMI Weight Weight: 72 kg Body Mass Index (BMI) 24.1 ABG / Lab / Microbiology Data 05/15/23 06:20 05/15/23 06:20 Microbiology: Microbiology 05/14/23 15:17 Blood Culture (Wb) - Anticubital Left Blood Culture - Final No growth in 5 days. 05/14/23 15:10 Blood Culture (Wb) - Arm Left Blood Culture - Final No growth in 5 days. 05/15/23 20:05 Urine, Clean Catch Legionella Antigen - Final 05/15/23 20:05 Urine, Clean Catch Streptococcus pneumoniae Antigen (M - Final 05/14/23 08:48 Mucosa - Nose SARS-CoV-2, Influenza & RSV (PCR) - Final SARS-CoV-2 (COVID 19 PCR) ABG: ABG 05/20/23 01:24 Specimen Type ART Sample Site L Radial pH 7.42 Bicarbonate Actual 26.6 H Total CO2 28 Base Excess 2 O2 Saturation 86 L O2 % 50.0 ABG pCO2 41.3 ABG pO2 50 L Luciano Test Positive O2 Delivery Device Venti Mask Vent Mode Not entered Radiography Diagnostic Testing: Radiology Impression Chest X-Ray 05/19/23 21:25 IMPRESSION: Lower lung infiltrates or edema. Electronically Signed: Zackery Limon MD at 23:03 EDT , D/C Instructions Discharge Diet: No restrictions (as you feel able. No excessive stretching. No lifting your arm over your head (keep elbow below shoulder level) until seen for your pacemaker check. Do not lift your elbow away from your side until you are seen for your first visit. Keep the arm sling on if it helps remind you not to lift your arm.) May shower in (days): 2 Additional Activity Instructions: May shower or bathe on [day 3]. Do not scrub the incision or soak in the tub. Just wash with soap and let the water run over the incision. Gently pat dry with towel. Medications: Take your pain medication as directed. Refer to your discharge instruction sheet for a list of medications you are to take. Call your doctor if your incision/area has: Continuous Slow Oozing, Sudden Increased Bleeding, Increased Pain/ Swelling, Increased Redness, Foul Smelling Discharge and Swelling at the incision site Call your doctor if you observe: Fever of 101 or Higher, Shortness of breath, Dizziness, Fainting spells, Swelling in the ankles, Chest pain, Prolonged hiccupping and Increased palpitations (irregular heartbeat) Suture Line Care: Avoid Pulling/Pushing and Avoid Pinching/Bending Additional Dressing/Incision Instructions: When dressing is removed, wash and dry incision. Keep covered with a light bandage if it is rubbing against your clothing. Do not cover the incision with an airtight bandage. Change the bandage daily. Do not remove steri strips. The strips will fall off on their own. Please Follow Up With: El Giang MD When: Pacemaker follow-up in the pacemaker clinic on May 21 at 2 PM. Meaningful Use Info Meaningful Use Diagnoses (Choose all that apply): None applicable Discharge Plan Admission Admit Date/Time: 05/14/23 08:07 Primary Reason for Your Visit: heart block. Attending Provider: Bc Moore Primary Care Provider: [facility],[place] Consulting Providers: Abhijit Montenegro; Edison García Discharge Orders/Prescriptions Prescriptions: New quetiapine 25 mg Tablet 25 mg PO BID Qty: 0 0RF acetaminophen 325 mg Tablet 325 - 650 mg PO Q6H PRN PRN (Reason: Pain Score 1-10 /fever) Qty: 0 0RF nicotine 14 mg/24 hr Patch 24 Hour 14 mg transdermal 2200 Qty: 0 0RF sennosides-docusate sodium [Stool Softener-Stimulant Laxat] 8.6-50 mg Tablet 2 tab PO BID Qty: 0 0RF Chloraseptic Sore Throat 6-10 mg Lozenge 1 telma mucous membrane Q2H PRN PRN (Reason: COUGH) Qty: 0 0RF Ensure Plus High Protein 0.08 gram-1.5 kcal/mL Liquid 120 ml PO 4X/DAY Qty: 0 0RF Continued simvastatin 40 MG tablet 40 mg PO QHS budesonide-formoterol 1 INHALER inhaler 2 puff inhalation BID latanoprost (PF) 7.5 ML drops 1 drp EACH EYE QHS ipratropium-albuterol 3 ML solution for nebulization 3 ml inhalation Q4H PRN PRN (Reason: Shortness Of Breath) Qty: 30 0RF Discontinued tamsulosin 0.4 MG capsule 0.8 mg PO DAILY amlodipine 2.5 MG tablet 5 mg PO DAILY Patient Comments: PT UNSURE OF DOSE lisinopril-hydrochlorothiazide 1 EACH tablet 2 tab PO DAILY Referrals / Follow Up: [facility] [Provider Group] - Within 1 Month [facility] [Primary Care Provider] - Within 2 Weeks Disposition Disposition (needs filled in before D/C Order can be placed): Snf Facility Charges/Coding Visit Charges Inpatient E&M: 05727 Disch Hosp >30min
--- NOTE | 2023-05-20 12:08 | CASEMGMT ---
Discharge Planning Discharge orders and signed med list sent to [facility] via [facility]. Patients sister to transport. Nursing updated. Zahra Montana, Discharge Planning Asst
--- NOTE | 2023-05-20 12:14 | PHA.DC.MR.R ---
Pharmacy [place] Med Reconciliation Pharmacy Service has performed discharge medication reconciliation for this patient. The patient's discharge medication list was reviewed for discrepancies and discrepancies were resolved. Medications at Discharge Home Medications simvastatin 40 mg tablet 40 mg PO QHS cholesterol 08/14/14 budesonide-formoterol HFA 160 mcg-4.5 mcg/actuation aerosol inhaler 2 puff inhalation BID breathing 05/22/18 latanoprost (PF) 0.005 % eye drops 1 drp EACH EYE QHS eye drops 05/22/18 ipratropium 0.5 mg-albuterol 3 mg (2.5 mg base)/3 mL nebulization soln 3 ml inhalation Q4H PRN PRN Shortness Of Breath ##30 05/25/18 acetaminophen 325 mg tablet 325 - 650 mg (1 - 2 x 325 mg) PO Q6H PRN PRN Pain Score 1-10 /fever #0 tabs 05/20/23 benzocaine 6 mg-menthol 10 mg lozenges (Chloraseptic Sore Throat) 1 telma mucous membrane Q2H PRN PRN COUGH #0 ea 05/20/23 food supplemt, lactose-reduced 0.08 gram-1.5 kcal/mL oral liquid (Ensure Plus High Protein) 120 ml PO 4X/DAY #0 mL 05/20/23 nicotine 14 mg/24 hr daily transdermal patch 14 mg transdermal 2200 #0 ea 05/20/23 quetiapine 25 mg tablet 25 mg PO BID #0 tabs 05/20/23 sennosides 8.6 mg-docusate sodium 50 mg tablet (Stool Softener-Stimulant Laxative) 2 tab PO BID #0 tabs 05/20/23
[2023-05-20] MEDS: Furosemide 20 MG/2 ML VIAL IV (12:38)
--- NOTE | 2023-05-20 13:19 | CASEMGMT ---
Patient's son actually arrived at [facility] to take patient to [facility]. Maryjo CRUZ
--- NOTE | 2023-05-20 13:58 | NURSING ---
This RN called report at [phone] to Leann at [facility].
--- NOTE | 2023-05-20 14:26 | CL.IE_ITS ---
Patient: FELTON BARBER Study Date: 05/16/2023 Performing: El Giang MD : 1945 Age: 78 Gender: male PROCEDURES PERFORMED [id number]-([id number])INITIAL PACER INSERT+DUAL LEADS INDICATIONS Atrioventricular (AV) block PROCEDURE DETAILS The patient was brought to the Catheterization Lab in the postabsorptive nonsedated state. Informed consent was obtained prior to the procedure. Local anesthetic was given subcutaneously to the left subclavian region with Lidocaine 2%. Access was achieved and a guidewire was advanced into the left subclavian vein. Incision was made to the left upper chest. A peel-away sheath was inserted into the left subclavian vein. PPM ventricular lead was inserted / positioned to right ventricular apex. PPM ventricular lead testing performed. PPM ventricular lead testing performed. PPM atrial lead was inserted / positioned to the right atrial appendage. PPM atrial lead testing performed. The Ventricular PM lead sutured in place with 2-0 Silk. The Atrial lead sutured in place with 2-0 Silk. PPM generator was attached to the lead(s) and inserted into the pocket. Device pocket was irrigated with antibiotic. Subcutaneous closure was completed with 3-0 Vicryl. Skin closure was completed with 4-0 Vicryl. The patient tolerated the procedure well. Estimated Blood Loss: 10 ml's IMPLANTED / EX-PLANTED DEVICES IMPLANTED DEVICE(S): PPM Generator - Blow Mold Machine Operator: [email or web address], Model # L111 , Serial # [id number] PPM Atrial lead - Blow Mold Machine Operator: [email or web address], Model # INGEVITY , Serial # [id number] Ventricular lead - Blow Mold Machine Operator: [employer], Model # INGEVITY , Serial # [id number] DEVICE PARAMETERS ATRIAL LEAD PARAMETERS: 10V test; no diaphragmatic capture P wave- 6.0 (mV) Current- 1.5 (mA) threshold- 0.8 (V) impedence- 550 (OHMS) VENTRICULAR LEAD PARAMETERS: 10V test; no diaphragmatic capture R wave- 16 (mV) Current- 0.5 (mA) threshold- 0.4 (V) impedence- 850 (OHMS) DEVICE PARAMETERS: Mode- DDD Lower rate- 60 Upper rate- 130 CONCLUSIONS / RECOMMENDATIONS Device Conclusions: Successful implantation of a dual chamber pacemaker Device Recommendations: Follow up with Primary Care Physician PROCEDURE MEDICATIONS Fentanyl 50 mcg IV Versed 1 mg IV Versed 1 mg IV Oxygen: 3 L/min via nasal cannula Antibiotic given in appropriate timeframe. Ancef 2 Gm IV @ 05/16/2023 12:23:52 Signed By El Giang MD On 05/16/2023 13:24:14 El Giang MD
== END 2023-05-20 13:08 | disposition skilled nursing facility (03) | DRG 242 ==
LOC: ED 07:50 → PCU 08:17
PROVIDERS: Admitting Provider Internal Medicine; Emergency Provider Emergency Medicine
DX: I44.39 Other atrioventricular block (principal); U07.1 COVID-19; J18.9 Pneumonia, unspecified organism; G93.40 Encephalopathy, unspecified; F23 Brief psychotic disorder; I11.0 Hypertensive heart disease with heart failure; I50.9 Heart failure, unspecified; J44.9 Chronic obstructive pulmonary disease, unspecified; F17.210 Nicotine dependence, cigarettes, uncomplicated; I49.8 Other specified cardiac arrhythmias; Z86.16 Personal history of COVID-19; Z81.8 Family history of other mental and behavioral disorders; Z95.0 Presence of cardiac pacemaker; R45.1 Restlessness and agitation; T38.0X5A Adverse effect of glucocorticoids and synthetic analogues, initial encounter
CPT/HCPCS: 33208; 33215; 36415; 36600; 71045; 71046; 80048; 82803; 82962; 83735; 83880; 84100; 84443; 84484; 85025; 87040; 87449; 87631; 87641; 92610; 93005; 93306; 94640; 97116; 97162; 97166; 97530; 97535; 97802; 99152; 99153; 99285; 99406; J7030; J7040; J7050; J7120; A4216; C1894; J1940